=== PATIENT | male | born 1980 | race Caucasian/White ===

== ENCOUNTER → 2017-01-06 | Outpatient (CLI) | payer MEDICARE, OTHER, MEDICAID ==
[~2017-01-06] MED LIST: ACET65TA PO; LOPR50TA PO; MAGN500T2 PO; NEPHROVITE PO; TUMS500C PO; [UNRECOGNIZED DRUG - OTHER] IV
[2017-01-06 09:37] LABS: BASO % 0.4 % (0.0-1.0); EOS # 0.3 K/mm3 (0.0-0.50); EOS % 3.9 % (0.0-3.0); LARGE UNSTAINED CELL # 0.2 K/mm3 (0.0-0.4); LARGE UNSTAINED CELL % 2.5 % (0.0-4.0); LYMPH % 12.2 % (24.0-44.0); MEAN CORPUSCULAR HEMOGLOBIN 28.7 pg (27.0-33.0); MEAN CORPUSCULAR HGB CONC 32.7 g/dl (32.0-36.5); MEAN CORPUSCULAR VOLUME 87.7 fl (80.0-96.0); MONO # 0.5 K/mm3 (0.0-0.8); MONO % 6.7 % (0.0-5.0); NEUTROPHILS # 5.9 K/mm3 (1.8-7.7); NEUTROPHILS % 74.3 % (36.0-66.0); PLATELET COUNT, AUTOMATED 265 k/mm3 (150-450); WHITE BLOOD COUNT 7.9 K/mm3 (4.0-10.0)
[2017-01-06 09:44] LABS: ALBUMIN 3.8 GM/DL (3.2-5.2); ALBUMIN/GLOBULIN RATIO 1.27 (1.00-1.93); ALKALINE PHOSPHATASE 158 U/L (45-117); ALT/SGPT 25 U/L (12-78); ANION GAP 6 MEQ/L (8-16); AST/SGOT 10 U/L (15-37); BILIRUBIN,DIRECT < 0.1 MG/DL (0.0-0.2); BILIRUBIN,TOTAL 0.3 MG/DL (0.2-1.0); BLOOD UREA NITROGEN 28 MG/DL (7-18); CALCIUM LEVEL 8.5 MG/DL (8.5-10.1); CARBON DIOXIDE LEVEL 25 MEQ/L (21-32); CHLORIDE LEVEL 110 MEQ/L (98-107); CREATININE FOR GFR 1.71 MG/DL (0.70-1.30); GLOMERULAR FILTRATION RATE 48.2 (>60); GLUCOSE, FASTING 84 MG/DL (70-105); MAGNESIUM LEVEL 1.7 MG/DL (1.8-2.4); PHOSPHORUS LEVEL 2.9 MG/DL (2.5-4.9); POTASSIUM SERUM 4.6 MEQ/L (3.5-5.1); SODIUM LEVEL 141 MEQ/L (136-145); TOTAL PROTEIN 6.8 GM/DL (6.4-8.2)
== END ==
LOC: M LAB 08:42
PROVIDERS: ATTEND Internal Medicine Nephrology
DX: Z94.0 Kidney transplant status (principal); Z79.899 Other long term (current) drug therapy

== ENCOUNTER → 2017-01-18 | Outpatient (CLI) | payer MEDICARE, OTHER, MEDICAID ==
[2017-01-18 09:24] LABS: BASO % 0.3 % (0.0-1.0); EOS # 0.3 K/mm3 (0.0-0.50); EOS % 4.2 % (0.0-3.0); LARGE UNSTAINED CELL # 0.1 K/mm3 (0.0-0.4); LYMPH # 1.1 K/mm3 (1.5-4.5); LYMPH % 15.7 % (24.0-44.0); MEAN CORPUSCULAR HEMOGLOBIN 28.8 pg (27.0-33.0); MEAN CORPUSCULAR HGB CONC 33.2 g/dl (32.0-36.5); MEAN CORPUSCULAR VOLUME 86.7 fl (80.0-96.0); MONO # 0.5 K/mm3 (0.0-0.8); NEUTROPHILS # 4.9 K/mm3 (1.8-7.7); NEUTROPHILS % 70.8 % (36.0-66.0); PLATELET COUNT, AUTOMATED 257 k/mm3 (150-450); WHITE BLOOD COUNT 6.8 K/mm3 (4.0-10.0)
[2017-01-18 09:46] LABS: ALBUMIN 3.8 GM/DL (3.2-5.2); ALBUMIN/GLOBULIN RATIO 1.23 (1.00-1.93); ALKALINE PHOSPHATASE 158 U/L (45-117); ALT/SGPT 27 U/L (12-78); ANION GAP 8 MEQ/L (8-16); AST/SGOT 10 U/L (15-37); BILIRUBIN,DIRECT < 0.1 MG/DL (0.0-0.2); BILIRUBIN,TOTAL 0.3 MG/DL (0.2-1.0); BLOOD UREA NITROGEN 26 MG/DL (7-18); CALCIUM LEVEL 8.8 MG/DL (8.5-10.1); CARBON DIOXIDE LEVEL 22 MEQ/L (21-32); CHLORIDE LEVEL 111 MEQ/L (98-107); CREATININE FOR GFR 1.66 MG/DL (0.70-1.30); GLOMERULAR FILTRATION RATE 49.9 (>60); GLUCOSE, FASTING 83 MG/DL (70-105); MAGNESIUM LEVEL 1.8 MG/DL (1.8-2.4); PHOSPHORUS LEVEL 2.7 MG/DL (2.5-4.9); POTASSIUM SERUM 4.6 MEQ/L (3.5-5.1); SODIUM LEVEL 141 MEQ/L (136-145); TOTAL PROTEIN 6.9 GM/DL (6.4-8.2)
== END ==
LOC: M LAB 08:31
PROVIDERS: ATTEND Internal Medicine Nephrology
DX: N18.5 Chronic kidney disease, stage 5 (principal); D84.9 Immunodeficiency, unspecified; Z79.899 Other long term (current) drug therapy; Z94.0 Kidney transplant status

== ENCOUNTER → 2017-05-31 | Outpatient (CLI) | payer MEDICARE, OTHER, MEDICAID ==
[2017-05-31 09:49] LABS: BASO % 0.2 % (0.0-1.0); EOS # 0.1 10^3/uL (0.0-0.50); EOS % 1.6 % (0.0-3.0); IMMATURE GRANULOCYTE % 0.5 % (0-0); LYMPH % 11.1 % (24.0-44.0); MEAN CORPUSCULAR HEMOGLOBIN 28.2 pg (27.0-33.0); MEAN CORPUSCULAR HGB CONC 32.5 g/dl (32.0-36.5); MEAN CORPUSCULAR VOLUME 86.7 fl (80.0-96.0); MONO # 0.8 10^3/uL (0.0-0.8); MONO % 8.9 % (0.0-5.0); NEUTROPHILS # 6.7 10^3/uL (1.8-7.7); NEUTROPHILS % 77.7 % (36.0-66.0); PLATELET COUNT, AUTOMATED 289 10^3/uL (150-450); RED CELL DISTRIBUTION WIDTH 13.5 % (11.5-14.5); WHITE BLOOD COUNT 8.6 10^3/uL (4.0-10.0)
[2017-05-31 10:24] LABS: ALBUMIN 3.8 GM/DL (3.2-5.2); ALBUMIN/GLOBULIN RATIO 1.19 (1.00-1.93); ALKALINE PHOSPHATASE 111 U/L (45-117); ALT/SGPT 26 U/L (12-78); ANION GAP 6 MEQ/L (8-16); AST/SGOT 9 U/L (15-37); BILIRUBIN,DIRECT < 0.1 MG/DL (0.0-0.2); BILIRUBIN,TOTAL 0.2 MG/DL (0.2-1.0); BLOOD UREA NITROGEN 20 MG/DL (7-18); CALCIUM LEVEL 8.9 MG/DL (8.5-10.1); CARBON DIOXIDE LEVEL 26 MEQ/L (21-32); CHLORIDE LEVEL 109 MEQ/L (98-107); CHOLESTEROL LEVEL 144 MG/DL (<200); CREATININE FOR GFR 1.45 MG/DL (0.70-1.30); GLOMERULAR FILTRATION RATE 58.3 (>60); GLUCOSE, FASTING 72 MG/DL (70-105); MAGNESIUM LEVEL 1.9 MG/DL (1.8-2.4); PHOSPHORUS LEVEL 2.8 MG/DL (2.5-4.9); POTASSIUM SERUM 4.6 MEQ/L (3.5-5.1); SODIUM LEVEL 141 MEQ/L (136-145); TRIGLYCERIDES LEVEL 72 MG/DL (<150)
== END ==
LOC: M LAB 08:37
PROVIDERS: ATTEND Internal Medicine Nephrology
DX: N18.5 Chronic kidney disease, stage 5 (principal); D84.9 Immunodeficiency, unspecified; Z94.0 Kidney transplant status; Z79.899 Other long term (current) drug therapy

== ENCOUNTER → 2017-10-21 | Outpatient (CLI) | payer MEDICARE, OTHER, MEDICAID ==
[2017-10-21 09:55] LABS: APPEARANCE, URINE CLEAR (CLEAR); BACTERIA, URINE AUTO NEGATIVE (NEGATIVE); BILIRUBIN, URINE AUTO NEGATIVE (NEGATIVE); BLOOD, URINE BLOOD 1+ (NEGATIVE); COLOR, URINE STRAW (YELLOW); GLUCOSE, URINE (UA) AUTO NEGATIVE (NEGATIVE); KETONE, URINE AUTO NEGATIVE (NEGATIVE); LEUKOCYTE ESTERASE, URINE AUTO NEGATIVE (NEGATIVE); MUCUS, URINE SMALL (NEGATIVE); NITRITE, URINE AUTO NEGATIVE (NEGATIVE); PROTEIN, URINE AUTO NEGATIVE (NEGATIVE); RBC, URINE AUTO 0 /HPF (0-3); SPECIFIC GRAVITY URINE AUTO 1.012 (1.002-1.035); SQUAMOUS EPITHELIAL CELL UR AU 0 /HPF (0-6); UROBILINOGEN, URINE AUTO 0.2 mg/dL (0.0-2.0); WBC, URINE AUTO 1 /HPF (0-3)
[2017-10-21 10:25] LABS: CREATININE,RANDOM URINE 80.7 MG/DL; TOTAL PROTEIN,RANDOM URINE 19.2 MG/DL (0.0-12.0)
[2017-10-21 10:32] LABS: ALBUMIN 4.1 GM/DL (3.2-5.2); ALBUMIN/GLOBULIN RATIO 1.37 (1.00-1.93); ALKALINE PHOSPHATASE 86 U/L (45-117); ALT/SGPT 18 U/L (12-78); ANION GAP 7 MEQ/L (8-16); AST/SGOT 8 U/L (7-37); BILIRUBIN,DIRECT 0.1 MG/DL (0.0-0.2); BILIRUBIN,TOTAL 0.3 MG/DL (0.2-1.0); BLOOD UREA NITROGEN 32 MG/DL (7-18); CALCIUM LEVEL 8.6 MG/DL (8.5-10.1); CARBON DIOXIDE LEVEL 24 MEQ/L (21-32); CHLORIDE LEVEL 108 MEQ/L (98-107); CHOLESTEROL LEVEL 141 MG/DL (<200); CHOLESTEROL RISK RATIO 2.431 (<5); CREATININE FOR GFR 1.79 MG/DL (0.70-1.30); GLOMERULAR FILTRATION RATE 45.7 (>60); GLUCOSE, FASTING 91 MG/DL (70-100); HDL CHOLESTEROL 58 MG/DL (>40); LDL CHOLESTEROL 66.6 MG/DL (<100); MAGNESIUM LEVEL 1.8 MG/DL (1.8-2.4); NON-HDL-C 83 MG/DL; PHOSPHORUS LEVEL 2.9 MG/DL (2.5-4.9); POTASSIUM SERUM 4.5 MEQ/L (3.5-5.1); SODIUM LEVEL 139 MEQ/L (136-145); TOTAL PROTEIN 7.1 GM/DL (6.4-8.2); TRIGLYCERIDES LEVEL 82 MG/DL (<150)
[2017-10-21 10:42] LABS: BASO # 0.1 10^3/uL (0.0-0.2); BASO % 0.5 % (0.0-1.0); EOS % 0.2 % (0.0-3.0); HEMATOCRIT 41.3 % (42.0-52.0); HEMOGLOBIN 13.6 g/dl (14.0-18.0); IMMATURE GRANULOCYTE % 1.2 % (0-3.0); LYMPH # 1.5 10^3/uL (1.5-4.5); LYMPH % 13.7 % (24.0-44.0); MEAN CORPUSCULAR HEMOGLOBIN 27.8 pg (27.0-33.0); MEAN CORPUSCULAR HGB CONC 32.9 g/dl (32.0-36.5); MEAN CORPUSCULAR VOLUME 84.5 fl (80.0-96.0); MONO # 0.9 10^3/uL (0.0-0.8); MONO % 7.9 % (0.0-5.0); NEUTROPHILS # 8.5 10^3/uL (1.8-7.7); NEUTROPHILS % 76.5 % (36.0-66.0); PLATELET COUNT, AUTOMATED 262 10^3/uL (150-450); RED BLOOD COUNT 4.89 10^6/uL (4.30-6.10); RED CELL DISTRIBUTION WIDTH 13.2 % (11.5-14.5); WHITE BLOOD COUNT 11.1 10^3/uL (4.0-10.0)
== END ==
LOC: M LAB 08:56
DX: Z94.0 Kidney transplant status (principal); N18.5 Chronic kidney disease, stage 5; D84.9 Immunodeficiency, unspecified; Z79.899 Other long term (current) drug therapy
CPT/HCPCS: 83735

== ENCOUNTER → 2017-12-09 | Outpatient (CLI) | payer OTHER, MEDICARE, MEDICAID ==
[2017-12-09 10:41] LABS: BASO % 0.3 % (0.0-1.0); EOS # 0.1 10^3/uL (0.0-0.50); EOS % 0.9 % (0.0-3.0); HEMATOCRIT 40.4 % (42.0-52.0); HEMOGLOBIN 13.1 g/dl (13.5-17.5); IMMATURE GRANULOCYTE % 0.5 % (0-3.0); LYMPH # 1.1 10^3/uL (1.5-4.5); LYMPH % 11.8 % (24.0-44.0); MEAN CORPUSCULAR HEMOGLOBIN 28.1 pg (27.0-33.0); MEAN CORPUSCULAR HGB CONC 32.4 g/dl (32.0-36.5); MEAN CORPUSCULAR VOLUME 86.5 fl (80.0-96.0); MONO # 0.7 10^3/uL (0.0-0.8); MONO % 7.3 % (0.0-5.0); NEUTROPHILS # 7.4 10^3/uL (1.8-7.7); NEUTROPHILS % 79.2 % (36.0-66.0); PLATELET COUNT, AUTOMATED 256 10^3/uL (150-450); RED BLOOD COUNT 4.67 10^6/uL (4.30-6.10); RED CELL DISTRIBUTION WIDTH 14.4 % (11.5-14.5); WHITE BLOOD COUNT 9.3 10^3/uL (4.0-10.0)
[2017-12-09 10:44] LABS: APPEARANCE, URINE CLEAR (CLEAR); BACTERIA, URINE AUTO NEGATIVE (NEGATIVE); BILIRUBIN, URINE AUTO NEGATIVE (NEGATIVE); BLOOD, URINE BLOOD 1+ (NEGATIVE); COLOR, URINE YELLOW (YELLOW); GLUCOSE, URINE (UA) AUTO NEGATIVE (NEGATIVE); KETONE, URINE AUTO NEGATIVE (NEGATIVE); LEUKOCYTE ESTERASE, URINE AUTO NEGATIVE (NEGATIVE); NITRITE, URINE AUTO NEGATIVE (NEGATIVE); PROTEIN, URINE AUTO NEGATIVE (NEGATIVE); RBC, URINE AUTO 2 /HPF (0-3); SPECIFIC GRAVITY URINE AUTO 1.015 (1.002-1.035); SQUAMOUS EPITHELIAL CELL UR AU 0 /HPF (0-6); UROBILINOGEN, URINE AUTO 0.2 mg/dL (0.0-2.0); WBC, URINE AUTO 0 /HPF (0-3)
[2017-12-09 11:09] LABS: ALBUMIN/GLOBULIN RATIO 1.25 (1.00-1.93); ALKALINE PHOSPHATASE 85 U/L (45-117); ALT/SGPT 20 U/L (12-78); ANION GAP 7 MEQ/L (8-16); AST/SGOT 8 U/L (7-37); BILIRUBIN,DIRECT < 0.1 MG/DL (0.0-0.2); BILIRUBIN,TOTAL 0.3 MG/DL (0.2-1.0); BLOOD UREA NITROGEN 28 MG/DL (7-18); CALCIUM LEVEL 8.6 MG/DL (8.5-10.1); CARBON DIOXIDE LEVEL 23 MEQ/L (21-32); CHLORIDE LEVEL 112 MEQ/L (98-107); CREATININE FOR GFR 1.54 MG/DL (0.70-1.30); GLOMERULAR FILTRATION RATE 54.1 (>60); GLUCOSE, FASTING 77 MG/DL (70-100); MAGNESIUM LEVEL 1.7 MG/DL (1.8-2.4); PHOSPHORUS LEVEL 2.6 MG/DL (2.5-4.9); POTASSIUM SERUM 4.5 MEQ/L (3.5-5.1); SODIUM LEVEL 142 MEQ/L (136-145); TOTAL PROTEIN 7.2 GM/DL (6.4-8.2)
== END ==
LOC: M LAB 09:55
DX: N18.5 Chronic kidney disease, stage 5 (principal); Z94.0 Kidney transplant status; D84.9 Immunodeficiency, unspecified; Z79.899 Other long term (current) drug therapy
CPT/HCPCS: 83735

== ENCOUNTER 2018-05-18 08:29 | Inpatient (IN) | payer MEDICARE, MEDICAID ==
[2018-05-18 09:43] LABS: BASO % 0.2 % (0.0-1.0); EOS # 0.1 10^3/uL (0.0-0.50); EOS % 0.6 % (0.0-3.0); HEMOGLOBIN 14.1 g/dl (13.5-17.5); IMMATURE GRANULOCYTE % 0.6 % (0-3.0); LYMPH # 0.6 10^3/uL (1.5-4.5); LYMPH % 4.3 % (24.0-44.0); MEAN CORPUSCULAR HEMOGLOBIN 28.2 pg (27.0-33.0); MONO # 0.8 10^3/uL (0.0-0.8); MONO % 5.4 % (0.0-5.0); NEUTROPHILS # 12.6 10^3/uL (1.8-7.7); NEUTROPHILS % 88.9 % (36.0-66.0); PLATELET COUNT, AUTOMATED 247 10^3/uL (150-450); RED CELL DISTRIBUTION WIDTH 14.3 % (11.5-14.5); WHITE BLOOD COUNT 14.1 10^3/uL (4.0-10.0)
[2018-05-18 10:00] LABS: ERYTHROCYTE SEDIMENTATION RATE 42 mm/hr (0-15)
[2018-05-18 10:09] LABS: ANION GAP 11 MEQ/L (8-16); BLOOD UREA NITROGEN 30 MG/DL (7-18); CALCIUM LEVEL 9.1 MG/DL (8.5-10.1); CARBON DIOXIDE LEVEL 21 MEQ/L (21-32); CHLORIDE LEVEL 110 MEQ/L (98-107); GLOMERULAR FILTRATION RATE 32.4 (>60); GLUCOSE, FASTING 115 MG/DL (70-100); POTASSIUM SERUM 4.6 MEQ/L (3.5-5.1); SODIUM LEVEL 142 MEQ/L (136-145)
[2018-05-18 10:34] LABS: LACTIC ACID SEPSIS PROTOCOL 1.2 MMOL/L (0.4-2.0)
[2018-05-18] MEDS: CLINDAMYCIN 600 MG in APPROPRIATE DILUENT 1 EA IV (11:28)
[2018-05-18] MEDS ORDERED: PERCOCET 5MG/325MG TAB PO (12:00)
[2018-05-18] MEDS ORDERED: BISACODYL 5 MG TAB PO (12:00)
[2018-05-18] MEDS ORDERED: ACETAMINOPHEN TAB 650MG DOSE (2X325MG) PO (12:00)
[2018-05-18] MEDS ORDERED: ONDANSETRON 4MG/2ML VIAL (J2405) IV (12:00)
[2018-05-18] MEDS ORDERED: CEFTAROLINE FOSAMIL 300 MG in D5W 50 ML IV (12:00)
[2018-05-18] MEDS: NS 1,000 ML IV ×2 (14:12→21:42)
[2018-05-18] MEDS: HEPARIN SOD (PORCINE) 5000 UNITS/ML VIAL SC ×2 (14:16→21:42)
[2018-05-18] MEDS: CEFTAROLINE FOSAMIL 400 MG in D5W MINI-BAG PLUS 50 ML IV (16:41)
[2018-05-18] MEDS: TOLNAFTATE TOP (20:11)
[2018-05-18] MEDS: TACROLIMUS 1 MG CAP (J7507) PO (20:12)
[2018-05-18] MEDS: TACROLIMUS 0.5 MG CAP PO (20:12)
[2018-05-18] MEDS: MYCOPHENOLATE MOFETIL 250 MG CAP (J7517) PO (20:12)
[2018-05-19] MEDS: CEFTAROLINE FOSAMIL 400 MG in D5W MINI-BAG PLUS 50 ML IV ×2 (01:10→12:39)
[2018-05-19] MEDS: HEPARIN SOD (PORCINE) 5000 UNITS/ML VIAL SC ×3 (05:35→20:51)
[2018-05-19 06:05] LABS: HEMATOCRIT 38.6 % (42.0-52.0); HEMOGLOBIN 12.4 g/dl (13.5-17.5); MEAN CORPUSCULAR HEMOGLOBIN 27.9 pg (27.0-33.0); MEAN CORPUSCULAR HGB CONC 32.1 g/dl (32.0-36.5); MEAN CORPUSCULAR VOLUME 86.7 fl (80.0-96.0); PLATELET COUNT, AUTOMATED 227 10^3/uL (150-450); RED BLOOD COUNT 4.45 10^6/uL (4.30-6.10); WHITE BLOOD COUNT 9.8 10^3/uL (4.0-10.0)
[2018-05-19 06:22] LABS: ANION GAP 5 MEQ/L (8-16); BLOOD UREA NITROGEN 26 MG/DL (7-18); CALCIUM LEVEL 8.7 MG/DL (8.5-10.1); CARBON DIOXIDE LEVEL 21 MEQ/L (21-32); CHLORIDE LEVEL 115 MEQ/L (98-107); CREATININE FOR GFR 1.97 MG/DL (0.70-1.30); GLOMERULAR FILTRATION RATE 40.7 (>60); GLUCOSE, FASTING 102 MG/DL (70-100); POTASSIUM SERUM 4.8 MEQ/L (3.5-5.1); SODIUM LEVEL 141 MEQ/L (136-145)
[2018-05-19 07:38] LABS: ERYTHROCYTE SEDIMENTATION RATE 48 mm/hr (0-15)
[2018-05-19] MEDS: predniSONE 5 MG TAB PO (09:16)
[2018-05-19] MEDS: TOLNAFTATE TOP ×2 (09:16→20:51)
[2018-05-19] MEDS: MYCOPHENOLATE MOFETIL 250 MG CAP (J7517) PO ×2 (09:16→20:50)
[2018-05-19] MEDS: TACROLIMUS 1 MG CAP (J7507) PO ×2 (09:16→20:50)
[2018-05-19] MEDS: ASPIRIN 81 MG ENTERIC TAB PO (09:16)
[2018-05-19] MEDS: NS 1,000 ML IV (12:39)
[2018-05-19] MEDS: TACROLIMUS 0.5 MG CAP PO (20:50)
[2018-05-20] MEDS: CEFTAROLINE FOSAMIL 400 MG in D5W MINI-BAG PLUS 50 ML IV ×2 (01:01→11:56)
[2018-05-20] MEDS: HEPARIN SOD (PORCINE) 5000 UNITS/ML VIAL SC (05:33)
[2018-05-20] MEDS: MYCOPHENOLATE MOFETIL 250 MG CAP (J7517) PO (09:16)
[2018-05-20] MEDS: predniSONE 5 MG TAB PO (09:16)
[2018-05-20] MEDS: ASPIRIN 81 MG ENTERIC TAB PO (09:16)
[2018-05-20] MEDS: TACROLIMUS 1 MG CAP (J7507) PO (09:16)
[2018-05-20] MEDS: TOLNAFTATE TOP (09:17)
[2018-05-20 10:02] LABS: HEMATOCRIT 40.6 % (42.0-52.0); HEMOGLOBIN 12.8 g/dl (13.5-17.5); MEAN CORPUSCULAR HEMOGLOBIN 27.8 pg (27.0-33.0); MEAN CORPUSCULAR HGB CONC 31.5 g/dl (32.0-36.5); MEAN CORPUSCULAR VOLUME 88.1 fl (80.0-96.0); PLATELET COUNT, AUTOMATED 248 10^3/uL (150-450); RED BLOOD COUNT 4.61 10^6/uL (4.30-6.10); RED CELL DISTRIBUTION WIDTH 14.3 % (11.5-14.5); WHITE BLOOD COUNT 7.5 10^3/uL (4.0-10.0)
[2018-05-20 10:22] LABS: ANION GAP 6 MEQ/L (8-16); BLOOD UREA NITROGEN 22 MG/DL (7-18); CALCIUM LEVEL 9.3 MG/DL (8.5-10.1); CARBON DIOXIDE LEVEL 23 MEQ/L (21-32); CHLORIDE LEVEL 112 MEQ/L (98-107); CREATININE FOR GFR 1.87 MG/DL (0.70-1.30); GLOMERULAR FILTRATION RATE 43.2 (>60); GLUCOSE, FASTING 99 MG/DL (70-100); POTASSIUM SERUM 4.6 MEQ/L (3.5-5.1); SODIUM LEVEL 141 MEQ/L (136-145)
== END 2018-05-20 13:22 | disposition home or self-care (01) | DRG 872 ==
LOC: M ED 08:29 → M ED INP 11:53 → M MSPAV 13:00
DX: A41.9 Sepsis, unspecified organism (principal); L03.116 Cellulitis of left lower limb; N17.9 Acute kidney failure, unspecified; Z94.0 Kidney transplant status; R65.20 Severe sepsis without septic shock; E66.01 Morbid (severe) obesity due to excess calories; I10 Essential (primary) hypertension; B35.3 Tinea pedis; M10.9 Gout, unspecified; Z79.52 Long term (current) use of systemic steroids; Z79.82 Long term (current) use of aspirin; Z79.899 Other long term (current) drug therapy; Z68.32 Body mass index [BMI] 32.0-32.9, adult

== ENCOUNTER → 2018-07-30 | Outpatient (REF) | payer MEDICARE | LOC: M SFHCLERA 15:05 | DX: J02.9 Acute pharyngitis, unspecified (principal) ==

== ENCOUNTER → 2018-11-15 | Outpatient (CLI) | payer MEDICARE ==
[~2018-11-15] MED LIST changes: +ASPI1TAB15 PO; +AUGM875T28 PO; +MECL100C PO; +METO25TA4 PO; +MYCO250C PO; +PRED5PAK PO; +PRED5TA PO; +TACR0.5C3 PO; +TACR1CAP3 PO; +[UNRECOGNIZED DRUG - CODE] TOP
[2018-11-15 10:21] LABS: BASO % 0.4 % (0.0-1.0); EOS # 0.1 10^3/uL (0.0-0.50); EOS % 1.1 % (0.0-3.0); HEMATOCRIT 39.9 % (42.0-52.0); HEMOGLOBIN 12.8 g/dl (13.5-17.5); LYMPH # 1.1 10^3/uL (1.5-4.5); LYMPH % 13.4 % (24.0-44.0); MEAN CORPUSCULAR HEMOGLOBIN 28.4 pg (27.0-33.0); MEAN CORPUSCULAR HGB CONC 32.1 g/dl (32.0-36.5); MEAN CORPUSCULAR VOLUME 88.7 fl (80.0-96.0); MONO # 0.8 10^3/uL (0.0-0.8); MONO % 9.6 % (0.0-5.0); NEUTROPHILS # 6.2 10^3/uL (1.8-7.7); NEUTROPHILS % 74.7 % (36.0-66.0); PLATELET COUNT, AUTOMATED 243 10^3/uL (150-450); WHITE BLOOD COUNT 8.3 10^3/uL (4.0-10.0)
[2018-11-15 10:49] LABS: ALBUMIN 3.9 GM/DL (3.2-5.2); CALCIUM LEVEL 8.3 MG/DL (8.5-10.1); CREATININE FOR GFR 2.01 MG/DL (0.70-1.30); GLOMERULAR FILTRATION RATE 39.6 (>60); MAGNESIUM LEVEL 1.5 MG/DL (1.8-2.4); PHOSPHORUS LEVEL 2.5 MG/DL (2.5-4.9); POTASSIUM SERUM 4.3 MEQ/L (3.5-5.1)
[2018-11-15 11:03] LABS: CREATININE,RANDOM URINE 75.8 MG/DL; TOTAL PROTEIN,RANDOM URINE 22.8 MG/DL (0.0-12.0)
[2018-11-15 14:01] LABS: APPEARANCE, URINE CLEAR (CLEAR); BACTERIA, URINE AUTO NEGATIVE (NEGATIVE); BILIRUBIN, URINE AUTO NEGATIVE (NEGATIVE); BLOOD, URINE BLOOD 1+ (NEGATIVE); COLOR, URINE STRAW (YELLOW); GLUCOSE, URINE (UA) AUTO NEGATIVE (NEGATIVE); KETONE, URINE AUTO NEGATIVE (NEGATIVE); LEUKOCYTE ESTERASE, URINE AUTO NEGATIVE (NEGATIVE); NITRITE, URINE AUTO NEGATIVE (NEGATIVE); PROTEIN, URINE AUTO NEGATIVE (NEGATIVE); RBC, URINE AUTO 1 /HPF (0-3); SQUAMOUS EPITHELIAL CELL UR AU 0 /HPF (0-6); UROBILINOGEN, URINE AUTO 0.2 mg/dL (0.0-2.0); WBC, URINE AUTO 1 /HPF (0-3)
== END ==
LOC: M LAB 08:54
PROVIDERS: ATTEND Internal Medicine Nephrology
DX: N18.5 Chronic kidney disease, stage 5 (principal); D84.9 Immunodeficiency, unspecified; Z94.0 Kidney transplant status; Z79.899 Other long term (current) drug therapy

== ENCOUNTER → 2019-06-27 | Outpatient (CLI) | payer MEDICARE ==
[2019-06-27 09:21] LABS: BASO % 0.4 % (0.0-1.0); EOS # 0.1 10^3/uL (0.0-0.5); EOS % 1.1 % (0.0-3.0); HEMATOCRIT 43.8 % (42.0-52.0); HEMOGLOBIN 13.7 g/dl (13.5-17.5); LYMPH % 13.2 % (24.0-44.0); MEAN CORPUSCULAR HEMOGLOBIN 28.4 pg (27.0-33.0); MEAN CORPUSCULAR HGB CONC 31.3 g/dl (32.0-36.5); MEAN CORPUSCULAR VOLUME 90.9 fl (80.0-96.0); MONO # 0.6 10^3/uL (0.0-0.8); MONO % 8.8 % (0.0-5.0); NEUTROPHILS # 5.5 10^3/uL (1.5-8.5); NEUTROPHILS % 76.2 % (36.0-66.0); PLATELET COUNT, AUTOMATED 249 10^3/uL (150-450); RED BLOOD COUNT 4.82 10^6/uL (4.30-6.10); WHITE BLOOD COUNT 7.2 10^3/uL (4.0-10.0)
[2019-06-27 09:22] LABS: APPEARANCE, URINE CLEAR (CLEAR); BACTERIA, URINE AUTO NEGATIVE (NEGATIVE); BILIRUBIN, URINE AUTO NEGATIVE (NEGATIVE); BLOOD, URINE BLOOD 1+ (NEGATIVE); COLOR, URINE YELLOW (YELLOW); GLUCOSE, URINE (UA) AUTO NEGATIVE (NEGATIVE); KETONE, URINE AUTO NEGATIVE (NEGATIVE); LEUKOCYTE ESTERASE, URINE AUTO NEGATIVE (NEGATIVE); NITRITE, URINE AUTO NEGATIVE (NEGATIVE); PROTEIN, URINE AUTO NEGATIVE (NEGATIVE); RBC, URINE AUTO 2 /HPF (0-3); SPECIFIC GRAVITY URINE AUTO 1.013 (1.002-1.035); SQUAMOUS EPITHELIAL CELL UR AU 0 /HPF (0-6); UROBILINOGEN, URINE AUTO 0.2 mg/dL (0.0-2.0); WBC, URINE AUTO 1 /HPF (0-3)
[2019-06-27 09:37] LABS: TOTAL PROTEIN,RANDOM URINE 41.2 MG/DL (0.0-12.0)
[2019-06-27 09:41] LABS: CALCIUM LEVEL 8.7 MG/DL (8.5-10.1); CREATININE FOR GFR 1.99 MG/DL (0.70-1.30); MAGNESIUM LEVEL 1.5 MG/DL (1.8-2.4); PHOSPHORUS LEVEL 2.6 MG/DL (2.5-4.9); POTASSIUM SERUM 4.7 MEQ/L (3.5-5.1)
== END ==
LOC: M LAB 08:31
PROVIDERS: ATTEND Internal Medicine Nephrology
DX: Z94.0 Kidney transplant status (principal)

== ENCOUNTER → 2021-06-03 | Outpatient (CLI) | payer MEDICARE ==
[~2021-06-03] MED LIST changes: +ASPI-546 PO; -ASPI1TAB15 PO
[2021-06-03 11:49] LABS: BASO % 0.1 % (0.0-1.0); EOS % 0.4 % (0.0-3.0); HEMATOCRIT 41.1 % (42.0-52.0); HEMOGLOBIN 13.4 g/dl (13.5-17.5); LYMPH # 0.8 10^3/uL (1.5-5.0); LYMPH % 11.2 % (24.0-44.0); MEAN CORPUSCULAR HEMOGLOBIN 27.9 pg (27.0-33.0); MEAN CORPUSCULAR HGB CONC 32.6 g/dl (32.0-36.5); MEAN CORPUSCULAR VOLUME 85.6 fl (80.0-96.0); MONO # 0.8 10^3/uL (0.0-0.8); MONO % 11.4 % (2.0-8.0); NEUTROPHILS # 5.4 10^3/uL (1.5-8.5); NEUTROPHILS % 76.3 % (36.0-66.0); PLATELET COUNT, AUTOMATED 203 10^3/uL (150-450); WHITE BLOOD COUNT 7.1 10^3/uL (4.0-10.0)
[2021-06-03 11:58] LABS: APPEARANCE, URINE HAZY (CLEAR); BACTERIA, URINE AUTO NEGATIVE (NEGATIVE); BILIRUBIN, URINE AUTO NEGATIVE (NEGATIVE); BLOOD, URINE BLOOD 2+ (NEGATIVE); COLOR, URINE YELLOW (YELLOW); GLUCOSE, URINE (UA) AUTO NEGATIVE (NEGATIVE); KETONE, URINE AUTO NEGATIVE (NEGATIVE); LEUKOCYTE ESTERASE, URINE AUTO NEGATIVE (NEGATIVE); NITRITE, URINE AUTO NEGATIVE (NEGATIVE); PROTEIN, URINE AUTO 3+ mg/dL (NEGATIVE); RBC, URINE AUTO 4 /HPF (0-3); SPECIFIC GRAVITY URINE AUTO 1.016 (1.002-1.035); SQUAMOUS EPITHELIAL CELL UR AU 0 /HPF (0-6); UROBILINOGEN, URINE AUTO 0.2 mg/dL (0.0-2.0); WBC, URINE AUTO 1 /HPF (0-3)
[2021-06-03 12:17] LABS: TOTAL PROTEIN,RANDOM URINE 253.4 MG/DL (0.0-12.0)
[2021-06-03 12:32] LABS: ALBUMIN 3.5 GM/DL (3.2-5.2); CALCIUM LEVEL 8.4 MG/DL (8.5-10.1); CREATININE FOR GFR 3.34 MG/DL (0.70-1.30); GLOMERULAR FILTRATION RATE 21.8 (>60); MAGNESIUM LEVEL 1.6 MG/DL (1.8-2.4); POTASSIUM SERUM 4.3 MEQ/L (3.5-5.1)
== END ==
LOC: M LAB 10:45
PROVIDERS: ATTEND Nurse Practitioner Family
DX: Z94.0 Kidney transplant status (principal); N18.5 Chronic kidney disease, stage 5; D84.9 Immunodeficiency, unspecified; Z79.899 Other long term (current) drug therapy

== ENCOUNTER 2021-06-13 09:01 | Inpatient (IN) | payer MEDICARE ==
[~2021-06-13] VITALS: Ht 172.7 cm; Wt 88.9 kg
[2021-06-13] VITALS (65 sets, daily range): BP systolic 75–157; BP diastolic 48–112
--- OUTSIDE RECORDS SUMMARY | 2021-06-13 09:06 | CCD ---
Author Author [facility] Organization [facility] Address Unknown Phone Unavailable Care Team Providers Care Lan Engineer Name Role Phone Thankachan, Reeba VAT WASHER Unavailable Unavailable Thankachan, Reeba VAT WASHER Unavailable Unavailable Thankachan, Reeba VAT WASHER Unavailable Unavailable Thankachan, Reeba VAT WASHER Unavailable Unavailable Thankachan, Reeba VAT WASHER Unavailable Unavailable Thankachan, Reeba VAT WASHER Unavailable Unavailable Thankachan, Reeba VAT WASHER Unavailable Unavailable Thankachan, Reeba VAT WASHER Unavailable Unavailable Thankachan, Reeba VAT WASHER Unavailable Unavailable Thankachan, Reeba VAT WASHER Unavailable Unavailable Thankachan, Reeba VAT WASHER Unavailable Unavailable Thankachan, Reeba VAT WASHER Unavailable Unavailable Thankachan, Reeba VAT WASHER Unavailable Unavailable Thankachan, Reeba VAT WASHER Unavailable Unavailable Thankachan, Reeba VAT WASHER Unavailable Unavailable Thankachan, Reeba VAT WASHER Unavailable Unavailable Thankachan, Reeba VAT WASHER Unavailable Unavailable Thankachan, Reeba VAT WASHER Unavailable Unavailable Thankachan, Reeba VAT WASHER Unavailable Unavailable Thankachan, Reeba VAT WASHER Unavailable Unavailable Thankachan, Reeba VAT WASHER Unavailable Unavailable Thankachan, Reeba VAT WASHER Unavailable Unavailable Thankachan, Reeba VAT WASHER Unavailable Unavailable Thankachan, Reeba VAT WASHER Unavailable Unavailable Thankachan, Reeba VAT WASHER Unavailable Unavailable Thankachan, Reeba VAT WASHER Unavailable Unavailable Thankachan, Reeba VAT WASHER Unavailable Unavailable Thankachan, Reeba VAT WASHER Unavailable Unavailable Thankachan, Reeba VAT WASHER Unavailable Unavailable Thankachan, Reeba VAT WASHER Unavailable Unavailable Thankachan, Reeba VAT WASHER Unavailable Unavailable Thankachan, Reeba VAT WASHER Unavailable Unavailable Thankachan, Reeba VAT WASHER Unavailable Unavailable Thankachan, Reeba VAT WASHER Unavailable Unavailable Thankachan, Reeba VAT WASHER Unavailable Unavailable Thankachan, Reeba VAT WASHER Unavailable Unavailable Thankachan, Reeba VAT WASHER Unavailable Unavailable Thankachan, Reeba VAT WASHER Unavailable Unavailable Thankachan, Reeba VAT WASHER Unavailable Unavailable Thankachan, Reeba VAT WASHER Unavailable Unavailable Thankachan, Reeba VAT WASHER Unavailable Unavailable Thankachan, Reeba VAT WASHER Unavailable Unavailable Thankachan, Reeba VAT WASHER Unavailable Unavailable Thankachan, Reeba VAT WASHER Unavailable Unavailable Thankachan, Reeba VAT WASHER Unavailable Unavailable Thankachan, Reeba VAT WASHER Unavailable Unavailable Thankachan, Reeba VAT WASHER Unavailable Unavailable Thankachan, Reeba VAT WASHER Unavailable Unavailable Re-disclosure Warning The records that you are about to access may contain information from federally-assisted alcohol or drug abuse programs. If such information is present, then the following federally mandated warning applies: This information has been disclosed to you from records protected by federal confidentiality rules (42 CFR part 2). The federal rules prohibit you from making any further disclosure of this information unless further disclosure is expressly permitted by the written consent of the person to whom it pertains or as otherwise permitted by 42 CFR part 2. A general authorization for the release of medical or other information is NOT sufficient for this purpose. The Federal rules restrict any use of the information to criminally investigate or prosecute any alcohol or drug abuse patient.The records that you are about to access may contain highly sensitive health information, the redisclosure of which is protected by Article 27-F of the [facility] Public Health law. If you continue you may have access to information: Regarding HIV / AIDS; Provided by facilities licensed or operated by the [facility] Office of Mental Health; or Provided by the [facility] Office for People With Developmental Disabilities. If such information is present, then the following [facility] mandated warning applies: This information has been disclosed to you from confidential records which are protected by state law. State law prohibits you from making any further disclosure of this information without the specific written consent of the person to whom it pertains, or as otherwise permitted by law. Any unauthorized further disclosure in violation of state law may result in a fine or penitentiary sentence or both. A general authorization for the release of medical or other information is NOT sufficient authorization for further disc losure. Encounters Encounter Providers Location Date Indications Data Source(s ) Outpatient Attender: Uriel Charles NP 12/03/2021 12:00: 00 AM [facility] Outpatient Referrer: Uriel Charles NP 06/22/2021 12:00: 00 AM [facility] Outpatient Attender: Uriel Charles NP [id number] 12:00:00 AM T - 06/04/2021 12:00:00 AM [facility] Outpatient Attender: Uriel Charles NP [id number] 12:00:00 AM [facility] Outpatient Attender: Uriel Charles NP 05/07/2021 12:00: 00 AM [facility] Outpatient Attender: Uriel Charles NP 12:00:00 AM T - 02/04/2021 02:00:16 PM [facility] Outpatient Attender: Uriel Charles NP [id number] 12:00:00 AM EDT - 11/03/2020 02:26:52 PM EDT Encounter for aftercare following other organ transplant [facility] Encounter for aftercare following other organ transplant Outpatient Attender: Uriel Charles NP [id number] 12:00:00 AM EDT - 05/05/2020 03[facility]18[facility]: Uriel Charles NP 04/17/2020 12:00: 00 AM [facility] Medications Medication Brand Name Start Date Product Form Dose Route Admi nistrative Instructions Pharmacy Instructions Status Indications Reaction Description Data Source(s) Tacrolimus 1 MG Oral Capsule Tacrolimus 1 MG Oral Caps ule (PROGRAF) Tacrolimus 1 MG Oral Capsule (PROGRAF) 11/03/2020 12:00:00 AM EDT 2 mg Oral active Take 2 capsules by mouth Two Times Daily [facility] Metoprolol Tartrate 25 MG Oral Tablet Me toprolol Tartrate 25 MG Oral Tablet (LOPRESSOR) Metoprolol Tartrate 25 MG Oral Tablet (LOPRESSOR) 10/14 12:00:00 AM EDT 25 mg Oral active Take 1 tablet by mouth Two Times Daily [facility] Tacrolimus 1 MG Oral Capsule Tacrolimus 1 MG Oral Caps ule (PROGRAF) Tacrolimus 1 MG Oral Capsule (PROGRAF) 06/25/2020 12:00:00 AM EST Oral aborted Take 3 capsules by mouth every morning AND 2 capsules every evening. [facility] Prednisone 5 MG Oral Tablet predniSONE 5 MG Oral Table t (DELTASONE) predniSONE 5 MG Oral Tablet (DELTASONE) 06/25/2020 12:00:00 AM EST 5 mg Oral active Take 1 tablet by mouth daily [facility] mycophenolate mofetil 250 MG Oral Capsul e Mycophenolate Mofetil 250 MG Oral Capsule (CELLCEPT) Mycophenolate Mofetil 250 MG Oral Capsule (CELLCEPT) 06/25/2020 12:00:00 AM EST 1000 mg Oral active Take 4 capsules by mouth two times daily [facility] mycophenolate mofetil 250 MG Oral Capsul e Mycophenolate Mofetil 250 MG Oral Capsule (CELLCEPT) Mycophenolate Mofetil 250 MG Oral Capsule (CELLCEPT) 02/14/2020 12:00:00 AM EDT 1000 mg Oral active Take 4 capsules by mouth Two Times Daily [facility] Prednisone 5 MG Oral Tablet predniSONE 5 MG Oral Table t (DELTASONE) predniSONE 5 MG Oral Tablet (DELTASONE) 01/14/2020 12:00:00 AM EDT 5 mg Oral active Take 1 tablet by mouth daily [facility] Tacrolimus 1 MG Oral Capsule Tacrolimus 1 MG Oral Caps ule (PROGRAF) Tacrolimus 1 MG Oral Capsule (PROGRAF) 12/14/2019 12:00:00 AM EDT Oral active Take 3 capsules by mouth every morning AND 2 capsules every evening. [facility] Metoprolol Tartrate 25 MG Oral Tablet Me toprolol Tartrate 25 MG Oral Tablet (LOPRESSOR) Metoprolol Tartrate 25 MG Oral Tablet (LOPRESSOR) 04/2020 12:00:00 AM EST 25 mg Oral aborted Take 1 tablet by mouth Two Times Daily [facility] mycophenolate mofetil 250 MG Oral Capsul e Mycophenolate Mofetil 250 MG Oral Capsule (CELLCEPT) Mycophenolate Mofetil 250 MG Oral Capsule (CELLCEPT) 07/03/2019 12:00:00 AM EST 1000 mg Oral active Take 4 capsules by mouth Two Times Daily [facility] Tacrolimus 0.5 MG Oral Capsule Tacrolimus 0.5 MG Oral Capsule (PROGRAF) Tacrolimus 0.5 MG Oral Capsule (PROGRAF) 07/02/2019 12:00:00 AM EST 0.5 mg Oral active Take 1 capsule by mo uth Two Times Daily [facility] Tacrolimus 1 MG Oral Capsule Tacrolimus 1 MG Oral Caps ule (PROGRAF) Tacrolimus 1 MG Oral Capsule (PROGRAF) 07/02/2019 12:00:00 AM EST 2 mg Oral active Take 2 capsules by mouth Two Times Daily [facility] Prednisone 5 MG Oral Tablet predniSONE (DELTASONE) 5 M G tablet predniSONE (DELTASONE) 5 MG tablet 06/18/2019 12:00:00 AM EST 5 mg Oral active Take 1 tablet by mouth daily [facility] Insurance Providers Payer name Policy type / Coverage type Policy ID Covered constitution party ID Covered constitution party's relationship to hendricks Policy Hendricks Plan Information MEDICARE A [id number] Self [id number] A MEDICARE A [id number] Self [id number] MEDICARE [id number] Rima [id number] A MEDICARE [id number] Rima [id number] A OTHER B TRANSPLANT Self TRANSPLAN T MEDICAID M [id number] 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 TRANSPLANT [facility] O [id number] S [id number] SP [id number] [facility] [id number] SP [id number] MEDICARE [id number] SP [id number] T CD PHP [id number] Rima [id number] CD PHP [id number] Rima [id number] MEDICAID UNAVAILABLE UNAVAILA BLE ANS-Medicare Part B [id number] MEDICAID [id number] SP [id number] ANS-Medicare Part B [id number] MEDICARE PART A -O/P [id number] 18 [id number] MEDICARE [id number] [facility] TRANSPLANT [facility] [id number] Problems, Conditions, and Diagnoses Code Display Name Description Problem Type Effective Dates Data Source(s) Z79.899 Other long term care pharmacist (current) drug therapy [facility] (current[facility] drug therapy Diagnosis 11/03/2020 10:29:25 AM EDT [facility] Z94.0 Kidney transplant status Kidney transplant status Diag nosis 11/03/2020 10:29:25 AM T [facility] Z48.298 Encounter for aftercare following other organ transplant Encounter for aftercare following other organ transplant Diagnosis 11/03/2020 10:29: 25 AM [facility] trppost trppost Diagnosis 05/05/2020 10:39:19 AM ED [facility] Surgeries/Procedures No Information Results ID Date Data Source [id number] 06/03/2021 03:12:18 PM EDT [facility] Name Value Range Interpretation Code Description Data Jenyn rce(s) Supporting Document(s) Progress Note [facility] RSXXHt6hTrJSNmFe83/RFXhcXQCxv7RvRHihDKk9EXxlMLNwD9XiYDI2gM2xLTA0BKoIYyWvYsVdWKSy lbm [file] bzLB9cT/+long term/f4MEB7kq1XuYUVdTHzbqwPmDfcIGxrcOJNzUffCFzRcUWuZDzIrFBEdEEmtXA0RZZja [file] VRdgOWUOZi6V ID Date Data Source [id number] 06/05/2021 09:06:03 AM EDT [facility] Name Value Range Interpretation Code Description Data Jenny rce(s) Supporting Document(s) Tacrolimus [Mass/volume] in Blood 6.6 ng/mL [facility] Renal Transplant Target ValuesImmediate post-transplant: 10 - 15 ng/mL First 6 months: 6 - 15 ng/mL Greater than 6 months: 6 - 15 ng/mL ID Date Data Source [id number] 05/28/2021 11:26:13 AM EDT [facility] Name Value Range Interpretation Code Description Data Jenny rce(s) Supporting Document(s) Progress Note [facility] IUFEQt0kIgWQIxJf21/FURpzJGNhh0GtYStaHWo6VEhfYETiL8MmCAG2lJ6jHGF7FSxLQcDdEqDyLMZ8 lbm CpPcnFYaLdYXGxNqvTBpKqTJswTclgzMZvTE3RaGX1GYSvF62tIQXtNHTzV9TvLHX2NzW+In1ODERsfG RdTM4YKzxZeQsxi0t1FE8+YP+YgOEmAoVidlcuzaLNghBeg7RIY26Vcy7FYfv0tqPjAPcx/s9dhaY2ZS vgdgjtPNndPP5b74lyaLh89t53JPQi47MwI/UxigUb 6vNir3FeFsjP31tV9sC1ALwbMtGK/VHy+sisE8fvH88msruh1ipYorFc6ffrtAmtJfw9odTYLqrKrS2g X1+yAuWE64SMDCINqa/Z4E/2dsA+qK9JpbTjU0rbTSEpi3d4X+WKOXfJWEStpVg+pcp0XKjF+iCWkQis M8Oh0kbIupgcxT+HWpGysVv+traeWTUgdrRBsRU4hc dOJqs070uBK6Nrqb9Evy4A4J34f7+ZDK3TyotqANGbZLknPTo2dWGkSP9xvgHNZ+D8RQTAdvNGf4EbjP UYQt5L+I5aQsUFehRkqUmStakxHLVsJX3u/7gzomHthxXrs+TakYMeUsUPlWqN9+ORC18iBLOchPUvLb gWrenewcPA6rGqchLV6sAhpKXo2ekHhtUjY5FBrxfy w66YaGb8G+coxmRvPx/3+uzsw+supervising film or videotape editor/W+JI9QDt0EnKRny1sWsNzTDTTbb2mDXq5szgYd49Cl4ofF5/lN [file] QuOZY3GrUvCQ2SXs1CYjI1NNF2vQNbIe5DKfQ1EiJMBpNbMD4HRCj= ID Date Data Source [id number] 05/07/2021 01:17:46 PM EDT [facility] Name Value Range Interpretation Code Description Data Jenny rce(s) Supporting Document(s) Progress Note [facility] ZZQWQp0wMdEBVdIi03/CKZhxAPRci6RsMVblMSq3ZGkbPBBwE3WtZDI5tG4xBXA5AYvPVbQoLtUoWXQk lbm [file] LM8USPh= ID Date Data Source [id number] 05/09/2020 03:03:45 PM EDT [facility] Name Value Range Interpretation Code Description Data Jenny rce(s) Supporting Document(s) Progress Note [facility] JXFOIf3iBoZGLaOm58/KZZktIBYym1MzKNzcSRs8MJerZWEzV6DrVZL1oR1qCDS6PPtAVeZzFbQdFVI0 lbm EzLmfERnWvVDXoYqlYWuVsIZczOsoikAQyBL1JyPD9GMXpR55oMQPlDMBbM2GfUWEdTMW+Cb7EZEObnB JkGK4CWxzH0Z55VtvOZx1/Wh5MP5OX18lV9KqoJNF3iFUonFxhnizBH3k8jP5ni7h18TY+DD3j3miXJq HDMo89it4PZdvigLrHeOI2f8fKbsy/e8qTSZR1PoC/ Lf6ZGF+dXqvf/90uShf5cUoYp4MLaHt+p4hE3AR+z0Df/+I5psp45bz3KxEttn94N2brep4ouhxv+RICARDA [file] ShXiAg9kLHWOMe9+ORqscHPddBixXAAETdnpJCHsITzjPHVPNu5X Procedure Social History No Information Patient Treatment Plan of Care Planned Activity Planned Date Details Description Data Source (s) Metoprolol Tartrate 25 MG Oral Tablet 11/03/2020 12:00:00 AM [facility] Tacrolimus 1 MG Oral Capsule 11/03/2020 12:00:00 AM [facility] mycophenolate mofetil 250 MG Oral Capsule 06/25/2020 12:00:00 AM [facility] Prednisone 5 MG Oral Tablet 06/25/2020 12:00:00 AM [facility] Tacrolimus 1 MG Oral Capsule 06/25/2020 12:00:00 AM [facility] mycophenolate mofetil 250 MG Oral Capsule 02/14/2020 12:00:00 AM [facility] Prednisone 5 MG Oral Tablet 01/14/2020 12:00:00 AM [facility] Tacrolimus 1 MG Oral Capsule 12/14/2019 12:00:00 AM [facility] Metoprolol Tartrate 25 MG Oral Tablet 08/23/2019 12:00:00 AM [facility] mycophenolate mofetil 250 MG Oral Capsule 07/03/2019 12:00:00 AM [facility] Tacrolimus 0.5 MG Oral Capsule 07/02/2019 12:00:00 AM [facility] Tacrolimus 1 MG Oral Capsule 07/02/2019 12:00:00 AM [facility] Prednisone 5 MG Oral Tablet 06/18/2019 12:00:00 AM [facility]
[2021-06-13] MEDS ORDERED: MIDAZOLAM INJ 2MG/2ML VIAL (J2250 PER 1MG) IV STA ×5 (09:19→21:12)
[2021-06-13] MEDS ORDERED: fentaNYL 100 MCG/2 ML INJECTION (J3010) IV ONE (09:20)
[2021-06-13] MEDS ORDERED: LIDOCAINE 1% MDV 20ML VIAL SC ONE ×2 (09:25)
--- NOTE | 2021-06-13 09:37 | REP ---
INDICATION: SOB. COMPARISON: PA and lateral chest, 03/19/2016. TECHNIQUE: AP portable chest image was obtained. FINDINGS: There is a 29% left pneumothorax extending from the apex to the base. There is subcutaneous emphysema over the right lateral chest and in the lower neck bilaterally. There is probable pneumomediastinum. The heart size is normal. There may be mild interstitial lung disease bilaterally. The upper abdominal bowel gas pattern is normal. There are surgical clips in the base of the neck on the right, probable parathyroidectomy. IMPRESSION: 1. Moderate left pneumothorax without evidence of tension. 2. There is pneumomediastinum and predominantly right-sided subcutaneous emphysema. Critical Findings: Moderate left pneumothorax The critical information above was relayed directly by me by telephone to Chantal Clemente on 06/13/2021 at 9:33 am with readback verification. <Electronically signed by Ariel Rodriguez > 06/13/21 [id number]
[2021-06-13 10:00] LABS: HEMATOCRIT 46.3 % (42.0-52.0); HEMOGLOBIN 15.8 g/dl (13.5-17.5); MEAN CORPUSCULAR HEMOGLOBIN 27.9 pg (27.0-33.0); MEAN CORPUSCULAR HGB CONC 34.1 g/dl (32.0-36.5); MEAN CORPUSCULAR VOLUME 81.7 fl (80.0-96.0); PLATELET COUNT, AUTOMATED 616 10^3/uL (150-450); RED BLOOD COUNT 5.67 10^6/uL (4.30-6.10)
[2021-06-13 10:04] LABS: WHITE BLOOD COUNT 32.6 10^3/uL (4.0-10.0)
[2021-06-13] MEDS ORDERED: cefTRIAXone SOD 2 GM in D5W MINI-BAG PLUS 50 ML IV ONE (10:05)
--- OUTSIDE RECORDS SUMMARY | 2021-06-13 10:05 | CCD ---
Author Author [facility] Organization [facility] Address Unknown Phone Unavailable Care Team Providers Care Business Continuity Director Name Role Phone Thankachan, Reeba MANAGER STONE Unavailable Unavailable Thankachan, Reeba MANAGER STONE Unavailable Unavailable Thankachan, Reeba MANAGER STONE Unavailable Unavailable Thankachan, Reeba MANAGER STONE Unavailable Unavailable Thankachan, Reeba MANAGER STONE Unavailable Unavailable Thankachan, Reeba MANAGER STONE Unavailable Unavailable Thankachan, Reeba MANAGER STONE Unavailable Unavailable Thankachan, Reeba MANAGER STONE Unavailable Unavailable Thankachan, Reeba MANAGER STONE Unavailable Unavailable Thankachan, Reeba MANAGER STONE Unavailable Unavailable Thankachan, Reeba MANAGER STONE Unavailable Unavailable Thankachan, Reeba MANAGER STONE Unavailable Unavailable Thankachan, Reeba MANAGER STONE Unavailable Unavailable Thankachan, Reeba MANAGER STONE Unavailable Unavailable Thankachan, Reeba MANAGER STONE Unavailable Unavailable Thankachan, Reeba MANAGER STONE Unavailable Unavailable Thankachan, Reeba MANAGER STONE Unavailable Unavailable Thankachan, Reeba MANAGER STONE Unavailable Unavailable Thankachan, Reeba MANAGER STONE Unavailable Unavailable Thankachan, Reeba MANAGER STONE Unavailable Unavailable Thankachan, Reeba MANAGER STONE Unavailable Unavailable Thankachan, Reeba MANAGER STONE Unavailable Unavailable Thankachan, Reeba MANAGER STONE Unavailable Unavailable Thankachan, Reeba MANAGER STONE Unavailable Unavailable Thankachan, Reeba MANAGER STONE Unavailable Unavailable Thankachan, Reeba MANAGER STONE Unavailable Unavailable Thankachan, Reeba MANAGER STONE Unavailable Unavailable Thankachan, Reeba MANAGER STONE Unavailable Unavailable Thankachan, Reeba MANAGER STONE Unavailable Unavailable Thankachan, Reeba MANAGER STONE Unavailable Unavailable Thankachan, Reeba MANAGER STONE Unavailable Unavailable Thankachan, Reeba MANAGER STONE Unavailable Unavailable Thankachan, Reeba MANAGER STONE Unavailable Unavailable Thankachan, Reeba MANAGER STONE Unavailable Unavailable Thankachan, Reeba MANAGER STONE Unavailable Unavailable Thankachan, Reeba MANAGER STONE Unavailable Unavailable Thankachan, Reeba MANAGER STONE Unavailable Unavailable Thankachan, Reeba MANAGER STONE Unavailable Unavailable Thankachan, Reeba MANAGER STONE Unavailable Unavailable Thankachan, Reeba MANAGER STONE Unavailable Unavailable Thankachan, Reeba MANAGER STONE Unavailable Unavailable Thankachan, Reeba MANAGER STONE Unavailable Unavailable Thankachan, Reeba MANAGER STONE Unavailable Unavailable Thankachan, Reeba MANAGER STONE Unavailable Unavailable Thankachan, Reeba MANAGER STONE Unavailable Unavailable Thankachan, Reeba MANAGER STONE Unavailable Unavailable Thankachan, Reeba MANAGER STONE Unavailable Unavailable Thankachan, Reeba MANAGER STONE Unavailable Unavailable Re-disclosure Warning The records that [...] is protected by Article 27-F of the [facility] Public Health law. If you continue you may have access to information: Regarding HIV / AIDS; Provided by facilities licensed or operated by the [facility] Office of Mental Health; or Provided by the [facility] Office for People With Developmental Disabilities. If such information is present, then the following [facility] mandated warning applies: This information has been [...] law may result in a fine or mcc sentence or both. A general authorization for the release of medical or other information is NOT sufficient authorization for further disc losure. Encounters Encounter Providers Location Date Indications Data Source(s ) Outpatient Attender: Uriel Charles NP 12/03/2021 12:00: 00 AM [facility] Outpatient Referrer: Uriel Charles NP 06/22/2021 12:00: 00 AM [facility] Outpatient Attender: Uriel Charles NP [id number] 12:00:00 AM T - 06/04/2021 12:00:00 AM [facility] Outpatient Attender: Uriel Charles NP [id number] 12:00:00 AM [facility] Outpatient Attender: Uriel Charles NP 05/07/2021 12:00: 00 AM [facility] Outpatient Attender: Uriel Charles NP 12:00:00 AM T - 02/04/2021 02:00:16 PM [facility] Outpatient Attender: Uriel Charles NP [id number] 12:00:00 AM EDT - 11/03/2020 02:26:52 PM EDT Encounter for aftercare following other organ transplant [facility] Encounter for aftercare following other organ transplant Outpatient Attender: Uriel Charles NP [id number] 12:00:00 AM EDT - 05/05/2020 [facility]18[facility]: Uriel Charles NP 04/17/2020 12:00: 00 AM [facility] Medications Medication Brand Name Start Date Product Form Dose Route Admi nistrative Instructions Pharmacy Instructions Status Indications Reaction Description Data Source(s) Tacrolimus 1 MG Oral Capsule Tacrolimus 1 MG Oral Caps ule (PROGRAF) Tacrolimus 1 MG Oral Capsule (PROGRAF) 11/03/2020 12:00:00 AM EDT 2 mg Oral active Take 2 capsules by mouth Two Times Daily [facility] Metoprolol Tartrate 25 MG Oral Tablet Me toprolol Tartrate 25 MG Oral Tablet (LOPRESSOR) Metoprolol Tartrate 25 MG Oral Tablet (LOPRESSOR) 10/14 12:00:00 AM EDT 25 mg Oral active Take 1 tablet by mouth Two Times Daily [facility] Tacrolimus 1 MG Oral Capsule Tacrolimus 1 MG Oral Caps ule (PROGRAF) Tacrolimus 1 MG Oral Capsule (PROGRAF) 06/25/2020 12:00:00 AM EST Oral aborted Take 3 capsules by mouth every morning AND 2 capsules every evening. [facility] Prednisone 5 MG Oral Tablet predniSONE 5 MG Oral Table t (DELTASONE) predniSONE 5 MG Oral Tablet (DELTASONE) 06/25/2020 12:00:00 AM EST 5 mg Oral active Take 1 tablet by mouth daily [facility] mycophenolate mofetil 250 MG Oral Capsul e Mycophenolate Mofetil 250 MG Oral Capsule (CELLCEPT) Mycophenolate Mofetil 250 MG Oral Capsule (CELLCEPT) 06/25/2020 12:00:00 AM EST 1000 mg Oral active Take 4 capsules by mouth two times daily [facility] mycophenolate mofetil 250 MG Oral Capsul e Mycophenolate Mofetil 250 MG Oral Capsule (CELLCEPT) Mycophenolate Mofetil 250 MG Oral Capsule (CELLCEPT) 02/14/2020 12:00:00 AM EDT 1000 mg Oral active Take 4 capsules by mouth Two Times Daily [facility] Prednisone 5 MG Oral Tablet predniSONE 5 MG Oral Table t (DELTASONE) predniSONE 5 MG Oral Tablet (DELTASONE) 01/14/2020 12:00:00 AM EDT 5 mg Oral active Take 1 tablet by mouth daily [facility] Tacrolimus 1 MG Oral Capsule Tacrolimus 1 MG Oral Caps ule (PROGRAF) Tacrolimus 1 MG Oral Capsule (PROGRAF) 12/14/2019 12:00:00 AM EDT Oral active Take 3 capsules by mouth every morning AND 2 capsules every evening. [facility] Metoprolol Tartrate 25 MG Oral Tablet Me toprolol Tartrate 25 MG Oral Tablet (LOPRESSOR) Metoprolol Tartrate 25 MG Oral Tablet (LOPRESSOR) 04/2020 12:00:00 AM EST 25 mg Oral aborted Take 1 tablet by mouth Two Times Daily [facility] mycophenolate mofetil 250 MG Oral Capsul e Mycophenolate Mofetil 250 MG Oral Capsule (CELLCEPT) Mycophenolate Mofetil 250 MG Oral Capsule (CELLCEPT) 07/03/2019 12:00:00 AM EST 1000 mg Oral active Take 4 capsules by mouth Two Times Daily [facility] Tacrolimus 0.5 MG Oral Capsule Tacrolimus 0.5 MG Oral Capsule (PROGRAF) Tacrolimus 0.5 MG Oral Capsule (PROGRAF) 07/02/2019 12:00:00 AM EST 0.5 mg Oral active Take 1 capsule by mo uth Two Times Daily [facility] Tacrolimus 1 MG Oral Capsule Tacrolimus 1 MG Oral Caps ule (PROGRAF) Tacrolimus 1 MG Oral Capsule (PROGRAF) 07/02/2019 12:00:00 AM EST 2 mg Oral active Take 2 capsules by mouth Two Times Daily [facility] Prednisone 5 MG Oral Tablet predniSONE (DELTASONE) 5 M G tablet predniSONE (DELTASONE) 5 MG tablet 06/18/2019 12:00:00 AM EST 5 mg Oral active Take 1 tablet by mouth daily [facility] Insurance Providers Payer name Policy type / Coverage type Policy ID Covered constitution party ID Covered constitution party's relationship to hendricks Policy Hendricks Plan Information MEDICARE A [id number] Self [id number] MEDICARE A [id number] Self [id number] MEDICARE [id number] Rima [id number] A MEDICARE [id number] Rima [id number] A OTHER B TRANSPLANT Self TRANSPLAN T MEDICAID M [id number] Self [id number] 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 HAULER [id number] SP [id number] MEDICARE [id number] SP [id number] [id number] MEDICAID M [id number] S [id number] MEDICARE C [id number] S [id number] A [facility] TRANSPLANT [facility] O [id number] S [id number] SP [id number] [facility] HL [id number] SP [id number] MEDICARE [id number] SP [id number] T CD PHP [id number] Rima [id number] CD PHP [id number] Rima [id number] MEDICAID UNAVAILABLE UNAVAILA BLE ANS-Medicare Part B [id number] MEDICAID [id number] SP [id number] ANS-Medicare Part B [id number] MEDICARE PART A -O/P [id number] 18 [id number] MEDICARE [id number] [facility] TRANSPLANT [facility] [id number] Problems, Conditions, and Diagnoses Code Display Name Description Problem Type Effective Dates Data Source(s) Z79.899 Other manager pediatric (current) drug therapy O ther chcf (current) drug therapy Diagnosis 11/03/2020 10:29:25 AM EDT [facility] Z94.0 Kidney transplant status Kidney transplant status Diag nosis 11/03/2020 10:29:25 AM T [facility] Z48.298 Encounter for aftercare following other organ transplant Encounter for aftercare following other organ transplant Diagnosis 11/03/2020 10:29: 25 AM [facility] tr[facility]ost trppost Diagnosis 05/05/2020 10:39:19 AM ED [facility] Surgeries/Procedures No Information Results ID Date Data Source [id number] 06/03/2021 03:12:18 PM EDT [facility] Name Value Range Interpretation Code Description Data Jenny rce(s) Supporting Document(s) Progress Note [facility] MKWPKn1dWgZSSsCt17/CKKvxECVki9YcCVvyTYg6ZYjdIQMxT1XsMCO1pX0gJHJ5ACoIGhBaGdEoVTMc lbm [file] [id number] ID Date Data Source [id number] 06/05/2021 09:06:03 AM EDT [facility] Name Value Range Interpretation Code Description Data Jenny rce(s) Supporting Document(s) Tacrolimus [Mass/volume] in Blood 6.6 ng/mL [facility] Renal Transplant Target ValuesImmediate post-transplant: 10 - 15 ng/mL First 6 months: 6 - 15 ng/mL Greater than 6 months: 6 - 15 ng/mL ID Date Data Source [id number] 05/28/2021 11:26:13 AM EDT [facility] Name Value Range Interpretation Code Description Data Jenny rce(s) Supporting Document(s) Progress Note [facility] OULUSv7sGhWDOoFu93/EYCndLPKch3LnVCvpRAv1ODhjDTOsV2QnXFN5oK3pYLC5UKvNNgXdZgPjRJG0 lbm LySevZLaKzTJEmXvfFPeMdQQidPrdgsJOtHJ2LoLS9HIJrH37uZHRrYPMeJ1NzCPA4DqS+Yc8OFYRlvF OrRZ0JPzkJvIiok8s4NU7+YP+BtLHtQuYvmygpynSPbsIfj3VTS81Uhw4XQxj6aaWvDXfx/h3vzfU7UO ftpuhgFQlbFF0l87fuwDu89n60RNUj28YpM/UxigUb 6sWdx2HeIpfU95mP3mZ1RQffRkLR/VHy+uofF7toS47muujw8elKfoDb2zkpbDvtYnj5wyWKHwvDzH6m X1+gFvUW81RDNKEXpu/Z4E/2dsA+tK1TfwAtN2nsGOMfo9q4C+WKOXfJWEStpVg+abt0NIwT+iCWkQis U0Yx3xiYpjekvJ+HWpGysVv+odmiFHAnkuWXoSX2zx jGYll630iIU9Xeas5Tgh8F6J63y6+IBS1DsyqwSVZjLWarEMf7kEHjAQ3hliKYQ+Q9QQOSuuEPr2BozU UYQt5L+S9fDcDHlgBnxWfKizcqXXDtYA0b/7gzomHthxXrs+TakYMeUsUPlWqN9+MYP07xJTSgtJKbSe pRqcwzmcHJ7qCiofBK2rQqpOTh2fxMrrMpX6VOvifb u58CoXx9P+coxmRvPx/3+uzsw+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/W+ST1FTl4TlZMzt7uHfNjITTGio6wIIx4mvsOh89Gq0hsA9/lN [file] IlJWY1NoFzQD6HDt8APmF6MMG2oOUxRg1PIpC5VsTOAaCnEA9PBCr= ID Date Data Source [id number] 05/07/2021 01:17:46 PM EDT [facility] Name Value Range Interpretation Code Description Data Jenny rce(s) Supporting Document(s) Progress Note [facility] KWNKDt4eAxKJBdId97/GMLxlXQPgy2FmYYikNWn1ZRudJPUiA4QiGXN9bW0iQXP9IXrIHbMcNlEmBCCl lbm [file] ZP4QMIj= ID Date Data Source [id number] 05/09/2020 03:03:45 PM EDT [facility] Name Value Range Interpretation Code Description Data Jenny rce(s) Supporting Document(s) Progress Note [facility] HNHSHx2fKcCPHhPd12/GRGqaGHHrq2XuOYzgQOm5IZzaBPNlL1YtYJW1qT5hYRV9MWmTXcXhRfCwHWZ3 lbm RjMdmYVvCyQZGlNpqICkEeLLenXynbdQHfTT8ZwLN2NHFoT15lZUZdERTzY6BzZAAbMTW+Zh9VKTXctH DnQB7UYrtJ7V55DfcBLl2/Hu7YV6WZ28kM8VohZJG0eBDpwHtojliHS9x2oJ7ib5o13MC+GJ9e0fvGPg NVRq15oe3FZwydpLaIbBN0x7vGegf/u7iACUQ6KcU/ Lf6ZGF+dXqvf/75xQcg3oTdKs3JSqNi+g5sI2NK+z0Df/+J3uim26cn3AwYsmf79M6ymvm6hhrbf+RICARDA [file] VyZdRz2lZBJYLu8+RCfjtGWrcLbmZKYOBvfnWYUoRSpaAEIXBn5Y Procedure Social History No Information Patient Treatment Plan of Care Planned Activity Planned Date Details Description Data Source (s) Metoprolol Tartrate 25 MG Oral Tablet 11/03/2020 12:00:00 AM [facility] Tacrolimus 1 MG Oral Capsule 11/03/2020 12:00:00 AM [facility] mycophenolate mofetil 250 MG Oral Capsule 06/25/2020 12:00:00 AM [facility] Prednisone 5 MG Oral Tablet 06/25/2020 12:00:00 AM [facility] Tacrolimus 1 MG Oral Capsule 06/25/2020 12:00:00 AM [facility] mycophenolate mofetil 250 MG Oral Capsule 02/14/2020 12:00:00 AM [facility] Prednisone 5 MG Oral Tablet 01/14/2020 12:00:00 AM [facility] Tacrolimus 1 MG Oral Capsule 12/14/2019 12:00:00 AM [facility] Metoprolol Tartrate 25 MG Oral Tablet 08/23/2019 12:00:00 AM [facility] mycophenolate mofetil 250 MG Oral Capsule 07/03/2019 12:00:00 AM [facility] Tacrolimus 0.5 MG Oral Capsule 07/02/2019 12:00:00 AM [facility] Tacrolimus 1 MG Oral Capsule 07/02/2019 12:00:00 AM [facility] Prednisone 5 MG Oral Tablet 06/18/2019 12:00:00 AM [facility]
--- NOTE | 2021-06-13 10:09 | REP ---
INDICATION: sob. COMPARISON: Portable chest, 06/13/2021, 9:11 a.m.. TECHNIQUE: AP portable chest image was obtained. FINDINGS: There has been interval placement of a left thoracostomy tube with significant re-expansion of the left lung. There is a small right pneumothorax now evident. There is again noted pneumomediastinum and predominantly right-sided subcutaneous emphysema. The heart size is unchanged. There is patchy interstitial thickening bilaterally of indeterminate etiology. There are no significant pleural effusions evident. IMPRESSION: 1. Interval placement of a large bore thoracostomy tube on the left with significant re-expansion of the left lung. 2. Small right pneumothorax. 3. Again noted pneumomediastinum and right-sided subcutaneous emphysema. Pertinent findings: Left thoracostomy tube in good position with significant re-expansion of the left lung. There is a small right pneumothorax no evident. The critical information above was relayed directly by me by telephone to Chantal Clemente on 06/13/2021 at 10:04 am with readback verification. <Electronically signed by Ariel Rodriguez > 06/13/21 [id number]
[2021-06-13 10:11] LABS: INR 1.67; PARTIAL THROMBOPLASTIN TIME 38.4 SECONDS (25.9-37.0); PROTHROMBIN TIME 20.1 SECONDS (12.7-14.5)
[2021-06-13 10:17] LABS: FIBRINOGEN 1318 MG/DL (268-480)
[2021-06-13] MEDS: METOPROLOL 5 MG/5 ML VIAL IV SCH ×3 (10:26→10:45)
[2021-06-13 10:27] LABS: ABG BASE EXCESS -23.6 (-2.0-2.0); ABG HCO3 4.9 MEQ/L (22.0-26.0); ABG O2 SATURATION 98.5 % (95.0-99.0); ABG STANDARD HCO3 8.3 MEQ/L (22.0-26.0); ABG TOTAL CO2 5.5 MEQ/L (22.0-29.0)
--- NOTE | 2021-06-13 10:28 | REP ---
INDICATION: pneumo. COMPARISON: None. TECHNIQUE: Imaging protocol: Computed tomography of the chest without IV contrast. Contiguous 3 mm thick axial projection images were obtained through the chest. 2D sagittal and coronal reconstructions were performed. Radiation optimization: All CT scans at this facility use at least one of these dose optimization techniques: automated exposure control; mA and/or kV adjustment per patient size (includes targeted exams where dose is matched to clinical indication); or iterative reconstruction. FINDINGS: Lower neck: There are surgical clips at the lower pole of the right thyroid lobe consistent with parathyroidectomy. The thyroid gland is otherwise unremarkable. There is no supraclavicular lymphadenopathy. Mediastinum: There is extensive pneumomediastinum. There are no abnormal masses or lymphadenopathy. Heart/thoracic aorta: The heart is enlarged. There is no pericardial effusion. There is minimal calcific vascular disease of the thoracic aorta and coronary arteries. Upper abdomen: There is severe atrophy of the kidneys. Thoracic esophagus: Normal. Chest wall and axilla: There is extensive subcutaneous emphysema over the right chest wall and extending in the both size of the neck. There are no significant bony abnormalities of the chest. Lung parenchyma: There is diffuse ground-glass opacity of the lungs consistent with pneumonia/pulmonary edema. There are small bilateral pneumothoraces. There is a large bore thoracostomy tube on the left. There is no significant pleural effusion. IMPRESSION: 1. Small bilateral pneumothoraces. There is a large bore thoracostomy tube on the left. 2. There is pneumomediastinum and predominantly right-sided subcutaneous emphysema extending into both sides of the neck. 3. There is diffuse ground-glass opacity of the lungs consistent with pulmonary edema, less likely pneumonia. 4. Other findings as noted. Pertinent findings: Diffuse ground-glass opacity of the lungs consistent with pulmonary edema. Bilateral pleural effusions. Pneumomediastinum and subcutaneous emphysema. The critical information above was relayed directly by me by telephone to Chantal Clemente on 06/13/2021 at 10:23 am with readback verification. <Electronically signed by Ariel Rodriguez > 06/13/21 [id number]
[2021-06-13 10:29] LABS: ABG pH (ARTERIAL) 7.057 UNITS (7.350-7.450)
[2021-06-13 10:32] LABS: ALBUMIN 2.8 GM/DL (3.2-5.2); ALT/SGPT 38 U/L (12-78); BILIRUBIN,TOTAL 0.5 MG/DL (0.2-1.0); CALCIUM LEVEL 7.6 MG/DL (8.5-10.1); CARBON DIOXIDE LEVEL 11 MEQ/L (21-32); CHLORIDE LEVEL 94 MEQ/L (98-107); CK-MB VALUE MASS 1.7 NG/ML (<3.6); CPK CREATINE PHOSPHOKINASE 156 U/L (39-308); D-DIMER QUANT > 4000 ng/ml (<500); FERRITIN 7590 NG/ML (26-388); GLOMERULAR FILTRATION RATE 5.3 (>60); GLUCOSE, FASTING 208 MG/DL (70-100); LDH LACTATE DEHYDROGENASE 993 U/L (87-241); MAGNESIUM LEVEL 2.6 MG/DL (1.8-2.4); MB/CK RELATIVE INDEX 1.09 (< OR =4); POTASSIUM SERUM 3.6 MEQ/L (3.5-5.1); SODIUM LEVEL 134 MEQ/L (136-145); TOTAL PROTEIN 8.1 GM/DL (6.4-8.2); TROPONIN I 0.02 NG/ML (< 0.10)
[2021-06-13 10:33] LABS: BLOOD UREA NITROGEN 209 MG/DL (7-18)
[2021-06-13] MEDS ORDERED: METOPROLOL TART 25 MG TABLET PO ONE (10:35)
[2021-06-13 10:39] LABS: LYMPHOCYTES 7 % (16-44); MONOCYTES 5 % (0-5); NEUTROPHILS 85 % (28-66)
[2021-06-13 10:40] LABS: ANISOCYTOSIS 1+; PLATELET ESTIMATE INCREASED (NORMAL)
[2021-06-13] MEDS ORDERED: SODIUM BICARBONATE 8.4% INJ 50 ML SYRINGE IV STA (10:43)
[2021-06-13] MEDS ORDERED: MORPHINE 2 MG/ML 1ML VIAL (J2270) IV PRN (10:50)
[2021-06-13] MEDS ORDERED: ONDANSETRON 4MG/2ML VIAL IV ONE (10:50)
--- NOTE | 2021-06-13 11:40 | REP ---
INDICATION: renal failure, renal transplant. COMPARISON: None. TECHNIQUE: Imaging protocol: Computed tomography of the abdomen and pelvis without IV contrast. Contiguous 3 mm thick axial projection images were obtained through the abdomen and pelvis. 2D sagittal and coronal reconstructions were performed. Radiation optimization: All CT scans at this facility use at least one of these dose optimization techniques: automated exposure control; mA and/or kV adjustment per patient size (includes targeted exams where dose is matched to clinical indication); or iterative reconstruction. FINDINGS: Heart and lung bases: Please see CT chest report, same day. Liver: Normal unenhanced appearance. Gallbladder: Normal unenhanced appearance. Spleen: Normal unenhanced appearance. Pancreas: Normal unenhanced appearance. Adrenal glands: Normal unenhanced appearance. Kidneys/bladder: The nulato kidneys are severely atrophic. There is a right pelvic renal allograft which has a normal unenhanced appearance. The urinary bladder has a normal unenhanced appearance. Pelvic structures: The prostate gland is normal in size. The seminal vesicles have a normal unenhanced appearance. There is no free fluid the pelvis. There is no pelvic or inguinal lymphadenopathy. GI tract: There is a normal appendix demonstrated. The gastrointestinal tract is otherwise unremarkable. Abdominal wall and mesentery: There is a spigelian hernia on the right, probably related to the renal allograft placement. The abdominal wall defect measures 4.3 cm in diameter and the hernia sac, which contains normal fat, measures 7.9 cm in diameter. There is no mesenteric or retroperitoneal lymphadenopathy. Abdominal aorta and vascular structures: The abdominal aorta has a normal unenhanced appearance. Bony structures: There is sclerosis of the vertebral body endplates, consistent with renal osteodystrophy. The SI joints and hips are normal. There has been screw and plate fixation of diastasis of the pubic symphysis. IMPRESSION: 1. Severe bilateral renal atrophy with a normal appearing, right pelvic renal allograft. 2. Renal osteodystrophy. 3. Right-sided spigelian hernia, as described. 4. Other findings as noted. <Electronically signed by Ariel Rodriguez > 06/13/21 [id number]
--- OUTSIDE RECORDS SUMMARY | 2021-06-13 11:50 | CCD ---
Author Author [facility] Organization [facility] Address Unknown Phone Unavailable Care Team Providers Care Production Team Advisor Name Role Phone Thankachan, Reeba COURTESY DRIVER Unavailable Unavailable Thankachan, Reeba COURTESY DRIVER Unavailable Unavailable Thankachan, Reeba COURTESY DRIVER Unavailable Unavailable Thankachan, Reeba COURTESY DRIVER Unavailable Unavailable Thankachan, Reeba COURTESY DRIVER Unavailable Unavailable Thankachan, Reeba COURTESY DRIVER Unavailable Unavailable Thankachan, Reeba COURTESY DRIVER Unavailable Unavailable Thankachan, Reeba COURTESY DRIVER Unavailable Unavailable Thankachan, Reeba COURTESY DRIVER Unavailable Unavailable Thankachan, Reeba COURTESY DRIVER Unavailable Unavailable Thankachan, Reeba COURTESY DRIVER Unavailable Unavailable Thankachan, Reeba COURTESY DRIVER Unavailable Unavailable Thankachan, Reeba COURTESY DRIVER Unavailable Unavailable Thankachan, Reeba COURTESY DRIVER Unavailable Unavailable Thankachan, Reeba COURTESY DRIVER Unavailable Unavailable Thankachan, Reeba COURTESY DRIVER Unavailable Unavailable Thankachan, Reeba COURTESY DRIVER Unavailable Unavailable Thankachan, Reeba COURTESY DRIVER Unavailable Unavailable Thankachan, Reeba COURTESY DRIVER Unavailable Unavailable Thankachan, Reeba COURTESY DRIVER Unavailable Unavailable Thankachan, Reeba COURTESY DRIVER Unavailable Unavailable Thankachan, Reeba COURTESY DRIVER Unavailable Unavailable Thankachan, Reeba COURTESY DRIVER Unavailable Unavailable Thankachan, Reeba COURTESY DRIVER Unavailable Unavailable Thankachan, Reeba COURTESY DRIVER Unavailable Unavailable Thankachan, Reeba COURTESY DRIVER Unavailable Unavailable Thankachan, Reeba COURTESY DRIVER Unavailable Unavailable Thankachan, Reeba COURTESY DRIVER Unavailable Unavailable Thankachan, Reeba COURTESY DRIVER Unavailable Unavailable Thankachan, Reeba COURTESY DRIVER Unavailable Unavailable Thankachan, Reeba COURTESY DRIVER Unavailable Unavailable Thankachan, Reeba COURTESY DRIVER Unavailable Unavailable Thankachan, Reeba COURTESY DRIVER Unavailable Unavailable Thankachan, Reeba COURTESY DRIVER Unavailable Unavailable Thankachan, Reeba COURTESY DRIVER Unavailable Unavailable Thankachan, Reeba COURTESY DRIVER Unavailable Unavailable Thankachan, Reeba COURTESY DRIVER Unavailable Unavailable Thankachan, Reeba COURTESY DRIVER Unavailable Unavailable Thankachan, Reeba COURTESY DRIVER Unavailable Unavailable Thankachan, Reeba COURTESY DRIVER Unavailable Unavailable Thankachan, Reeba COURTESY DRIVER Unavailable Unavailable Thankachan, Reeba COURTESY DRIVER Unavailable Unavailable Thankachan, Reeba COURTESY DRIVER Unavailable Unavailable Thankachan, Reeba COURTESY DRIVER Unavailable Unavailable Thankachan, Reeba COURTESY DRIVER Unavailable Unavailable Thankachan, Reeba COURTESY DRIVER Unavailable Unavailable Thankachan, Reeba COURTESY DRIVER Unavailable Unavailable Thankachan, Reeba COURTESY DRIVER Unavailable Unavailable Re-disclosure Warning The records that [...] is protected by Article 27-F of the [facility] Public Health law. If you continue you may have access to information: Regarding HIV / AIDS; Provided by facilities licensed or operated by the [facility] Office of Mental Health; or Provided by the [facility] Office for People With Developmental Disabilities. If such information is present, then the following [facility] mandated warning applies: This information [...] law may result in a fine or snf sentence or both. A general authorization for the release of medical or other information is NOT sufficient authorization for further disc losure. Encounters Encounter Providers Location Date Indications Data Source(s ) Outpatient Attender: Uriel Charles NP 12/03/2021 12:00: 00 AM [facility] Outpatient Referrer: Uriel Charles NP 06/22/2021 12:00: 00 AM [facility] Outpatient Attender: Uriel Charles NP [id number] 12:00:00 AM T - 06/04/2021 12:00:00 AM [facility] Outpatient Attender: Uriel Charles NP [id number] 12:00:00 AM [facility] Outpatient Attender: Uriel Charles NP 05/07/2021 12:00: 00 AM [facility] Outpatient Attender: Uriel Charles NP 12:00:00 AM T - 02/04/2021 02:00:16 PM [facility] Outpatient Attender: Uriel Charles NP [id number] 12:00:00 AM EDT - 11/03/2020 02:26:52 PM EDT Encounter for aftercare following other organ transplant [facility] Encounter for aftercare following other organ transplant Outpatient Attender: Uriel Charles NP [id number] 12:00:00 AM EDT - 05/05/2020 03[facility]18[facility]: Uriel Charles NP 04/17/2020 12:00: 00 AM [facility] Medications Medication Brand Name Start Date Product Form Dose Route Admi nistrative Instructions Pharmacy Instructions Status Indications Reaction Description Data Source(s) Tacrolimus 1 MG Oral Capsule Tacrolimus 1 MG Oral Caps ule (PROGRAF) Tacrolimus 1 MG Oral Capsule (PROGRAF) 11/03/2020 12:00:00 AM EDT 2 mg Oral active Take 2 capsules by mouth Two Times Daily [facility] Metoprolol Tartrate 25 MG Oral Tablet Me toprolol Tartrate 25 MG Oral Tablet (LOPRESSOR) Metoprolol Tartrate 25 MG Oral Tablet (LOPRESSOR) 10/14 12:00:00 AM EDT 25 mg Oral active Take 1 tablet by mouth Two Times Daily [facility] Tacrolimus 1 MG Oral Capsule Tacrolimus 1 MG Oral Caps ule (PROGRAF) Tacrolimus 1 MG Oral Capsule (PROGRAF) 06/25/2020 12:00:00 AM EST Oral aborted Take 3 capsules by mouth every morning AND 2 capsules every evening. [facility] Prednisone 5 MG Oral Tablet predniSONE 5 MG Oral Table t (DELTASONE) predniSONE 5 MG Oral Tablet (DELTASONE) 06/25/2020 12:00:00 AM EST 5 mg Oral active Take 1 tablet by mouth daily [facility] mycophenolate mofetil 250 MG Oral Capsul e Mycophenolate Mofetil 250 MG Oral Capsule (CELLCEPT) Mycophenolate Mofetil 250 MG Oral Capsule (CELLCEPT) 06/25/2020 12:00:00 AM EST 1000 mg Oral active Take 4 capsules by mouth two times daily [facility] mycophenolate mofetil 250 MG Oral Capsul e Mycophenolate Mofetil 250 MG Oral Capsule (CELLCEPT) Mycophenolate Mofetil 250 MG Oral Capsule (CELLCEPT) 02/14/2020 12:00:00 AM EDT 1000 mg Oral active Take 4 capsules by mouth Two Times Daily [facility] Prednisone 5 MG Oral Tablet predniSONE 5 MG Oral Table t (DELTASONE) predniSONE 5 MG Oral Tablet (DELTASONE) 01/14/2020 12:00:00 AM EDT 5 mg Oral active Take 1 tablet by mouth daily [facility] Tacrolimus 1 MG Oral Capsule Tacrolimus 1 MG Oral Caps ule (PROGRAF) Tacrolimus 1 MG Oral Capsule (PROGRAF) 12/14/2019 12:00:00 AM EDT Oral active Take 3 capsules by mouth every morning AND 2 capsules every evening. [facility] Metoprolol Tartrate 25 MG Oral Tablet Me toprolol Tartrate 25 MG Oral Tablet (LOPRESSOR) Metoprolol Tartrate 25 MG Oral Tablet (LOPRESSOR) 04/2020 12:00:00 AM EST 25 mg Oral aborted Take 1 tablet by mouth Two Times Daily [facility] mycophenolate mofetil 250 MG Oral Capsul e Mycophenolate Mofetil 250 MG Oral Capsule (CELLCEPT) Mycophenolate Mofetil 250 MG Oral Capsule (CELLCEPT) 07/03/2019 12:00:00 AM EST 1000 mg Oral active Take 4 capsules by mouth Two Times Daily [facility] Tacrolimus 0.5 MG Oral Capsule Tacrolimus 0.5 MG Oral Capsule (PROGRAF) Tacrolimus 0.5 MG Oral Capsule (PROGRAF) 07/02/2019 12:00:00 AM EST 0.5 mg Oral active Take 1 capsule by mo uth Two Times Daily [facility] Tacrolimus 1 MG Oral Capsule Tacrolimus 1 MG Oral Caps ule (PROGRAF) Tacrolimus 1 MG Oral Capsule (PROGRAF) 07/02/2019 12:00:00 AM EST 2 mg Oral active Take 2 capsules by mouth Two Times Daily [facility] Prednisone 5 MG Oral Tablet predniSONE (DELTASONE) 5 M G tablet predniSONE (DELTASONE) 5 MG tablet 06/18/2019 12:00:00 AM EST 5 mg Oral active Take 1 tablet by mouth daily [facility] Insurance Providers Payer name Policy type / Coverage type Policy ID Covered republican ID Covered republican's relationship to hendricks Policy Hendricks Plan Information MEDICARE A [id number] Self [id number] MEDICARE A [id number] Self [id number] MEDICARE [id number] Rima [id number] A MEDICARE [id number] Rima [id number] A OTHER B TRANSPLANT Self TRANSPLAN T MEDICAID M [id number] Self 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 [id number] SP [id number] MEDICARE [id number] SP [id number] MEDICAID M [id number] S [id number] MEDICARE C [id number] S [id number] [facility] O [id number] S [id number] SP [id number] [facility] [id number] SP [id number] MEDICARE [id number] SP [id number] T CD PHP [id number] Rima [id number] CD PHP [id number] Rima [id number] MEDICAID UNAVAILABLE UNAVAILA BLE ANS-Medicare Part B [id number] MEDICAID [id number] SP [id number] ANS-Medicare Part B [id number] MEDICARE PART A -O/P [id number] MEDICARE [id number] [facility] TRANSPLANT [facility] [id number] Problems, Conditions, and Diagnoses Code Display Name Description Problem Type Effective Dates Data Source(s) Z79.899 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 watermelon inspector (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) drug therapy O ther correction (current) drug therapy Diagnosis 11/03/2020 10:29:25 AM EDT [facility] Z94.0 Kidney transplant status Kidney transplant status Diag nosis 11/03/2020 10:29:25 AM T [facility] Z48.298 Encounter for aftercare following other organ transplant Encounter for aftercare following other organ transplant Diagnosis 11/03/2020 10:29: 25 AM [facility] tr[facility]ost Diagnosis 05/05/2020 10:39:19 AM ED [facility] Surgeries/Procedures No Information Results ID Date Data Source [id number] 06/03/2021 03:12:18 PM EDT [facility] Name Value Range Interpretation Code Description Data Jenny rce(s) Supporting Document(s) Progress Note [facility] [id number]/[id number]YPcA4VlEAD9eG4qUWH3RPgZSdOiPhSwEQKw lbm [file] [id number] ID Date Data Source [id number] 06/05/2021 09:06:03 AM EDT [facility] Name Value Range Interpretation Code Description Data Jenny rce(s) Supporting Document(s) Tacrolimus [Mass/volume] in Blood 6.6 ng/mL [facility] Renal Transplant Target ValuesImmediate post-transplant: 10 - 15 ng/mL First 6 months: 6 - 15 ng/mL Greater than 6 months: 6 - 15 ng/mL ID Date Data Source [id number] 05/28/2021 11:26:13 AM EDT [facility] Name Value Range Interpretation Code Description Data Jenny rce(s) Supporting Document(s) Progress Note [facility] VJNUUy6iBgZMTcIu64/LYThmVLNnk7ZgUSecCAv6ERjnTCXwB6LhMGQ8zK7cPGH7BUeKNjMfLmQyHAQ6 lbm BaOqkGAkXhMMKwUffPTpXyOPmxXymsfZHpJN6KiPI5ZSZqO86eRSDeGFQhQ3EjOJJ7VpP+Fv6SVRFftK KdGJ5YFlkAoAocl0x9JX5+YP+MfDAxLvBilsgprmHIttLsp5SYB11Vtx7OQuz4soNdUMma/p5umlJ4UI xpdcmnZEqlZP6q57smjZy12z28GJAl92OqP/UxigUb 7vFga0DqZhgN74pO0oK1LUroBgET/VHy+ubdA7lnK41ymtxy8bcKmlQz6kvtiVtuVzo7yyBCSsiWgN4c X1+wSqVL38RDMSXVzl/Z4E/2dsA+cV2NrcWfO2szYQDde0f3G+WKOXfJWEStpVg+sih1XYtI+iCWkQis G6Rv5ycBmchrbK+HWpGysVv+zbtcNCFtgvPEtEW9ni vMPlw154hKH4Tllr6Llc7L8R90a1+NBD2WlfrpNNLxGMzmDRn0zVLkIF9oolJKM+A2JAPPnpIRn9GgiS UYQt5L+B1zZoARiqXqcMtDsdmqLIPbCT3d/7gzomHthxXrs+TakYMeUsUPlWqN9+ZWX17vXHVagBLvWf hShmqcokXD3sAvvgMM8yLllADp7rhMmzSpT8EDduud b00EwAg5V+coxmRvPx/3+uzsw+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/W+WA0ZXi1VtMKrc9gBqOwBYAAzd7fYWg1nesMs84Wr0jrE6/lN [file] RuAEJ9KkPsGQ8VSt8NPzO3YWB2uZFtJi4WPrB4KnGLFkIeJW1KCZm= ID Date Data Source [id number] 05/07/2021 01:17:46 PM EDT [facility] Name Value Range Interpretation Code Description Data Jenny rce(s) Supporting Document(s) Progress Note [facility] [id number]/GENwySXNej6StOTyePJk6TUbsYDWdT3UeVCB8jR7lMXT1JNyRPsKvRxGcECDo lbm [file] [id number]= ID Date Data Source [id number] 05/09/2020 03:03:45 PM EDT [facility] Name Value Range Interpretation Code Description Data Jenny rce(s) Supporting Document(s) Progress Note [facility] UAQXCg1sOaTFQbMi28/VSFgaNWKre2TtPUvzSWw9FItzWSGqT6DmEMN4nA0tLTL1JYyAArWrLnGiXGM0 lbm EeMbsWJfLqLLHlWlxTGcIkPQgnRyzqyJWyBT7UuOG2JHQjW20aYGNzTTSrJ5RsBQQqZAR+Kd5MOLAumN VbTK6NBofM5J08DwyATh8/Mf6DB6YW69gR8YleNPJ4hGXwmGvfictQX7b2uZ8kn4f26VO+VU4o3saTVk TNMr01ma5JSogkzUpTsXZ2l4iUvft/j0oSKAF8OiT/ Lf6ZGF+dXqvf/50jLru5aLtWv1SQfDb+g5kR2XG+z0Df/+R4esq70mg4KbDjtq54B6xjas1agvzy+RICARDA [file] BkPxKs5cSMOLXt4+FSbejENwvTgoKVDNAjbtNVQoUZvrESUMBl9Y Procedure Social History No Information Patient Treatment Plan of Care Planned Activity Planned Date Details Description Data Source (s) Metoprolol Tartrate 25 MG Oral Tablet 11/03/2020 12:00:00 AM [facility] Tacrolimus 1 MG Oral Capsule 11/03/2020 12:00:00 AM [facility] mycophenolate mofetil 250 MG Oral Capsule 06/25/2020 12:00:00 AM [facility] Prednisone 5 MG Oral Tablet 06/25/2020 12:00:00 AM [facility] Tacrolimus 1 MG Oral Capsule 06/25/2020 12:00:00 AM [facility] mycophenolate mofetil 250 MG Oral Capsule 02/14/2020 12:00:00 AM [facility] Prednisone 5 MG Oral Tablet 01/14/2020 12:00:00 AM [facility] Tacrolimus 1 MG Oral Capsule 12/14/2019 12:00:00 AM [facility] Metoprolol Tartrate 25 MG Oral Tablet 08/23/2019 12:00:00 AM [facility] mycophenolate mofetil 250 MG Oral Capsule 07/03/2019 12:00:00 AM [facility] Tacrolimus 0.5 MG Oral Capsule 07/02/2019 12:00:00 AM [facility] Tacrolimus 1 MG Oral Capsule 07/02/2019 12:00:00 AM [facility] Prednisone 5 MG Oral Tablet 06/18/2019 12:00:00 AM [facility]
[2021-06-13] MEDS: ALBUTEROL 90 MCG/ACT 8GM HFA INHALER INH SCH ×3 (12:00→20:01)
[2021-06-13] MEDS ORDERED: METOPROLOL TART 25 MG TABLET PO SCH (12:00)
[2021-06-13] MEDS ORDERED: ALBU8.5H INH (12:21)
[2021-06-13] MEDS ORDERED: AZIT-12 PO (12:21)
[2021-06-13] MEDS ORDERED: TACR1CAP3 PO (12:21)
--- NOTE | 2021-06-13 12:21 | RO ---
OPERATIVE NOTE DATE OF OPERATION: 06/13/2021 PREOPERATIVE DIAGNOSIS: Left pneumothorax, acute respiratory failure. POSTOPERATIVE DIAGNOSIS: Left pneumothorax, acute respiratory failure. PROCEDURE: Insertion of left anterior-superior chest tube. SURGEON: Dr. Sumit Soria DESCRIPTION OF PROCEDURE: Under satisfactory moderate sedation achieved with 4 mg of Versed, patient was prepped and draped in the usual sterile fashion. The 2nd rib was located, and the skin, subcutaneous tissue, and pleura were infiltrated with 1% lidocaine. Incision was made, and a tunnel was created in the chest without difficulty. A #20 chest tube was then placed and placed to suction with the production of air. Chest tube was secured to the chest wall with #2 Tevdek suture. Patient tolerated the procedure well, and a chest x-ray and a CT are pending.
[2021-06-13] MEDS ORDERED: HOME MED LIST COMPLETE! XX SCH (12:25)
[2021-06-13] MEDS: dexameTHASONE 4 MG/ML 1ML VIAL (J1100 PER 1MG) IV SCH (13:33)
[2021-06-13] MEDS ORDERED: HEPARIN SOD (PORCINE) 5000UNITS/ML 1ML VIAL/SYRINGE IV STA (13:40)
[2021-06-13] MEDS ORDERED: HEPARIN SOD (PORCINE) 5000UNITS/ML 1ML VIAL/SYRINGE IV PRN (14:00)
[2021-06-13 14:13] LABS: BASO # 0.1 10^3/uL (0.0-0.2); BASO % 0.2 % (0.0-1.0); EOS # 0.1 10^3/uL (0.0-0.5); EOS % 0.3 % (0.0-3.0); HEMATOCRIT 43.8 % (42.0-52.0); HEMOGLOBIN 15.1 g/dl (13.5-17.5); LYMPH # 0.4 10^3/uL (1.5-5.0); LYMPH % 1.6 % (24.0-44.0); MEAN CORPUSCULAR HEMOGLOBIN 27.4 pg (27.0-33.0); MEAN CORPUSCULAR HGB CONC 34.5 g/dl (32.0-36.5); MEAN CORPUSCULAR VOLUME 79.5 fl (80.0-96.0); MONO # 1.1 10^3/uL (0.0-0.8); MONO % 4.5 % (2.0-8.0); NEUTROPHILS # 21.3 10^3/uL (1.5-8.5); NEUTROPHILS % 91.6 % (36.0-66.0); PLATELET COUNT, AUTOMATED 441 10^3/uL (150-450); RED BLOOD COUNT 5.51 10^6/uL (4.30-6.10); WHITE BLOOD COUNT 23.2 10^3/uL (4.0-10.0)
[2021-06-13 14:17] LABS: ABG HCO3 9.3 MEQ/L (22.0-26.0); ABG PARTIAL PRESSURE CO2 22.4 mmHg (35.0-45.0); ABG PARTIAL PRESSURE O2 86.1 mmHg (75.0-100.0); ABG STANDARD HCO3 12.6 MEQ/L (22.0-26.0)
[2021-06-13 14:18] LABS: ABG pH (ARTERIAL) 7.235 UNITS (7.350-7.450)
--- NOTE | 2021-06-13 14:24 | HPEPDOC ---
[facility] Medical History & Physical Date of Admission Jun 13, 2021 Date of Service: Jun 13, 2021 Primary Care Physician: Tahir Ambriz Attending Physician: NICOLETTE LOBO MD History and Physical CHIEF COMPLAINT: Shortness of breath HISTORY OF PRESENT ILLNESS: Dewey Barajas is a 40-year-old male who presented to the emergency department today with complaints of 3 to 4 days of worsening shortness of breath. He states that when this started he thought he had bronchitis. He states he went to urgent care who prescribed him an antibiotic (azithromycin) for bronchitis. He denies being COVID-19 tested at that time. He states that over this. He is also developed a cough which is productive of a yellow sputum. He denies coughing up any blood. He denies any episodes of chest pain or palpitations. He reports diarrhea over these past few days with loose stool. He denies any blood in his stool that he has noticed. He denies experiencing nausea, vomiting, or abdominal pain. Patient states he was not vaccinated for COVID-19 In the emergency department, the patient was found to be in acute hypoxic respiratory failure as well as atrial fibrillation with RVR. The patient did have 1 cardioversion during transport by EMS at 100 kJ per ED staff but persisted in A. fib with RVR despite this. In the ED, he was started on IV and oral metoprolol for rate control. Chest x-ray showed a left-sided pneumothorax. Dr. Soria of cardiothoracic surgery was called and placed a left-sided chest tube. Subsequent CT scan of the chest showed small bilateral pneumothoraces as well as bilateral pleural effusions and concern for pulmonary edema. COVID-19 test was positive. His lab work also revealed leukocytosis, lactic acidosis, and elevated inflammatory markers, all consistent with acute infection. Additionally, the patient was found to be in acute renal failure. Dr. Alvarenga was called and recommended hemodialysis. Hospitalist team was called for admission. 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 No alcohol in the past 4 to 5 months. Reports occasional alcohol prior to this 1-2 drinks per week. Denies any current or history of illicit substance use. Lives at home alone with 2 dogs. FAMILY HISTORY: Father passed of lung cancer. Otherwise patient is unaware of family medical h istory. ALLERGIES: Please see below. REVIEW OF SYSTEMS: CONSTITUTIONAL: Denies fevers, chills, night sweats, fatigue, unexpected change in weight. HEENT: Denies change in vision, change in hearing. CARDIOVASCULAR: Denies chest pain, palpitations, lightheadedness. RESPIRATORY: As per HPI GASTROINTESTINAL: Denies nausea, vomiting, abdominal pain, blood in stool. GENITOURINARY: Denies dysuria, urinary frequency, urinary urgency. SKIN: Denies rash, lesions. MUSCULOSKELETAL: Denies new joint pain or muscle aches. NEUROLOGICAL: Denies headache, dizziness, weakness. LYMPHATICS: Denies any swollen lymph nodes. HEMATOLOGIC: Denies easy bleeding or bruising HOME MEDICATIONS: Please see below. PHYSICAL EXAMINATION: VITAL SIGNS: See below GENERAL: Patient is lying in ED stretcher on BiPAP, alert, appears in mild respiratory distress without accessory muscle usage. HEENT: Normocephalic, atraumatic, PERRLA, EOMI, moist mucous membranes NECK: Supple, trachea midline, no lymphadenopathy CARDIOVASCULAR: Tachycardic with irregularly irregular rhythm, normal S1 and S2. RESPIRATORY: Patient is tachypneic without accessory muscle usage. Breath sounds are diminished bilaterally. ABDOMEN: Tender to deep palpation throughout. Soft, nondistended, bowel sounds present. Mass present in the right lower lateral quadrant which patient notes is his kidney transplant EXTREMITIES: No cyanosis or edema. Pulses 2+/4 in bilateral upper and lower extremities SKIN: [place], warm, dry NEUROLOGIC: Alert and oriented x3 to person, place and time. No focal deficits appreciated PSYCHIATRIC: Mood and affect appropriate LABORATORY DATA: See below. IMAGING: (Impressions per radiologist report) CXR 1. Moderate left pneumothorax without evidence of tension. 2. There is pneumomediastinum and predominantly right-sided subcutaneous emphysema. CXR 1. Interval placement of a large bore thoracostomy tube on the left with significant re-expansion of the left lung. 2. Small right pneumothorax. 3. Again noted pneumomediastinum and right-sided subcutaneous emphysema. CT chest 1. Small bilateral pneumothoraces. There is a large bore thoracostomy tube on the left. 2. There is pneumomediastinum and predominantly right-sided subcutaneous emphysema extending into both sides of the neck. 3. There is diffuse ground-glass opacity of the lungs consistent with pulmonary edema, less likely pneumonia. CT abdomen and pelvis 1. Severe bilateral renal atrophy with a normal appearing, right pelvic re nal allograft. 2. Renal osteodystrophy. 3. Right-sided spigelian hernia, as described. MICROBIOLOGY: Please see below. ASSESSMENT: 40-year-old male with past medical history of end-stage renal disease secondary to hypertension status post allograft renal transplant, immunosuppression secondary to transplant medications, hyperparathyroidism status post parathyroidectomy, hypertension, who presented to the emergency room due to 4 days of worsening shortness of breath and productive cough, found to have COVID- 19 pneumonia, left-sided pneumothorax now status post chest tube placement, bilateral pleural effusions and pulmonary edema, atrial fibrillation with RVR, admitted to the hospital for evaluation and further management. PLAN: #Acute hypoxic respiratory failure Multifactorial, with contributing factors including COVID-19 pneumonia, possible superimposed bacterial pneumonia, left-sided pneumothorax status post chest tube placement, small right-sided pneumothorax, pneumomediastinum with subcutaneous emphysema, bilateral pleural effusions Pulmonology consulted, appreciate recommendations. Patient currently on BiPAP which was started in the ED, follow-up ABG pending #COVID-19 pneumonia with possible superimposed bacterial pneumonia Patient started on Remdesivir and Decadron. Avoid baricitinib at this time due to renal failure Additional supportive care with awake pronation, incentive spirometer and Acapella. Inhaled albuterol treatments ordered. Antibiotic coverage for suspected superimposed bacterial pneumonia with ceftriaxone and doxycycline day #1 Procalcitonin remains pending, will consider de-escalation of antibiotics if not elevated #Sepsis secondary to COVID-19 pneumonia versus superimposed bacterial pneumonia Meets 3-4 SIRS criteria on admission with leukocytosis, tachycardia, and hypoxia. Lactic acidosis, repeat lactic acid level pending Procalcitonin pending Antibiotic coverage for suspected superimposed bacterial pneumonia as above In the setting of acute infection, hold home immunosuppressive agents for renal transplant #Left-sided pneumothorax status post chest tube placement and small right sided pneumothorax Suspect pneumothorax may be related to acute pneumonia with persistent cough. No other clear etiology. No known underlying pulmonary disease. Dr. Soria placed chest tube in the ED and is consulted for chest tube m anagement, appreciate recommendations #Pneumomediastinum with subcutaneous emphysema Unclear etiology, appreciate pulmonary recommendations #New onset atrial fibrillation with rapid ventricular response Status post cardioversion at 100 kJ in transfer by EMS, unsuccessful Status post IV metoprolol, continue with oral metoprolol tartrate 25 mg every 6 hours for rate control Anticoagulation with heparin drip for now given the patient's poor renal function Echocardiogram once patient is better rate controlled #Acute renal failure with uremia Nephrology consulted, appreciate recommendations Plan is for dialysis today per nephrology. Unclear etiology. Ordered UA and urine electrolytes to analysis if patient is able to produce urine. #Anion gap metabolic acidosis, compensated by respiratory alkalosis Etiology likely due to uremia (BUN elevated at 209) and lactic acidosis (lactic acid elevated at 4.9) Status post 1 dose sodium bicarbonate 50 MEQ in the ED Plan for uremia as above is dialysis per nephrology Plan for lactic acidosis as above is treatment of sepsis and acute infection #History of allopathic renal transplant Hold home medications including tacrolimus and mycophenolate in the setting of acute infection Hold home prednisone as patient is on a Decadron for treatment as stated above #Hypertension We will avoid antihypertensives other than as discussed above in the setting of acute sepsis as we monitor for hypotension As patient's condition improves, consider starting antihypertensive agent if indicated by elevated blood pressures. #History of hyperparathyroidism Status post parathyroidectomy DVT prophylaxis: On heparin drip as noted above for full anticoagulation CODE STATUS: Full code Disposition: Patient is admitted inpatient to ICU. Attending Attestation: I performed a history and physical examination of the patient and discussed his management with the resident. I reviewed the resident's note and agree with the documented findings and plan of care Discussed with cardiothoracic surgery and pulmonology. Discussed with nephrology - hold tacrolimus and cellcept for now. Poor prognosis. Vital Signs Vital Signs Date Time Temp Pulse Resp B/P (MAP) Pulse Ox O2 Delivery O2 Flow Rate FiO2 06/13/21 11:46 128 38 95 06/13/21 11:40 124/73 (90) 06/13/21 11:24 NIPPV (BIPAP/CPAP) 06/13/21 10:20 70 06/13/21 09:54 15.0 06/13/21 09:27 97.9 Laboratory Data Labs 24H Laboratory Tests 2 06/13/21 09:22: POC Glucose (Misc Panel) 205H, POC Sodium (Misc Panel) 135L, POC Potassium (Misc Panel) 3.0L, POC Chloride (Misc Panel) 100, POC Total CO2 (Misc Panel) 11.0L, POC Blood Urea Nitrogen (Misc Panel > 140H, POC Ionized Calcium (Misc Panel) 3.4*L, POC Creatinine (Misc Panel) 11.9H, POC Hematocrit (Misc Panel) 49.0 06/13/21 09:32: Neutrophils (%) (Auto) , Nucleated Red Blood Cells % (auto) 0.0, Neutrophils 85H, Band Neutrophils 3, Lymphocytes (Manual) 7L, Monocytes (Manual) 5, Anisocytosis 1+, Platelet Estimate INCREASED, Prothrombin Time 20.1H, Prothromb Time International Ratio 1.67, Activated Partial Thromboplast Time 38.4, Fibrinogen 1318H, D-Dimer, Quantitative > 4000H, Anion Gap 29H, Glomerular Filtration Rate 5.3L, Lactic Acid Level 4.9*H, Calcium Level 7.6L, Magnesium Level 2.6H, Ferritin 7590H, Total Bilirubin 0.5, Aspartate Amino Transf (AST/SGOT) 32, Alanine Aminotransferase (ALT/SGPT) 38, Alkaline Phosphatase 92, Lactate Dehydrogenase 993H, Total Creatine Kinase 156, Creatine Kinase MB 1.7, Creatine Kinase MB Relative Index 1.09, Troponin I 0.02, C-Reactive Protein, Quantitative 27.50H, Total Protein 8.1, Albumin 2.8L, Albumin/Globulin Ratio 0.5 06/13/21 09:37: Blood Gas Bicarbonate Standard 8.3L, Arterial Blood pH 7.057*L, Arterial Blood Partial Pressure CO2 18.0*L, Arterial Blood Partial Pressure O2 168.0H, Arterial Blood Total CO2 5.5L, Arterial Blood HCO3 4.9L, Arterial Blood Base Excess - 23.6L, Arterial Blood Oxygen Saturation 98.5 CBC/BMP Laboratory Tests 06/13/21 09:32 Microbiology Microbiology 06/13/21 Respiratory Virus Panel (PCR) ([facility]) - Final, Complete SARS-CoV-2 (COVID 19) 06/13/21 Blood Culture, Received Pending Home Medications Scheduled Aspirin (Aspirin EC) 81 Mg Tab, 81 MG PO DAILY Azithromycin (Azithromycin) 250 Mg Tablet, 250 MG PO DAILY Metoprolol Tartrate (Metoprolol Tartrate) 25 Mg Tab, 25 MG PO BID Mycophenolate Mofetil (Mycophenolate Mofetil) 250 Mg Cap, 500 MG PO BID Prednisone (Prednisone) 5 Mg Tab, 5 MG PO DAILY Tacrolimus (Tacrolimus) 1 Mg Cap, 3 MG PO DAILY QAM Tacrolimus (Tacrolimus) 1 Mg Capsule, 2 MG PO QHS Scheduled PRN Albuterol Sulfate (Albuterol Sulfate Hfa) 8.5 Gm Hfa.aer.ad, 2 PUFF INH Q4H PRN for SOB/WHEEZING Allergies Coded Allergies: No Known Drug Allergies (Verified Allergy, Unknown, 06/13/21) MYKEL CARO D.O. Jun 13, 2021 11:55 NICOLETTE LOBO MD Jun 14, 2021 11:50
--- NOTE | 2021-06-13 14:34 | CR.PDOC ---
General Date of Consultation: Jun 13, 2021 Consultation REASON FOR CRITICAL CARE CONSULTATION/ELIEZER COMPLAINT: Respiratory failure HISTORY OF PRESENT ILLNESS: 40-year-old male with past medical history of end-stage renal disease status post renal transplant 6 years ago and is currently on immunosuppressive medications, hypertension who presents to the ED for worsening shortness of breath over 3 days. He also says for the past 2 to 3 weeks he has not had much appetite and he has been anorexic. The last time he had dialysis was many years ago. He presented to the ER via EMS. EMS found that he had A. fib RVR and per the ER records he underwent synchronized cardioversion with 100 J. On arrival to the ED he was in acute hypoxic respiratory failure and he was was found to be Covid positive. He was also found to have severe metabolic acidosis with respiratory compensation and left lung pneumothorax with pneumomediastinum. Thoracic surgery was called and he place an anterior chest tube. Patient is seen and examined and he is currently on BiPAP 12/6 at 70%. PAST MEDICAL/SURGICAL HISTORY: ESRD status post renal transplant approximately 6 years ago on CellCept, tacrolimus, prednisone 5 mg daily. Hypertension. FAMILY HISTORY: No significant cardiopulmonary disease SOCIAL HISTORY: Never smoker, occasional alcohol no illicit drug use. ALLERGIES: Please see below. HOME MEDICATIONS: Please see below. REVIEW OF SYSTEMS: CONSTITUTIONAL: Denies fever, chills, night sweats, weight loss EYES: No blurring of vision or redness. ENT: No sore throat. No epistaxis. No tinnitus. CARDIOVASCULAR: No chest pain. No palpitations. RESPIRATORY: No dyspnea, no wheeze, no cough, no hemoptysis GASTROINTESTINAL: No nausea, vomiting, or diarrhea. GENITOURINARY: No frequency, urgency, nocturia. No hematuria or dysuria. MUSCULOSKELETAL: No arthralgias or myalgias. INTEGUMENTARY: No rash or swelling NEUROLOGIC: No headache. No numbness or tingling of the extremities. No weakness. PSYCHIATRIC: No confusion or mood changes. ENDOCRINE: No fatigue, no goiter. HEMATOLOGICAL: No bleeding. No petechiae. No bruising. PHYSICAL EXAMINATION: VITAL SIGNS: Please see below. GENERAL APPEARANCE: Alert and awake. On BiPAP is able to speak in full sentences HEENT: no thyromegaly, trachea midline, PERRLA. normal mucous membranes RESPIRATORY: In respiratory distress he is tachypneic, CTA B/L, good air entry. Thoracostomy tube in the left anterior chest with air leak present in the pleural VAC drainage system CARDIOVASCULAR: +s1 s2, no murmurs. ABDOMEN: nontender, not distended, +BS EXTREMITIES: Left arm AV fistula with good bruit, no edema or erythema. palpable distal pulses SKIN: no rash, no purpura NEUROLOGICAL: no sensory or motor deficits, orientedx3. LABS/IMAGING: chest x-ray 06/13/2021 moderate left pneumothorax without evidence of tension. There is pneumomediastinum and predominantly right-sided subcu emphysema. CT chest without contrast 06/13/2021 small bilateral pneumothoraces. There is a chest tube on the left. There is pneumomediastinum and right-sided subcu emphysema extending into both sides of the neck. There is diffuse groundglass opacity of the lungs. IMPRESSION: The most critical problems requiring my immediate presence at bedside are: 1. Acute hypoxic respiratory failure secondary to Covid pneumonia/ARDS complicated by pneumothorax and pneumomediastinum status post chest tube placement. 2. LINDA likely prerenal in the setting of anorexia for the past few weeks 3. High anion gap metabolic acidosis secondary to renal failure and lactic acidosis with respiratory compensation 4. History of end-stage renal disease on chronic immunosuppressive therapies including daily prednisone 5 mg 5. ?A. fib RVR status post synchronized cardioversion by EMS on route to hospital 6. Sepsis present on admission PLAN: HR ADVISOR: Patient is agitated can give Seroquel x1 PULM: HOB 30 degrees. Maintain Sp02 94-98%. Titrate down FiO2 as tolerated. Continue with BiPAP 12/6 and FiO2 70% increased respiratory rate to 26. After dialysis can try Vapotherm. Repeat ABG now. Keep chest tube to suction. Agree with Decadron 10 mg IV daily CARDIO: Maintain MAPs 60-65. EKG. Rate control. Follow-up lactate. If develops hypotension would start stress dose steroids hydrocortisone 50 mg every 6 hours. GI: N.p.o. for now while on BiPAP, feeding while on Vapotherm RENAL: Nephrology on board he will be dialyzed today. Would hold immunosuppressive medications for now. ID: Community acquired pneumonia coverage as bacterial superinfection cannot be ruled out. Continue with remdesivir. Baricitinib not recommended in renal failure. Blood cultures. Check procalcitonin. ENDO: Monitor FS per routine. Goal range 140-180. HEME: On a heparin drip for new onset A. fib, monitor PTT LINES/CATHETERS: No central lines and no Vasquez catheter. CODE STATUS: Full code. DISPOSITION: ICU monitoring. A total of 51 minutes of critical care time was spent on patient care, not including procedures Thank you for the courtesy of this consult. Please text me on Vocera for any questions or concerns. Vital Signs/I&O Vital Signs Date Time Temp Pulse Resp B/P (MAP) Pulse Ox O2 Delivery O2 Flow Rate FiO2 06/13/21 13:25 98.0 95 44 127/75 (92) 95 NIPPV (BIPAP/CPAP) 70 06/13/21 09:54 15.0 Laboratory Data Labs 24H Laboratory Tests 2 06/13/21 09:22: POC Glucose (Misc Panel) 205H, POC Sodium (Misc Panel) 135L, POC Potassium (Misc Panel) 3.0L, POC Chloride (Misc Panel) 100, POC Total CO2 (Misc Panel) 11.0L, POC Blood Urea Nitrogen (Misc Panel > 140H, POC Ionized Calcium (Misc Panel) 3.4*L, POC Creatinine (Misc Panel) 11.9H, POC Hematocrit (Misc Panel) 49.0 06/13/21 09:32: Neutrophils (%) (Auto) , Nucleated Red Blood Cells % (auto) 0.0, Neutrophils 85H, Band Neutrophils 3, Lymphocytes (Manual) 7L, Monocytes (Manual) 5, Anisocytosis 1+, Platelet Estimate INCREASED, Prothrombin Time 20.1H, Prothromb Time International Ratio 1.67, Activated Partial Thromboplast Time 38.4, Fibrinogen 1318H, D-Dimer, Quantitative > 4000H, Anion Gap 29H, Glomerular Filtration Rate 5.3L, Lactic Acid Level 4.9*H, Calcium Level 7.6L, Magnesium Level 2.6H, Ferritin 7590H, Total Bilirubin 0.5, Aspartate Amino Transf (AST/SGOT) 32, Alanine Aminotransferase (ALT/SGPT) 38, Alkaline Phosphatase 92, Lactate Dehydrogenase 993H, Total Creatine Kinase 156, Creatine Kinase MB 1.7, Creatine Kinase MB Relative Index 1.09, Troponin I 0.02, C-Reactive Protein, Q uantitative 27.50H, Total Protein 8.1, Albumin 2.8L, Albumin/Globulin Ratio 0.5 06/13/21 09:37: Blood Gas Bicarbonate Standard 8.3L, Arterial Blood pH 7.057*L, Arterial Blood Partial Pressure CO2 18.0*L, Arterial Blood Partial Pressure O2 168.0H, Arterial Blood Total CO2 5.5L, Arterial Blood HCO3 4.9L, Arterial Blood Base Excess - 23.6L, Arterial Blood Oxygen Saturation 98.5 06/13/21 13:57: CBC/BMP Laboratory Tests 06/13/21 09:32 Microbiology Microbiology 06/13/21 Blood Culture, Received Pending 06/13/21 Respiratory Virus Panel (PCR) ([facility]) - Final, Complete SARS-CoV-2 (COVID 19) 06/13/21 Blood Culture, Received Pending Allergies Coded Allergies: No Known Drug Allergies (Verified Allergy, Unknown, 06/13/21) Home Medications Scheduled Aspirin (Aspirin EC) 81 Mg Tab, 81 MG PO DAILY, (Reported) Azithromycin (Azithromycin) 250 Mg Tablet, 250 MG PO DAILY, (Reported) Metoprolol Tartrate (Metoprolol Tartrate) 25 Mg Tab, 25 MG PO BID, (Reported) Mycophenolate Mofetil (Mycophenolate Mofetil) 250 Mg Cap, 500 MG PO BID, (Reported) Prednisone (Prednisone) 5 Mg Tab, 5 MG PO DAILY, (Reported) Tacrolimus (Tacrolimus) 1 Mg Cap, 3 MG PO DAILY, (Reported) QAM Tacrolimus (Tacrolimus) 1 Mg Capsule, 2 MG PO QHS, (Reported) Scheduled PRN Albuterol Sulfate (Albuterol Sulfate Hfa) 8.5 Gm Hfa.aer.ad, 2 PUFF INH Q4H PRN for SOB/WHEEZING, (Reported) CANDELARIA LOO MD Jun 13, 2021 14:34
[2021-06-13] MEDS: DOXYCYCLINE HYCLATE 100 MG in D5W MINI-BAG PLUS 100 ML IV SCH (14:37)
[2021-06-13] MEDS: HEPARIN DRIP 25,000 UNITS in IV 1 EA IV SCH (14:41)
[2021-06-13] MEDS ORDERED: HALOPERIDOL 5MG/ML VIAL (J1630 PER 1) As Ordered ONE (15:15)
[2021-06-13 15:17] LABS: ALBUMIN 2.5 GM/DL (3.2-5.2); GLOMERULAR FILTRATION RATE 5.9 (>60); PHOSPHORUS LEVEL 8.7 MG/DL (2.5-4.9)
[2021-06-13] MEDS ORDERED: HALOPERIDOL 5MG/ML VIAL (J1630 PER 1) IV STA (15:17)
[2021-06-13] MEDS: dexmedeTOMidine 200 MCG in IV 1 EA IV SCH ×2 (15:45→17:55)
[2021-06-13] MEDS ORDERED: QUEtiapine FUMARATE 50MG TAB PO ONE (16:00)
[2021-06-13] MEDS ORDERED: SODIUM CHLORIDE 0.9% 1000ML IV PRN (16:50)
[2021-06-13] MEDS ORDERED: LIDOCAINE 1% SDV 5ML VIAL SC PRN (16:50)
[2021-06-13] MEDS ORDERED: REMDESIVIR 200 MG in NS 250 ML IV ONE (17:00)
[2021-06-13] MEDS ORDERED: LORazepam 2 MG/ML VIAL As Ordered ONE (17:05)
[2021-06-13] MEDS ORDERED: LORazepam 2 MG/ML VIAL IV STA (17:08)
[2021-06-13 17:41] LABS: HEMOGLOBIN A1c 5.7 %
[2021-06-13] MEDS: METOPROLOL TART 25 MG TABLET PO SCH (18:00)
[2021-06-13 18:29] LABS: CREATININE FOR GFR 10.3 MG/DL (0.70-1.30)
[2021-06-13] MEDS ORDERED: SODIUM CHLORIDE 0.9% INJ 10 ML SYR IV ONE (19:00)
[2021-06-13] MEDS: NOREPINEPHRINE BITARTRATE 8 MG in D5W 492 ML IV SCH (19:15)
[2021-06-13 19:31] LABS: CHOLESTEROL RISK RATIO 4.588 (<5)
[2021-06-13] MEDS ORDERED: NOREPINEPHRINE 4 MG/4 ML AMP As Ordered ONE (19:31)
[2021-06-13] MEDS ORDERED: LORazepam 2 MG/ML VIAL IV PRN (19:40)
--- NOTE | 2021-06-13 20:02 | ECGEPIP ---
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
--- NOTE | 2021-06-13 20:03 | ECGEPIP ---
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
[2021-06-13] MEDS ORDERED: PROPOFOL 1,000 MG/100 ML VIAL As Ordered ONE (20:30)
[2021-06-13] MEDS ORDERED: propofoL 200 MG/20 ML VIAL As Ordered ONE (20:31)
[2021-06-13] MEDS ORDERED: SUCCINYLCHOLINE INJ 200 MG/10 ML VIAL (J0330) IV STA (20:45)
[2021-06-13] MEDS ORDERED: ETOMIDATE INJ 20MG/10ML VIAL IV STA (20:45)
[2021-06-13] MEDS ORDERED: TACROLIMUS 1 MG CAP (J7507) PO SCH (21:00)
[2021-06-13] MEDS ORDERED: MYCOPHENOLATE MOFETIL 250 MG CAP (J7517) PO SCH (21:00)
--- NOTE | 2021-06-13 21:24 | ROOPDOC ---
[facility] Report Of Operation Report of Operation INDICATION: Hypotension and venous access PROCEDURE: Left internal jugular triple-lumen catheter placement PROCEDURE OUTBOUND SALES PROFESSIONAL: Dr. Shine CONSENT: Consent was implied as the procedure was done under emergency circumstances PROCEDURE SUMMARY: A time out was performed. My hands were washed immediately prior to the procedure. I wore a surgical cap, mask with protective eyewear, full gown and sterile gloves throughout the procedure. The patient was placed in Trendelenburg position. The left chest region was prepped using chlorhexidine scrub and draped in sterile fashion using a full drape and sterile probe cover and sterile gel employed. The left internal Jugular vein was identified using the ultrasound. Anesthesia was achieved over the vein using 1% lidocaine. Using real-time out of plane guidance, the introducer needle was inserted into the Internal Jugular vein under direct ultrasound visualization. Venous blood was withdrawn. The syringe was removed and a guidewire was advanced into the introducer needle. The guidewire was visualized in the Internal Jugular Vein by ultrasound. A small incision was made at the skin surface with a scalpel and the introducer needle was exchanged for a dilator over the guidewire. After appropriate dilation was obtained, the dilator was exchanged over the wire for a central venous catheter. The wire was removed and the catheter was sutured in place at 17 cm. A sterile shield was placed over the catheter at the insertion site. The patient tolerated the procedure without any hemodynamic compromise. At time of procedure com pletion, all ports aspirated and flushed properly. Post-procedure chest x-ray shows the line is in satisfactory position. Estimated blood loss is 10 cc. CANDELARIA SHINE MD Jun 13, 2021 21:24
[2021-06-13] MEDS: propofoL 1,000 MG in IV 1 EA IV SCH (21:30)
[2021-06-13] MEDS ORDERED: REFRIGERATOR IV KEYS XX PRN (21:30)
[2021-06-13] MEDS ORDERED: fentaNYL CITRATE 1,000 MCG in NS 80 ML IV SCH (21:30)
[2021-06-13] MEDS ORDERED: MIDAZOLAM HCL 100 MG in D5W 80 ML IV SCH (21:30)
[2021-06-13 21:58] LABS: ABG BASE EXCESS -12.9 (-2.0-2.0); ABG HCO3 14.3 MEQ/L (22.0-26.0); ABG O2 SATURATION 98.3 % (95.0-99.0); ABG PARTIAL PRESSURE CO2 37.4 mmHg (35.0-45.0); ABG PARTIAL PRESSURE O2 139.4 mmHg (75.0-100.0); ABG STANDARD HCO3 14.8 MEQ/L (22.0-26.0); ABG TOTAL CO2 15.5 MEQ/L (22.0-29.0)
[2021-06-13 21:59] LABS: ABG pH (ARTERIAL) 7.201 UNITS (7.350-7.450)
--- NOTE | 2021-06-13 22:10 | REPVR ---
PROCEDURE INFORMATION: Exam: XR Chest Exam date and time: 06/13/2021 9:28 PM Age: 40 years old Clinical indication: Device placement; Ett placement (vent status); Additional info: Intubation TECHNIQUE: Imaging protocol: XR of the chest. Views: 1 view. COMPARISON: CT Chest without contrast 06/13/2021 9:49 AM FINDINGS: Tubes, catheters and devices: ETT just below the clavicular heads, approximately 3.5 cm above the johanna. Left internal jugular central line to the proximal superior vena cava. Left chest tube in position in the lateral left apex. Lungs: Mild scattered bilateral pulmonary infiltrates. Pleural spaces: Unremarkable. No pleural effusion. No pneumothorax. Heart/Mediastinum: Unremarkable. No cardiomegaly. Bones/joints: Unremarkable. Soft tissues: Subcutaneous emphysema about the neck and upper chest. Surgical clips are noted in the lower neck, particularly to the right. IMPRESSION: 1. ET tube in position with the tip just below the clavicular heads, approximately 3.5 cm above the johanna. 2. Left internal jugular central line to the proximal superior vena cava. 3. Left lateral apical chest tube in position. 4. Subcutaneous emphysema about the upper chest and neck. 5. Scattered bilateral pulmonary infiltrates. Electronically signed by: Keyon Barber On 06/13/2021 22:10:22 PM
[2021-06-13] MEDS ORDERED: SODIUM BICARBONATE 150 MEQ in D5W 1,000 ML IV SCH (23:00)
--- NOTE | 2021-06-13 23:45 | CR ---
NEPHROLOGY CONSULTATION DATE: 06/13/2021 REQUESTING PHYSICIAN: Chantal Moore M.D. CONSULTING PHYSICIAN: Molly Alvarenga D.O. REASON FOR CONSULTATION: Acute renal failure in this patient with renal transplantation and COVID pneumonia. HISTORY OF PRESENT ILLNESS: Mr. Dewey Barajas is a 40-year-old male. He is previously unknown to me. He was a previous patient of the [facility], but he has not been seen in the local nephrology office since 2014. He has a past medical history of end-stage renal disease, status post altruistic living donor kidney transplantation in 2016, maintained on chronic triple immunosuppression with CellCept, Tacrolimus and Prednisone. Available records through [facility] are reviewed. The patient was last seen there April 2020 and apparently only sporadically has laboratory work done and the patient has had worsening function of his renal allograft. He does still have a patent left upper extremity AV fistula. The patient is unvaccinated for COVID-19. He presented to the Emergency Room with complaints of progressive shortness of breath over the past several days and a productive cough with yellow sputum which was quite strenuous in nature. He denied hemoptysis. He tells me he did not notice any change in his urine output. He presented to the Emergency Department via EMS and was immediately noted to be in significant respiratory distress, and was in atrial fibrillation with rapid ventricular response and was significantly hypoxic. Urgent chest x-ray revealed a moderate left pneumothorax and pneumomediastinum. The patient had a chest tube placed. Laboratory studies revealed significant leukocytosis (white count 32) and renal failure with markedly elevated blood urea nitrogen of 210 and creatinine of 11.4 and lactic acidosis of 4.9 and significant high anion gap metabolic acidosis with pH of 7.0. The patient required BIPAP placement in the Emergency Room and was treated with beta carroll for his rapid ventricular response and nephrology evaluation was requested given his [id number] renal failure with high anion gap metabolic acidosis and also in view of COVID pneumonia in the setting of chronic immunosuppression related to his renal transplant. The patient was seen and examined by myself urgently this morning in the Emergency Room. Pt is in extremis and most of the history is from collateral medical records. PAST MEDICAL HISTORY: The patient's past medical history is significant for: 1. End-stage renal disease previously on hemodialysis and subsequently status post altruistic living donor renal transplantation in 2016. 2. Chronic immunosuppression (CellCept, Tacrolimus and Prednisone). 3. Chronic kidney disease. 4. Hypertension. 5. Hyperparathyroidism - status post parathyroidectomy. 6. Migraine headaches. PAST SURGICAL HISTORY: The patient's past surgical history is significant for: 1. Living donor kidney transplant March 2016. 2. Parathyroidectomy 2014. 3. Hernia repair. 4. Left upper extremity AV fistula placement. 5. Left hand repair. 6. Heel reconstruction. FAMILY HISTORY: Father of lung cancer. SOCIAL HISTORY: The patient is a never smoker. No alcohol the past few months. He denies any current or prior history of illicit substance abuse. He is unvaccinated. He lives alone. ALLERGIES: No known drug allergies. HOME MEDICATIONS: 1. Aspirin 81 mg p.o. daily. 2. Metoprolol 25 mg p.o. twice daily. 3. Mycophenolate 500 mg p.o. twice daily. 4. Prednisone 5 mg daily. 5. Tacrolimus 3 mg p.o. daily in the morning and 2 mg p.o. q. h.s. 6. Albuterol p.r.n. REVIEW OF SYSTEMS: The patient's review of systems is limited secondary to the patient's clinical condition and respiratory distress (wearing BIPAP at the time of my visit). Constitutional: The patient reports fatigue, reports generalized weakness. ENT: Denies change in vision. Denies change in hearing. Cardiovascular: Currently in atrial fibrillation. He denies chest pain or leg swelling. Respiratory: The patient reports severe shortness of breath which has improved since he came to the Emergency Room. Recently found to have a pneumothorax and now status post chest tube. Gastrointestinal: He denies any nausea or vomiting or diarrhea. Genitourinary: He denies any change in his urine output that he was aware of. Skin: He denies any new rashes or lesions. Musculoskeletal: He denies new myalgias or acute arthralgias. Neurological: He denies seizure or syncope. He reports a history of migraines. Endocrine: He reports hyperparathyroidism. He denies any diabetes or thyroid issues. +chronic steroid use Hematologic: He denies anticoagulant use. He denies anemia. The remainder review of systems is negative or as per HPI. PHYSICAL EXAMINATION: VITAL SIGNS: Temperature 98.0, pulse 95, respiratory rate 40, blood pressure 127/75, saturating 95% on 70% via BIPAP. GENERAL APPEARANCE: The patient is seen in the Emergency Room lying on the stretcher with his head elevated. A middle aged male in mild to moderate respiratory distress with BIPAP in place. He makes eye contact, looks fatigued and tired. NECK: Supple. Jugular veins were difficult to assess. HEART: Sounds were tachycardic and irregularly irregular. LUNGS: There is a chest tube in the left anterior chest with a pleural VAC drain. There is tachypnea. There is a BIPAP. Respirations appear shallow and tachypnic. ABDOMEN: Soft and there is no tenderness to palpation. EXTREMITIES: Left arm fistula is patent with thrill and bruit. Lower extremities have trace edema. SKIN: Warm and dry. NEUROLOGIC: He is somewhat tremulous but is oriented x3 and follows simple commands. LABORATORY STUDIES: Sodium 134, potassium 3.6, bicarbonate 11, anion gap 29, BUN 209, creatinine 11.4, lactic acid 4.9, ferratin 7,500, magnesium 2.6, AST ALT within normal range. CK within normal range. CRP 27.5, albumin 2.8. Hemoglobin 15.1, platelet count 441, white count 32.6. D-dimer greater than 4,000. Microbiology: Blood cultures pending. Respiratory viral panel positive for COVID-19. IMAGING: Chest CT, non-contrast done this morning there is extensive pneumomediastinum. The heart is enlarged. There is no pericardial effusion. There is extensive subcutaneous emphysema over the right chest wall. There is diffuse ground glass opacity of the lungs, consistent with pneumonia/pulmonary edema. There are bilateral pleural effusions. CT abdomen and pelvis done today, non-contrast there is a normal appearing right pelvic renal allograft. INPATIENT MEDICATIONS: 1. Ceftriaxone 2 grams IV times one and one gram IV daily. 2. Doxycycline 100 mg IV twice daily. 3. Heparin infusion. 4. Remdesivir 200 mg IV times one. 5. Dexamethasone 10 mg IV daily. 6. Metoprolol 25 mg p.o. q. 6 hourly. 7. Morphine p.r.n. 8. Zofran 4 mg IV times one. 9. Sodium Bicarbonate 50 mEq IV times one. PROBLEMS: 1. Acute renal failure superimposed on chronic kidney disease - The patient does not follow with [facility]. He has not been seen in our outpatient office since 2014. He does appear to sporadically follow up with [facility] Transplant Team, and I believe he last had a tele visit with them in April of 2020. Apparently he has had worsening function of his renal allograft. He had a recent Tacrolimus trough level done about a week ago (Tacrolimus trough equals 6.6). He is now admitted with severe renal failure in the setting of COVID pneumonia. He requires re-initiation of hemodialysis. Fortunately, he does have a patent left radiocephalic AV fistula. Dialysis orders are written for today. And I feel that the patient may also require dialysis again on Tuesday, June 14 given the severe elevation in his blood urea nitrogen level. There is additionally a degree of pulmonary edema on CT of the chest and the patient is in significant respiratory distress. I will try to remove 1.5 liters if tolerated by hemodynamics with today's dialysis treatment. Please dose his medications for dialysis dosing. 2. Chronic immunosuppression for renal transplant - The patient takes Tacrolimus, Prednisone and CellCept as an outpatient. CellCept can be held for the duration of this admission and does not need to be restarted. Likewise, Prednisone can be held as the patient is receiving Decadron and I will also hold Tacrolimus for a 48-hour period, and then we can consider resuming Tacrolimus at a lower dose. 3. COVID pneumonia with left sided pneumothorax and acute hypoxic respiratory failure the patient is unfortunately unvaccinated. He is being treated by the Primary Team with Remdesivir and IV steroids and is likely going to have further management by Pulmonary Critical Care. He additionally has pulmonary edema on CAT scan of the chest, and we will try and remove some fluid with hemodialysis. 4. High anion gap metabolic acidosis the patient's serum bicarbonate is only 11. ABG with pH of 7.0. He has a mild lactic acidosis as well. We will dialyze him for further correction of his acidemia. 5. Atrial fibrillation with rapid ventricular response in the setting of severe respiratory distress secondary to COVID pneumonia/ARDS and further complicated by the presence of pneumothorax and pneumomediastinum. The patient is receiving IV beta carroll and he is also now anticoagulated with a Heparin infusion. We will see how he tolerates fluid removal with hemodialysis. I would plan for a gentle treatment in view of current atrial fibrillation with rapid ventricular response and concern for hemodynamic instability given sepsis. Thank you for involving me in the care of Mr. Barajas. I will be happy to follow him along with you. ALEJA
[2021-06-14] VITALS (75 sets, daily range): BP systolic 85–141; BP diastolic 42–83
[2021-06-14] MEDS: propofoL 1,000 MG in IV 1 EA IV SCH ×3 (01:07→14:03)
[2021-06-14] MEDS: DOXYCYCLINE HYCLATE 100 MG in D5W MINI-BAG PLUS 100 ML IV SCH ×2 (03:39→16:14)
[2021-06-14] MEDS ORDERED: PROPOFOL 1,000 MG/100 ML VIAL As Ordered ONE (05:40)
[2021-06-14] MEDS: METOPROLOL TART 25 MG TABLET PO SCH ×2 (06:00)
[2021-06-14] MEDS: NOREPINEPHRINE BITARTRATE 8 MG in D5W 492 ML IV SCH (06:49)
[2021-06-14 07:27] LABS: BASO # 0.1 10^3/uL (0.0-0.2); BASO % 0.3 % (0.0-1.0); EOS % 0.1 % (0.0-3.0); HEMOGLOBIN 14.7 g/dl (13.5-17.5); LYMPH # 0.3 10^3/uL (1.5-5.0); LYMPH % 1.8 % (24.0-44.0); MEAN CORPUSCULAR HEMOGLOBIN 27.7 pg (27.0-33.0); MEAN CORPUSCULAR VOLUME 79.2 fl (80.0-96.0); MONO # 0.7 10^3/uL (0.0-0.8); MONO % 3.9 % (2.0-8.0); NEUTROPHILS # 16.4 10^3/uL (1.5-8.5); NEUTROPHILS % 91.7 % (36.0-66.0); PLATELET COUNT, AUTOMATED 455 10^3/uL (150-450); WHITE BLOOD COUNT 17.8 10^3/uL (4.0-10.0)
[2021-06-14 07:47] LABS: INR 1.53; PROTHROMBIN TIME 18.8 SECONDS (12.7-14.5)
[2021-06-14 07:49] LABS: PARTIAL THROMBOPLASTIN TIME 98.8 SECONDS (25.9-37.0)
[2021-06-14 08:04] LABS: CALCIUM LEVEL 7.3 MG/DL (8.5-10.1); CREATININE FOR GFR 9.93 MG/DL (0.70-1.30); GLOMERULAR FILTRATION RATE 6.2 (>60); MAGNESIUM LEVEL 2.5 MG/DL (1.8-2.4)
--- NOTE | 2021-06-14 08:28 | REP ---
INDICATION: OG tube placement. COMPARISON: 06/13/2021 at 9:17 p.m. TECHNIQUE: Portable FINDINGS: The technique utilized in obtaining the radiograph has magnified the cardiac silhouette and accentuated the interstitial markings. The cardiomediastinal silhouette is unchanged. Since the last examination and oral gastric tube has been placed. The tip of the tube is in the region of the stomach fundus. The proximal port appears just distal to the gastroesophageal junction. The central venous catheter and endotracheal tube are unchanged. The lung onofre are unchanged. Patchy interstitial and airspace opacities are noted status quo. Subcutaneous emphysema is unchanged. There is no change in the osseous structures. IMPRESSION: Oral gastric tube as described above. Otherwise no significant change. <Electronically signed by Zack Jackson > 06/14/21 [id number]
[2021-06-14] MEDS: dexameTHASONE 4 MG/ML 1ML VIAL (J1100 PER 1MG) IV SCH (08:36)
[2021-06-14] MEDS ORDERED: TACROLIMUS 1 MG CAP (J7507) PO SCH (09:00)
[2021-06-14] MEDS ORDERED: SODIUM CHLORIDE 0.9% 1000ML IV PRN (09:20)
[2021-06-14 09:41] LABS: ABG BASE EXCESS -11.3 (-2.0-2.0); ABG HCO3 15.6 MEQ/L (22.0-26.0); ABG O2 SATURATION 95.9 % (95.0-99.0); ABG PARTIAL PRESSURE CO2 38.4 mmHg (35.0-45.0); ABG PARTIAL PRESSURE O2 93.5 mmHg (75.0-100.0); ABG STANDARD HCO3 15.7 MEQ/L (22.0-26.0); ABG TOTAL CO2 16.8 MEQ/L (22.0-29.0); ABG pH (ARTERIAL) 7.226 UNITS (7.350-7.450)
[2021-06-14] MEDS: HEPARIN DRIP 25,000 UNITS in IV 1 EA IV SCH ×2 (10:00→14:04)
--- NOTE | 2021-06-14 11:07 | IPNPDOC ---
Text Note Date of Service The patient was seen on 06/14/21. NOTE CRITICAL CARE PROGRESS NOTE: SUBJECTIVE: Patient seen and examined at bedside this morning. Patient remains on mechanical ventilation. Patient was intubated yesterday after becoming encephalopathic on the BiPAP and lethargic. He is afebrile this morning and Levophed was turned off at 8:30 AM. He is on the following drips: Propofol 40, heparin drip, bicarb drip at 100 cc an hour. He did have hemodialysis yesterday in which they took off a 500 cc. He has his chest tube on the left side in place and there is no air leak present. He is mildly tachycardic and in A. fib on the monitor. All other ROS are negative except as mentioned above PHYSICAL EXAMINATION: VITAL SIGNS: Please see below. GENERAL APPEARANCE: On mechanical ventilation HEENT: no thyromegaly, trachea midline, PERRLA. normal mucous membranes RESPIRATORY: Intubated, good air entry bilaterally, left anterior chest tube in place CARDIOVASCULAR: Tachycardic and irregular rhythm. +s1 s2, no murmurs. ABDOMEN: nontender, not distended, +BS EXTREMITIES: Mild edema lower extremity. Palpable distal pulses SKIN: no rash, no purpura NEUROLOGICAL: Sedated not following commands PERTINENT LABS/IMAGING: Chest x-ray from this morning shows bilateral infiltrates. There is no pneumothorax. There is left sided chest tube in place. ET tube ET tube, OG tube, left IJ central line are in satisfactory position IMPRESSION: 1. Acute hypoxic respiratory failure secondary to Covid pneumonia/ARDS complicated by pneumothorax and pneumomediastinum status post chest tube placement with resolved pneumothorax on chest x-ray and no air leak present. 2. LINDA likely prerenal in the setting of anorexia vs ATN from sepsis, s/p HD via left arm AVF 3. High anion gap metabolic acidosis secondary to renal failure. Lactic acidosis resolved. 4. History of end-stage renal disease on chronic immunosuppressive therapies including daily prednisone 5 mg 5. New A. fib RVR status post synchronized cardioversion by EMS on route to hospital on full anticoagulation 6. Sepsis present on admission 7. Septic shock improving PLAN: CARD CUTTER: Sedation vacation, can resume propofol if becomes awake or agitated, m aintain light sedation. PULM: HOB 30 degrees. Maintain Sp02 94-98%. Titrate down FiO2 as tolerated. Place chest tube to waterseal. Repeat chest x-ray in 2 hours. Continue current vent settings 20/400/8/100, decrease FiO2 90%. Decadron 10 mg dailyday 2 CARDIO: Maintain MAPs 60-65. Increase metoprolol to 50 every 8 hours if BP allows. If worsening shock, will start stress dose steroids GI: Start tube feeds and increase to goal RENAL: We will get hemodialysis today, DC bicarb drip ID: Continue with antibiotics until cultures, on Rocephin and doxycycline, check MRSA nares, procal, bcx, dta, mrsa nare. dc remdesivir due to LINDA and is on dialysis and since more than 2 weeks since onset of his symptoms. Baricitinib 1 mg daily, despite renal failure, as benefits outweigh the risks. monitor LFTs ENDO: Monitor FS per routine. Goal range 140-180. HEME: On a heparin drip for new onset A. fib, monitor PTT LINES/CATHETERS: Left IJ central line, Vasquez, chest tube CODE STATUS: Full code. DISPOSITION: ICU monitoring. VS,Fishbone, I+O VS, Fishbone, I+O Laboratory Tests 06/13/21 13:57 06/14/21 06:00 Vital Signs Date Time Temp Pulse Resp B/P (MAP) Pulse Ox O2 Delivery O2 Flow Rate FiO2 06/14/21 10:15 102 93/62 (72) 94 06/14/21 10:05 Ventilator 100 06/14/21 09:32 22 06/14/21 08:00 97.6 06/13/21 09:54 15.0 I&O- Last 24 Hours up to 6 AM 06/14/21 06:00 Intake Total 1108.4 ml Output Total 675 ml Balance 433.4 ml CANDELARIA LOO MD Jun 14, 2021 11:07
--- NOTE | 2021-06-14 11:55 | REP ---
INDICATION: CT. COMPARISON: 06/14/2021 at 7:27 a.m. TECHNIQUE: Portable FINDINGS: The technique utilized in obtaining the radiograph has magnified the cardiac silhouette and accentuated the interstitial markings. The tubes and line are unchanged. There is an additional tube seen a crossed the lower neck transversely. I have not been given history as to with this tube represents. The tip of the tube is in the right shoulder region. The lung onofre and cardiomediastinal silhouette are unchanged. IMPRESSION: No significant change from earlier today other than a single additional tube as described above. <Electronically signed by Zack Jackson > 06/14/21 [id number]
[2021-06-14] MEDS: PANTOPRAZOLE 40MG VIAL (C9113 PER 1) IV SCH (12:40)
[2021-06-14] MEDS: cefTRIAXone SOD 1 GM in D5W MINI-BAG PLUS 50 ML IV SCH (12:40)
--- NOTE | 2021-06-14 12:49 | IPN ---
NEPHROLOGY PROGRESS NOTE DATE: 06/14/2021 SUBJECTIVE: Mr. Barajas is seen and examined this morning at the bedside in the Intensive Care Unit. I was in touch with the hemodialysis nurse yesterday evening. The patient had a little but under 2 hours of dialysis yesterday. His treatment needed to be cut short because of respiratory distress. He was intubated and this morning he is on the ventilator on 100% FiO2. Blood pressures have been soft overnight. He is requiring Levophed pressor support. He remains in oligoanuric renal failure and is going to be dialyzed again this afternoon, and I subsequently saw the patient on dialysis this afternoon as well. REVIEW OF SYSTEMS: The patient's review of systems was unable to be obtained secondary to clinical condition. OBJECTIVE: PHYSICAL EXAMINATION: VITAL SIGNS: Temperature 97.6, blood pressure 102/66, respiratory rate 28, heart rate 104, saturating 95% on 100% FiO2. INTAKE AND OUTPUT: Intake yesterday was not fully recorded, likely around 1.6 liters, given that he has been on a D5W bicarbonate drip at 100 mL hourly since yesterday evening. Weight in the bed scale today was not recorded. GENERAL APPEARANCE: The patient was seen in the ICU intubated and sedated with the dialysis treatment ongoing. HEENT: Pupils are reactive to light. Endotracheal tube and orogastric tube in place. NECK: There is a left IJ central line present. HEART: Sounds are regular and tachycardic. LUNGS: Breath sounds are coarse bilaterally. The patient is mechanically ventilated. ABDOMEN: Soft and there are bowel sounds. He is receiving tube feeds. EXTREMITIES: There is a fistula in the left arm which is in use. There is a Vasquez catheter with minimal urine draining. Extremities show trace to 1+ leg edema. NEUROLOGICAL: He is sedate. LABORATORY STUDIES: White count 17.8, down from 32 on admission. Hemoglobin 14.7, platelet count 455. Sodium 135, potassium 3.0, bicarbonate 17, BUN 159, creatinine 9.9. PH on the ABG was 7.22, pco2 38, pO2 93. Blood cultures showed no growth for 24 hours times one set. IMAGING: Chest x-ray this morning shows patchy interstitial and air space opacities status quo and ongoing subcutaneous emphysema which is unchanged. INPATIENT MEDICATIONS: The patient is on: 1. IV Ceftriaxone. 2. He is on Levophed infusion. 3. He was receiving D5W with 150 mEq of sodium bicarbonate running at 100 mL an hour overnight. I held that his morning. 4. He is on Doxycycline 100 mg IV twice daily. 5. He is on a Heparin infusion. 6. He is on Propofol. 7. He is on Remdesivir. 8. Dexamethasone 10 mg IV daily. 9. Lorazepam p.r.n. 10. Protonix 40 mg IV daily. 11. Seroquel 50 mg p.o. times one. PROBLEMS: 1. [id number] renal failure in this patient with failed renal allograft and concomitant COVID pneumonia. He was dialyzed yesterday. His treatment was cut short (a little but under 2 hours of dialysis was performed). Because he was in respiratory distress and was subsequently intubated; he is being dialyzed again this afternoon. I feel it is very unlikely that he will have recovery of renal function and he is likely going to need chronic hemodialysis at this point. Fortunately he does have a patent left radiocephalic AV fistula. He will be reassessed for dialysis needs on a daily basis. 2. Chronic immunosuppression renal allograft is unlikely to recover function. The patient is critically ill with COVID pneumonia and has high FiO2 requirement. I would hold CellCept for the duration of this admission. He likewise does not need Prednisone given that he is on IV Decadron, and we are holding Tacrolimus for a 48-hour period, and then we can consider resuming Tacrolimus at a lower dose. He does not follow up with [facility]. On Tuesday we can get in touch with his transplant certified shorthand reporter at [facility] to give them an update regarding the patient's clinical condition and to discuss immunosuppression. 3. COVID pneumonia with acute hypoxic respiratory failure/ARDS being treated by the Pulmonary Critical Care Team. He is on IV steroids. He is on Remdesivir. He has considerable FiO2 requirement. His chronic immunosuppression has been significantly scaled down. His overall prognosis is quite poor. FiO2 is currently at 90%. 4. Hypotension - The patient continues to require Levophed. He met criteria for sepsis on admission. His white count has decreased from 32 down to 17. His blood cultures are negative. He is currently receiving Doxycycline and Ceftriaxone. Consideration can be given to stress dose steroids, given chronic steroid use and I would defer to the Primary Team. He was also in atrial fibrillation with rapid ventricular response, but he has not received too much beta-carroll given his soft blood pressures. Heart rate is around 100 to 110. 5. High anion gap metabolic acidosis - The patient will be dialyzed again today, and I have increased the bicarbonate in the dialysis bath to 35. 6. Hypokalemia it will improve with dialysis. We are dialyzing him with a 4.0 mEq dialysis bath. MTDD
[2021-06-14] MEDS ORDERED: AMIODARONE HCL 150 MG in IV 1 EA IV ONE (13:35)
[2021-06-14] MEDS ORDERED: AMIODARONE HCL 150 MG/100 ML PREMIXED BAG (NEXTERONE) (J0282 PER 30MG) As Ordered ONE (13:42)
[2021-06-14] MEDS ORDERED: AMIODARONE HCL 360 MG in IV 1 EA IV SCH (13:50)
[2021-06-14] MEDS ORDERED: METOPROLOL TART 50 MG TAB PO SCH (14:00)
[2021-06-14] MEDS ORDERED: MIDAZOLAM INJ 2MG/2ML VIAL (J2250 PER 1MG) IV PRN (14:05)
[2021-06-14] MEDS: BARICITINIB 2MG TABLET (OLUMIANT) FOR EUA PO SCH (16:14)
[2021-06-14] MEDS ORDERED: REMDESIVIR 100 MG in NS 250 ML IV SCH (17:00)
[2021-06-14] MEDS ORDERED: SODIUM CHLORIDE 0.9% INJ 10 ML SYR IV SCH (18:00)
[2021-06-14] MEDS: AMIODARONE HCL 360 MG in IV 1 EA IV SCH (19:55)
[2021-06-15] VITALS (30 sets, daily range): BP systolic 88–133; BP diastolic 50–75
[2021-06-15] MEDS: propofoL 1,000 MG in IV 1 EA IV SCH ×5 (02:31→20:12)
[2021-06-15] MEDS: DOXYCYCLINE HYCLATE 100 MG in D5W MINI-BAG PLUS 100 ML IV SCH ×2 (02:31→15:00)
[2021-06-15 04:34] LABS: BASO # 0.1 10^3/uL (0.0-0.2); BASO % 0.3 % (0.0-1.0); HEMATOCRIT 40.9 % (42.0-52.0); HEMOGLOBIN 14.2 g/dl (13.5-17.5); LYMPH # 0.3 10^3/uL (1.5-5.0); LYMPH % 1.7 % (24.0-44.0); MEAN CORPUSCULAR HEMOGLOBIN 27.5 pg (27.0-33.0); MEAN CORPUSCULAR HGB CONC 34.7 g/dl (32.0-36.5); MEAN CORPUSCULAR VOLUME 79.1 fl (80.0-96.0); MONO # 0.9 10^3/uL (0.0-0.8); MONO % 5.1 % (2.0-8.0); NEUTROPHILS # 15.8 10^3/uL (1.5-8.5); NEUTROPHILS % 88.7 % (36.0-66.0); PLATELET COUNT, AUTOMATED 480 10^3/uL (150-450); RED BLOOD COUNT 5.17 10^6/uL (4.30-6.10); WHITE BLOOD COUNT 17.8 10^3/uL (4.0-10.0)
[2021-06-15 04:47] LABS: INR 1.39; PROTHROMBIN TIME 17.5 SECONDS (12.7-14.5)
[2021-06-15 04:49] LABS: PARTIAL THROMBOPLASTIN TIME 91.7 SECONDS (25.9-37.0)
[2021-06-15 05:24] LABS: ALBUMIN 2.2 GM/DL (3.2-5.2); ALT/SGPT 27 U/L (12-78); BILIRUBIN,DIRECT 0.2 MG/DL (0.0-0.2); BILIRUBIN,TOTAL 0.4 MG/DL (0.2-1.0); BLOOD UREA NITROGEN 96 MG/DL (7-18); CALCIUM LEVEL 7.2 MG/DL (8.5-10.1); CARBON DIOXIDE LEVEL 24 MEQ/L (21-32); CHLORIDE LEVEL 92 MEQ/L (98-107); CPK CREATINE PHOSPHOKINASE 540 U/L (39-308); CREATININE FOR GFR 6.93 MG/DL (0.70-1.30); FERRITIN 5981 NG/ML (26-388); GLOMERULAR FILTRATION RATE 9.4 (>60); GLUCOSE, FASTING 220 MG/DL (70-100); LDH LACTATE DEHYDROGENASE 517 U/L (87-241); MAGNESIUM LEVEL 2.3 MG/DL (1.8-2.4); NT-PRO BNP 8013 PG/ML (<125); POTASSIUM SERUM 3.2 MEQ/L (3.5-5.1); SODIUM LEVEL 133 MEQ/L (136-145); TROPONIN I < 0.02 NG/ML (< 0.10)
[2021-06-15 06:17] LABS: ABG HCO3 20.6 MEQ/L (22.0-26.0); ABG O2 SATURATION 93.6 % (95.0-99.0); ABG PARTIAL PRESSURE O2 73.8 mmHg (75.0-100.0); ABG STANDARD HCO3 20.3 MEQ/L (22.0-26.0); ABG TOTAL CO2 21.8 MEQ/L (22.0-29.0); ABG pH (ARTERIAL) 7.329 UNITS (7.350-7.450)
[2021-06-15] MEDS: AMIODARONE HCL 360 MG in IV 1 EA IV SCH (07:24)
[2021-06-15] MEDS: PANTOPRAZOLE 40MG VIAL (C9113 PER 1) IV SCH (09:20)
[2021-06-15] MEDS: dexameTHASONE 4 MG/ML 1ML VIAL (J1100 PER 1MG) IV SCH (09:23)
[2021-06-15] MEDS ORDERED: DEXTROSE 50% 50 ML SYRINGE IV PRN (10:15)
[2021-06-15] MEDS ORDERED: GLUCAGON INJ 1MG VIAL SC PRN (10:15)
[2021-06-15] MEDS ORDERED: GLUCOSE 4GM CHEW TABLET PO PRN (10:15)
[2021-06-15] MEDS: cefTRIAXone SOD 1 GM in D5W MINI-BAG PLUS 50 ML IV SCH (11:19)
--- NOTE | 2021-06-15 11:35 | IPNPDOC ---
Text Note Date of Service The patient was seen on 06/15/21. NOTE CRITICAL CARE PROGRESS NOTE: SUBJECTIVE: Patient seen and examined at bedside this morning. Patient remains on mechanical ventilation. There were no overnight events. Patient is on low-dose Levophed and propofol drip at 40, patient also is on amiodarone drip 0.5 mg per hour and heparin drip. Patient is tolerating OG feeds in the ER at goal. Patient is afebrile last 24 hours. Patient's heart rate is better controlled today but remains in A. fib. Patient has left-sided chest tube in place to waterseal, no air leak. Patient made 40 cc urine last 24 hours. Hemodialysis was performed yesterday and 1 L was taken off. All other ROS are negative except as mentioned above PHYSICAL EXAMINATION: VITAL SIGNS: Please see below. GENERAL APPEARANCE: Sedated and intubated HEENT: no thyromegaly, trachea midline, PERRLA. normal mucous membranes RESPIRATORY: Breath sounds equal bilaterally, anterior chest tube in place CARDIOVASCULAR: +s1 s2, no murmurs. ABDOMEN: nontender, not distended, +BS EXTREMITIES: no edema or erythema. palpable distal pulses SKIN: no rash, no purpura NEUROLOGICAL: Sedated and does not follow commands but moves all extremities. PERTINENT LABS/IMAGING: Chest x-ray from this morning shows bilateral opacities, ET tube and left central line are in satisfactory position. OG to below the diaphragm. Left chest tube in place no pneumothorax. IMPRESSION: 1. Acute hypoxic respiratory failure secondary to Covid pneumonia/ARDS complica mary by pneumothorax and pneumomediastinum status post chest tube placement with resolved pneumothorax on chest x-ray and no air leak present. 2. LINDA likely prerenal in the setting of anorexia vs ATN from sepsis, s/p HD via left arm AVF 3. High anion gap metabolic acidosis secondary to renal failure. Lactic acidosis resolved. 4. History of end-stage renal disease on chronic immunosuppressive therapies including daily prednisone 5 mg, now with renal allograft failure 5. New A. fib RVR status post synchronized cardioversion by EMS on route to hospital on full anticoagulation 6. Sepsis present on admission 7. 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 PULM: HOB 30 degrees. Maintain Sp02 94-98%. Titrate down FiO2 as tolerated. Chest tube to waterseal, chest x-ray no pneumothorax. We will keep chest tube in place until patient is off positive pressure ventilation. Continue current vent settings 20/400/8/100, decrease FiO2 90%. DC Decadron as starting stress dose steroids CARDIO: Maintain MAPs 60-65. On amiodarone for rate control, start stress dose steroids hydrocortisone 50 every 6 for suspected adrenal insufficiency. Amiodarone 200 mg daily after the drip. GI: Start tube feeds and increase to goal. Check triglyceride level on propofol RENAL: Nephrology on board next dialysis will be tomorrow. ID: Continue with antibiotics until cultures, on Rocephin and doxycycline, MRSA negative, procal, bcx, dta, mrsa nare. dc remdesivir due to LINDA and is on dialysis and since more than 2 weeks since onset of his symptoms. Baricitinib 1 mg daily, despite renal failure, as benefits outweigh the risks. monitor LFTs ENDO: Monitor FS per routine. Goal range 140-180. Sliding scale insulin HEME: On a heparin drip for new onset A. fib, monitor PTT LINES/CATHETERS: Left IJ central line, Vasquez, chest tube to waterseal CODE STATUS: Full code. DISPOSITION: ICU monitoring. VS,Fishbone, I+O VS, Fishbone, I+O Laboratory Tests 06/15/21 04:00 Vital Signs Date Time Temp Pulse Resp B/P (MAP) Pulse Ox O2 Delivery O2 Flow Rate FiO2 06/15/21 11:18 108 35 91 Ventilator 100 06/15/21 10:30 120/67 (84) 06/15/21 08:00 97.7 06/13/21 09:54 15.0 I&O- Last 24 Hours up to 6 AM 06/15/21 06:00 Intake Total 2906.4 ml Output Total 1157 ml Balance 1749.4 ml CANDELARIA LOO MD Jun 15, 2021 11:35
[2021-06-15] MEDS: HumaLOG INSULIN (NovoLOG) PER UNIT SC SCH ×3 (11:52→23:37)
[2021-06-15 12:32] LABS: HEPATITIS B SURFACE ANTIBODY POSITIVE (POSITIVE)
[2021-06-15 12:42] LABS: HEPATITIS B SURFACE ANTIGEN NEGATIVE (NEGATIVE)
[2021-06-15 13:11] LABS: HEPATITIS B CORE ANTIBODY IGM NEGATIVE (NEGATIVE); HEPATITIS C VIRUS ABY INDEX < 0.0 INDEX (<0.8)
[2021-06-15 13:12] LABS: TRIGLYCERIDES LEVEL 213 MG/DL (<150)
[2021-06-15] MEDS: BARICITINIB 2MG TABLET (OLUMIANT) FOR EUA PO SCH (15:04)
[2021-06-15] MEDS: HYDROCORTISONE 100 MG/2 ML VIAL (J1720 PER 1) IV SCH ×2 (15:04→20:12)
[2021-06-15] MEDS: HEPARIN DRIP 25,000 UNITS in IV 1 EA IV SCH (16:11)
--- NOTE | 2021-06-15 20:23 | IPN ---
PROGRESS NOTE DATE: 06/15/2021 SUBJECTIVE: Mr. Barajas is seen and examined this morning in the Intensive Care Unit. 24-hour events are reviewed. Patient was dialyzed yesterday with 1 liter of fluid removed. He remains intubated and sedated and is still on 100% FIO2. Levophed was on hold at the time of my visit this morning. He does continue on Heparin drip. He is off of his chronic immunosuppressant (Tacrolimus and CellCept, he does continue on steroids). I put out a call to his transplant rubber chemist to discuss plan for his immunosuppression going forward. Patient remains in oligoanuric renal failure. He is receiving tube feeds and is still in atrial fibrillation and has a chest tube. He remains afebrile with improving white count. REVIEW OF SYSTEMS: Unable to obtain. OBJECTIVE: VITAL SIGNS: Temperature 97.9 pulse 98, respiratory rate 30, blood pressure 116/65, saturating 91% on 100% FIO2. INTAKE/OUTPUT: Intake yesterday was 2.1 liters. Dialysis removed 1 liter. Gastric drainage was 100 cc, net positive 900 cc. Weight in the bed scale today is 88.7 kg. GENERAL: Patient is seen intubated and sedated and mechanically ventilated. HEENT: Pupils are reactive. Orogastric tube is in place. There is a left IJ triple lumen catheter. HEART: Heart sounds are tachycardic and irregularly irregular. LUNGS: Sounds are coarse bilaterally. There is a chest tube in place as well. ABDOMEN: Soft and there are some bowel sounds. GENITOURINARY: Shows Vasquez catheter with minimal urine. There is a fistula in the left arm, which is patent with good thrill and bruit. EXTREMITIES: Show no edema. Peripheral pulses are palpable. NEUROLOGIC: He is sedate, but he is seen spontaneously moving extremities to tactile stimulus. LABORATORY DATA: White count 17.8, hemoglobin 14.2, platelets 480,000. Sodium 133, potassium 3.2, bicarbonate 24, BUN 96, creatinine 6.9. Magnesium 2.3. BNP 8,000. Albumin 2.2. Blood gas today: pH of 7.32, pCO2 of 40 and pO2 of 73. Blood cultures no growth 48-hours x2 sets. IMAGING: There is no chest x-ray seen today. INPATIENT MEDICATIONS: He is on I.V. Ceftriaxone, I.V. Doxycycline. Levophed is on hold. He continues on a Heparin infusion, Propofol infusion. He is on Baricitinib 1 mg daily, Hydrocortisone 50 mg I.V. every 6 hours, insulin, Versed p.r.n., Protonix 40 mg I.V. daily. PROBLEMS: 1. Acute oligoanuric renal failure in this patient with failed renal allograft: Patient is dialysis dependent at this point. There is no sign of renal recovery. I am quite pessimistic about likelihood of him regaining any function of his transplant kidney. I feel that dialysis is likely to be chronic for him. He was dialyzed yesterday with 1 liter of fluid removed and I will dialyze him next on June 16 and we will try to remove 1-2 liters as tolerated by his hemodynamics. His fistula is patent. 2. Chronic immunosuppression: Patient's immunosuppressant regimen is prednisone, CellCept and Tacrolimus. In terms of prednisone, he is receiving I.V. Hydrocortisone. In terms of CellCept, we will keep him off of it for the duration of this admission. In terms of Tacrolimus, I feel that this can continue to be held and I will discuss it with his transplant rubber chemist through [facility]. I have put a call out to them. Patient is currently receiving I.V. steroids and is also on Baricitinib and there is an additive immunomodulatory affect. 3. Ventilator dependent respiratory failure secondary to COVID pneumonia and complicated by pneumothorax. Patient is status post chest tube. His FIO2 is still at 100%. His overall prognosis is poor. He is on empiric antibiotics; Ceftriaxone and Doxycycline by the critical care team. His white count is down trending. We will try to keep him a little bit on the dryer side with hemodialysis if he can tolerate it from a hemodynamic point of view given his significant FIO2 requirements. 4. Atrial fibrillation: Patient is on Amiodarone and he is anticoagulated with a Heparin drip. 5. Anion gap metabolic acidosis secondary to renal failure: Plan for next dialysis treatment on June 16. ALEJA
[2021-06-16] VITALS (42 sets, daily range): BP systolic 80–182; BP diastolic 48–126
[2021-06-16] MEDS: DOXYCYCLINE HYCLATE 100 MG in D5W MINI-BAG PLUS 100 ML IV SCH ×2 (02:12→14:46)
[2021-06-16] MEDS: HYDROCORTISONE 100 MG/2 ML VIAL (J1720 PER 1) IV SCH ×4 (02:12→20:24)
[2021-06-16 04:42] LABS: BASO # 0.1 10^3/uL (0.0-0.2); BASO % 0.2 % (0.0-1.0); HEMATOCRIT 42.4 % (42.0-52.0); HEMOGLOBIN 14.5 g/dl (13.5-17.5); LYMPH # 0.3 10^3/uL (1.5-5.0); LYMPH % 1.2 % (24.0-44.0); MEAN CORPUSCULAR HEMOGLOBIN 27.6 pg (27.0-33.0); MEAN CORPUSCULAR HGB CONC 34.2 g/dl (32.0-36.5); MEAN CORPUSCULAR VOLUME 80.6 fl (80.0-96.0); MONO # 1.3 10^3/uL (0.0-0.8); MONO % 5.5 % (2.0-8.0); NEUTROPHILS # 21.5 10^3/uL (1.5-8.5); NEUTROPHILS % 89.5 % (36.0-66.0); PLATELET COUNT, AUTOMATED 478 10^3/uL (150-450); RED BLOOD COUNT 5.26 10^6/uL (4.30-6.10)
[2021-06-16 05:55] LABS: ALBUMIN 2.2 GM/DL (3.2-5.2); BILIRUBIN,TOTAL 0.4 MG/DL (0.2-1.0); CALCIUM LEVEL 7.3 MG/DL (8.5-10.1); CREATININE FOR GFR 9.59 MG/DL (0.70-1.30); GLOMERULAR FILTRATION RATE 6.5 (>60); MAGNESIUM LEVEL 2.9 MG/DL (1.8-2.4); TOTAL PROTEIN 8.1 GM/DL (6.4-8.2)
[2021-06-16] MEDS: HumaLOG INSULIN (NovoLOG) PER UNIT SC SCH ×3 (06:01→18:10)
[2021-06-16] MEDS: propofoL 1,000 MG in IV 1 EA IV SCH (07:45)
[2021-06-16] MEDS ORDERED: fentaNYL CITRATE 1,000 MCG in NS 80 ML IV SCH (08:40)
[2021-06-16] MEDS ORDERED: REFRIGERATOR IV KEYS XX PRN (08:40)
[2021-06-16 09:24] LABS: ABG BASE EXCESS -8.7 (-2.0-2.0); ABG HCO3 17.6 MEQ/L (22.0-26.0); ABG O2 SATURATION 97.2 % (95.0-99.0); ABG PARTIAL PRESSURE CO2 39.4 mmHg (35.0-45.0); ABG PARTIAL PRESSURE O2 104.8 mmHg (75.0-100.0); ABG STANDARD HCO3 17.6 MEQ/L (22.0-26.0); ABG TOTAL CO2 18.9 MEQ/L (22.0-29.0); ABG pH (ARTERIAL) 7.269 UNITS (7.350-7.450)
[2021-06-16] MEDS: AMIODARONE 200 MG TAB (PACERONE) PO SCH (09:29)
[2021-06-16] MEDS: PANTOPRAZOLE 40MG VIAL (C9113 PER 1) IV SCH (09:30)
[2021-06-16] MEDS: LEVEMIR (INSULIN DETEMIR) 1 UNITS/0.01ML SC SCH ×2 (09:31→20:23)
[2021-06-16] MEDS ORDERED: SODIUM CHLORIDE 0.9% 1000ML IV PRN (09:35)
--- NOTE | 2021-06-16 09:36 | REP ---
INDICATION: intubated. COMPARISON: 06/15/2021. TECHNIQUE: Single portable AP view of the chest was performed. FINDINGS: Endotracheal tube tip is 3.3 cm above the johanna. Nasogastric tube traverses into the stomach, the side port is in the stomach. Left central venous catheter is again noted with the tip in the superior vena cava. Diffuse bilateral infiltrates are grossly unchanged. There is a tiny right apical pneumothorax. Left chest tube tip overlies the left upper lung. IMPRESSION: Stable infiltrates. Tiny right apical pneumothorax. Left chest tube. <Electronically signed by Narendra Pickett > 06/16/21 0932
[2021-06-16] MEDS: fentaNYL CITRATE 1,000 MCG in NS 80 ML IV SCH (09:55)
[2021-06-16] MEDS ORDERED: MIDODRINE 5 MG TAB PO ONE (10:15)
--- NOTE | 2021-06-16 10:20 | IPNPDOC ---
Text Note Date of Service The patient was seen on 06/16/21. NOTE CRITICAL CARE PROGRESS NOTE: SUBJECTIVE: Patient seen and examined at bedside. Patient remains on mechanical ventilation. There were no overnight events. T-max in the last 24 hours is 102 degrees. His fingersticks have been in the 200s. He is currently on propofol drip at 40 and heparin drip. Levophed has been off since yesterday at 9 AM. Amnio drip has been off since yesterday afternoon. He is tolerating his tube feeds and they are at goal. His last dialysis was June 14. And is due for dialysis today. Last 24 hours his fluid balance is +3000 cc. Chest tube is on waterseal and there is no air leak. PTT was supratherapeutic and heparin drip is currently on hold. All other ROS are negative except as mentioned above PHYSICAL EXAMINATION: VITAL SIGNS: Please see below. GENERAL APPEARANCE: On mechanical ventilation HEENT: no thyromegaly, trachea midline, PERRLA. normal mucous membranes RESPIRATORY: Intubated with good air entry bilateral. He has left anterior chest tube to waterseal CARDIOVASCULAR: Sinus tach, +s1 s2, no murmurs. ABDOMEN: nontender, not distended, +BS EXTREMITIES: AV fistula, leg edema bilateral palpable distal pulses SKIN: no rash, no purpura NEUROLOGICAL: Sedated but withdraws to pain. PERTINENT LABS/IMAGING: Chest x-ray from this morning shows bilateral opacities, ET tube, OG, TLC are in satisfactory position. There is tiny right apical pneumothorax and what appears to be pneumomediastinum by my read. Left chest tube in position. Stable bilateral infiltrates IMPRESSION: 1. Acute hypoxic respiratory failure secondary to Covid pneumonia/ARDS complicated by pneumothorax and pneumomediastinum status post left chest tube placement with resolved left pneumothorax on chest x-ray and no air leak present. Now with tiny right apical pneumothorax. 2. LINDA likely prerenal in the setting of anorexia vs ATN from sepsis, s/p HD via left arm AVF 3. High anion gap metabolic acidosis secondary to renal failure. Lactic acidosis resolved. 4. History of end-stage renal disease on chronic immunosuppressive therapies including daily prednisone 5 mg, now with renal allograft failure 5. New A. fib RVR status post synchronized cardioversion by EMS, on full anticoagulation, status post amio drip and converted to sinus tach 6. Sepsis present on admission 7. 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 Maintain Sp02 88-96 %. Titrate down FiO2 as tolerated. Chest tube to waterseal, chest x-ray no left pneumothorax, drainage device without air leak. We will keep chest tube in place until patient is off positive pressure ventilation. Continue with ARDS protocol low tidal volume inhalation with a goal plateau less than 30 and driving pressure less than 15. ABG 7.26/39/104 on 26/400/12/90%. Plateau 22. Tiny right apical pneumothorax. Vent changes as follows: Tidal volume 380, FiO2 80%. Repeat gas in the afternoon after HD CARDIO: Maintain MAPs 60-65. Amiodarone 200 mg p.o. Hydrocortisone 50 mg every 6 hours for suspected adrenal insufficiency GI: Continue with tube feeds. Triglyceride 213 RENAL: Nephrology on board he will get hemodialysis today ID: As patient is having fever we will repeat blood cultures. DTA is pending. 1 set of blood cultures already negative and MRSA nares is negative. Procalcitonin is 28. Continue with antibiotics until cultures, on Rocephin and doxycycline. Baricitinib 1 mg dailyday 3 will complete 14-day course, monitor LFTs ENDO: Monitor FS per routine. Goal range 140-180. On subcu insulin Levemir and Humalog HEME: Repeat PTT and when therapeutic restart heparin drip. LINES/CATHETERS: Left IJ central line, Vasquez, chest tube to waterseal CODE STATUS: Full code. DISPOSITION: ICU monitoring. VS,Fishbone, I+O VS, Fishbone, I+O Laboratory Tests 06/16/21 04:00 Vital Signs Date Time Temp Pulse Resp B/P (MAP) Pulse Ox O2 Delivery O2 Flow Rate FiO2 06/16/21 09:22 109 31 96 85 06/16/21 08:00 102.0 133/69 (90) Ventilator 06/13/21 09:54 15.0 I&O- Last 24 Hours up to 6 AM 06/16/21 06:00 Intake Total 1996 ml Output Total 20 ml Balance 1976 ml CANDELARIA LOO MD Jun 16, 2021 10:20
[2021-06-16] MEDS: MIDAZOLAM HCL 100 MG in D5W 80 ML IV SCH (10:40)
[2021-06-16] MEDS: cefTRIAXone SOD 1 GM in D5W MINI-BAG PLUS 50 ML IV SCH (11:04)
[2021-06-16] MEDS: CHLORHEXIDINE GLUCONATE 0.12 % 15ML UDC (PERIDEX ORAL RINSE) MT SCH ×2 (11:47→20:24)
[2021-06-16] MEDS: LACRILUBE (AKWA TEARS) OPHTH OINT 3.5 GM OU SCH ×3 (11:47→20:25)
--- NOTE | 2021-06-16 12:39 | REP ---
INDICATION: intubated. COMPARISON: Yesterday at 11:26 a.m. TECHNIQUE: Portable FINDINGS: The technique utilized in obtaining the radiograph has magnified the cardiac silhouette and accentuated the interstitial markings. The tubes and line are unchanged. Diffuse patchy interstitial and airspace opacities seen on the prior exam may have minimally improved, however, the lung onofre are better expanded today. No definite new abnormal opacities have developed. The cardiomediastinal silhouette in the osseous structures are unchanged. IMPRESSION: Possible slight improvement. <Electronically signed by Zack Jackson > 06/15/21 1017
[2021-06-16] MEDS ORDERED: NOREPINEPHRINE 4 MG/4 ML AMP As Ordered ONE (17:16)
[2021-06-16] MEDS: ESMOLOL HCL 2,000 MG in IV 1 EA IV SCH ×2 (17:27→23:21)
[2021-06-16] MEDS: NOREPINEPHRINE BITARTRATE 8 MG in D5W 492 ML IV SCH (18:04)
[2021-06-16] MEDS: BARICITINIB 2MG TABLET (OLUMIANT) FOR EUA PO SCH (20:24)
[2021-06-16] MEDS: ACETAMINOPHEN 325 MG/10.15 ML UDC GT PRN (21:17)
[2021-06-16] MEDS ORDERED: VANCOMYCIN HCL 1,000 MG in IV FLUID PLACE HOLDER 1 EA IV ONE (21:30)
--- NOTE | 2021-06-16 21:32 | ECGEPIP ---
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
--- NOTE | 2021-06-16 21:40 | IPN ---
NEPHROLOGY PROGRESS NOTE DATE: 06/16/2021 SUBJECTIVE: Mr. Barajas is seen and examined this morning at the bedside in the Intensive Care Unit. He remains intubated and sedated. FiO2 this morning was 100% but has been cut down to 85% at around 10:00 a.m. The patient remains in oligoanuric renal failure with no significant urine output and he is positive 3 liters in the past 24 hours. He is dialyzed this afternoon. There is significant hemodynamic instability with attempt at hemodialysis. The patient was tachycardic with heart rate in the 160's to 180's. Ultrafiltration with dialysis was subsequently held. He was started on Esmolol infusion by Critical Care. The patient's blood pressure subsequently became soft and he then needed Levophed infusion. In the end we were only able to remove one liter with his hemodialysis treatment and the dialysis nurse also reported issues with flows from his fistula, and from clotting, despite Heparin infusion. OBJECTIVE: PHYSICAL EXAMINATION: INTAKE AND OUTPUT: Intake in the past 24 hours was 3 liters. Urine output was only 40 mL. Dialysis today was only able to remove one liter. VITAL SIGNS: Temperature 99.1, pulse 118 and up to 170's, respiratory rate 28-35, blood pressure 114/69, saturating 95% on 85% FiO2. GENERAL APPEARANCE: The patient is seen in the ICU intubated, sedated, mechanically ventilated. HEENT: Pupils are reactive to light. Endotracheal tube and orogastric tube are in place. NECK: There is a central line in the left IJ. HEART: Sounds are quite tachycardic. I am unable to appreciate if there are any murmurs. There is only trace peripheral edema. LUNGS: Coarse breath sounds bilaterally. There is tachypnea. There is a chest tube present on the left. ABDOMEN: Soft. Tube feeds are ongoing. There are bowel sounds. GENITOURINARY: Vasquez catheter with almost on urine. EXTREMITIES: Trace edema. There is a fistula in the left arm which is patent. NEUROLOGIC: He is sedate. LABORATORY STUDIES: Sodium 133, potassium 3.0, bicarbonate 21, BUN 137, creatinine 9.5, magnesium 2.9, hemoglobin 14.5, white count 24. Repeat blood cultures were drawn today. Chest x-ray today shows bilateral infiltrates and a left chest tube and a tiny right apical pneumothorax. INPATIENT MEDICATIONS: The patient was on Levophed infusion while he was on dialysis. He was also on Esmolol infusion while he was on hemodialysis. He otherwise continues on: 1. IV Ceftriaxone. 2. IV Doxycycline. 3. Heparin drip. 4. Fentanyl. 5. Versed. 6. Amiodarone 200 mg p.o. daily. 7. Baricitinib one mg p.o. daily. 8. Chlorhexidine twice daily. 9. Hydrocortisone 50 mg IV q. 6 hourly. 10. Insulin. 11. I gave a dose of Midodrine pre-dialysis today. 12. He is also on Protonix 40 mg IV daily. PROBLEMS: 1. Acute oligoanuric renal failure in this patient with failed renal allograft and very unlikely chance of recovering any meaningful renal allograft function - He is dialysis dependent. There is no sign of renal recovery. He is positive 3 liters in the past 24 hours. His FiO2 requirements are 85%. We dialyzed him again this evening but just like his treatment over the , Tuesday the patient had significant hemodynamic instability with hemodialysis. He gets very tachycardic. He was given Esmolol infusion by Critical Care. Then he became hypotensive. He was subsequently put on Levophed by Critical Care. Ultimately we were only able to remove one liter with his dialysis treatment because of the patient's marked tachycardia and subsequent beta-carroll induced hypotension. We will attempt to dialyze him again on and perhaps something can be done for management of his significant tachycardia. Otherwise I feel the patient is going to be progressively in more and more fluid overload (as we had trouble removing fluid with hemodialysis because of his marked tachycardia), and he may end up requiring CRRT. 2. Chronic immunosuppression he is on a usual triple immunosuppression regimen of CellCept, Prednisone and Tacrolimus. All of it is held at present. He is receiving IV Hydrocortisone and he is on Baricitinib for COVID pneumonia managed by Critical Care and I feel that we can continue to hold CellCept and Tacrolimus at present time. 3. Ventilated dependent respiratory failure secondary to COVID pneumonia and complicated by pneumothorax status post chest tube - His FiO2 decreased from 100% yesterday to 85% today. He is on empiric antibiotics (Ceftriaxone and Doxycycline) by the Critical Care Team. Unfortunately, we are unable to keep him on the skin drier side with the use of hemodialysis because the patient gets extremely tachycardic with fluid removal. 4. Atrial fibrillation he is on Amiodarone. He is with the Heparin drip. Critical Care used Esmolol infusion during hemodialysis. I suggest to continue to try and control the heart rate before he is due for his next dialysis treatment.
[2021-06-16] MEDS ORDERED: VANCOMYCIN HCL 1,000 MG, VIAL MATE ADAPTER 1 EACH in NS 250 ML IV SCH (21:45)
[2021-06-16] MEDS: VANCOMYCIN HCL 1,000 MG, VIAL MATE ADAPTER 1 EACH in NS 250 ML IV SCH ×2 (21:55→23:13)
[2021-06-17] VITALS (45 sets, daily range): BP systolic 72–212; BP diastolic 43–86
[2021-06-17] MEDS ORDERED: CEFEPIME HCL 1 GM in D5W MINI-BAG PLUS 50 ML IV SCH ×2
[2021-06-17] MEDS: HumaLOG INSULIN (NovoLOG) PER UNIT SC SCH ×3 (00:23→12:05)
[2021-06-17] MEDS: HYDROCORTISONE 100 MG/2 ML VIAL (J1720 PER 1) IV SCH ×3 (02:46→14:42)
[2021-06-17] MEDS: ACETAMINOPHEN 325 MG/10.15 ML UDC GT PRN ×3 (02:47→14:41)
[2021-06-17] MEDS: HEPARIN DRIP 25,000 UNITS in IV 1 EA IV SCH (03:53)
[2021-06-17] MEDS: fentaNYL CITRATE 1,000 MCG in NS 80 ML IV SCH (03:54)
[2021-06-17] MEDS: MIDAZOLAM HCL 100 MG in D5W 80 ML IV SCH (03:58)
[2021-06-17 04:13] LABS: HEMATOCRIT 40.8 % (42.0-52.0); HEMOGLOBIN 13.9 g/dl (13.5-17.5); MEAN CORPUSCULAR HEMOGLOBIN 27.7 pg (27.0-33.0); MEAN CORPUSCULAR HGB CONC 34.1 g/dl (32.0-36.5); MEAN CORPUSCULAR VOLUME 81.3 fl (80.0-96.0); PLATELET COUNT, AUTOMATED 459 10^3/uL (150-450); RED BLOOD COUNT 5.02 10^6/uL (4.30-6.10)
[2021-06-17 04:22] LABS: WHITE BLOOD COUNT 42.7 10^3/uL (4.0-10.0)
[2021-06-17 04:32] LABS: INR 1.52; PROTHROMBIN TIME 18.7 SECONDS (12.7-14.5)
[2021-06-17 04:40] LABS: LYMPHOCYTES 1 % (16-44); METAMYELOCYTES 2 % (0-0); MONOCYTES 5 % (0-5); MYELOCYTES 1 % (0-0); NEUTROPHILS 91 % (28-66)
[2021-06-17 04:42] LABS: PLATELET ESTIMATE INCREASED (NORMAL)
[2021-06-17 05:48] LABS: ABG BASE EXCESS -9.9 (-2.0-2.0); ABG HCO3 16.1 MEQ/L (22.0-26.0); ABG O2 SATURATION 94.7 % (95.0-99.0); ABG PARTIAL PRESSURE CO2 36.3 mmHg (35.0-45.0); ABG STANDARD HCO3 16.6 MEQ/L (22.0-26.0); ABG TOTAL CO2 17.3 MEQ/L (22.0-29.0); ABG pH (ARTERIAL) 7.266 UNITS (7.350-7.450)
[2021-06-17 05:53] LABS: ABG PARTIAL PRESSURE O2 83.8 mmHg (75.0-100.0)
[2021-06-17 05:53] LABS: ALBUMIN 2.1 GM/DL (3.2-5.2); BILIRUBIN,DIRECT 0.2 MG/DL (0.0-0.2); BILIRUBIN,TOTAL 0.4 MG/DL (0.2-1.0); CALCIUM LEVEL 6.7 MG/DL (8.5-10.1); CREATININE FOR GFR 7.92 MG/DL (0.70-1.30); MAGNESIUM LEVEL 2.6 MG/DL (1.8-2.4); POTASSIUM SERUM 4.4 MEQ/L (3.5-5.1); TOTAL PROTEIN 6.9 GM/DL (6.4-8.2); TROPONIN I 0.18 NG/ML (< 0.10); VANCOMYCIN RANDOM 27.2 UG/ML
[2021-06-17 06:04] LABS: PARTIAL THROMBOPLASTIN TIME 155.8 SECONDS (25.9-37.0)
[2021-06-17] MEDS: PANTOPRAZOLE 40MG VIAL (C9113 PER 1) IV SCH (08:36)
[2021-06-17] MEDS: LEVEMIR (INSULIN DETEMIR) 1 UNITS/0.01ML SC SCH (08:37)
[2021-06-17] MEDS: AMIODARONE 200 MG TAB (PACERONE) PO SCH (08:38)
[2021-06-17] MEDS: CHLORHEXIDINE GLUCONATE 0.12 % 15ML UDC (PERIDEX ORAL RINSE) MT SCH (08:38)
[2021-06-17] MEDS: LACRILUBE (AKWA TEARS) OPHTH OINT 3.5 GM OU SCH ×2 (08:38→15:45)
[2021-06-17] MEDS ORDERED: NOREPINEPHRINE BITARTRATE 16 MG in D5W 492 ML IV SCH (09:01)
[2021-06-17] MEDS ORDERED: NOREPINEPHRINE BITARTRATE 16 MG in D5W 484 ML IV SCH (10:00)
[2021-06-17] MEDS: SODIUM BICARBONATE 325 MG TAB NG SCH ×2 (10:11→12:00)
--- NOTE | 2021-06-17 10:58 | REP ---
INDICATION: abdomanial distension. COMPARISON: CT 06/13/2021 TECHNIQUE: Two views supine abdomen FINDINGS: A nasogastric tube coursing into the left upper quadrant with its proximal port past the GE junction into the fundus. Gaseous distention of the right transverse and proximal left colon noted with gas throughout remainder of the colon to rectosigmoid and scattered gas in small bowel loops. Some minor degenerative changes in the hips. No abnormal soft tissue calcifications or masses. IMPRESSION: 1. Gaseous distension of right, transverse and proximal left colon but gas seen throughout the remainder of the colon to the rectosigmoid and scattered in the small bowel loops. Findings may reflect some focal ileus. No other significant finding. There is a nasogastric tube in the left upper quadrant, its proximal port past the GE junction into the gastric fundus. <Electronically signed by Vniny Duran > 06/17/21 1056
--- NOTE | 2021-06-17 11:16 | REP ---
INDICATION: intubated. COMPARISON: Multiple the latest yesterday at 6:51 a.m. TECHNIQUE: Portable FINDINGS: The technique utilized in obtaining the radiograph has magnified the cardiac silhouette and accentuated the interstitial markings. The tubes and line are unchanged. Diffuse bilateral patchy interstitial and airspace opacities are noted status quo. There is new subcutaneous emphysema on the right and evidence of a tiny right apical pneumothorax. There is evidence of a new left-sided pneumothorax larger than the right. There is no change in the osseous structures. IMPRESSION: 1. New right-sided subcutaneous emphysema and evidence of a tiny right-sided pneumothorax. 2. New left-sided pneumothorax. 3. Other findings as described above. <Electronically signed by Zack Jackson > 06/17/21 [id number]
--- NOTE | 2021-06-17 11:45 | IPNPDOC ---
Text Note Date of Service The patient was seen on 06/17/21. NOTE CRITICAL CARE PROGRESS NOTE: SUBJECTIVE: Patient seen and examined at bedside. Patient remains on mechanical ventilation. His T-max is 102.7 degrees. His fluid balance is +1200 cc in last 24 hours. Yesterday was his last dialysis session and 1 L was taken off. Dialysis was interrupted for hemodynamic instability in which he was tachycardic in the 180s and hypotensive. He is currently on esmolol at 50 and he is sinus tachycardia in the 110s. He is on Levophed 8, he is on heparin drip, he is on Versed drip 6 and fentanyl drip 50. He is tolerating his feeds at goal. He is having bowel movements. All other ROS are negative except as mentioned above PHYSICAL EXAMINATION: VITAL SIGNS: Please see below. GENERAL APPEARANCE: On mechanical ventilation HEENT: no thyromegaly, trachea midline, pupils sluggish but reactive and equal. Normal mucous membranes RESPIRATORY: Reduced breath sounds bilateral, anterior chest tube in place and hooked to waterseal, there is no air leak CARDIOVASCULAR: Sinus tach, +s1 s2, no murmurs. ABDOMEN: Significant abdominal distention EXTREMITIES: no edema or erythema. palpable distal pulses SKIN: no rash, no purpura NEUROLOGICAL: Sedated, moves all extremities PERTINENT LABS/IMAGING: Chest x-ray from today shows bilateral opacities which are unchanged. Left chest tube in place. No pneumothorax. The OG tube, ET tube and TLC are in satisfactory position IMPRESSION: 1. Acute hypoxic respiratory failure secondary to Covid pneumonia/ARDS complicated by pneumothorax status post left chest tube placement with resolved left pneumothorax on chest x-ray and no air leak present. 2. LINDA likely prerenal in the setting of anorexia vs ATN from sepsis, s/p HD via left arm AVF 3. High anion gap metabolic acidosis secondary to renal failure. Lactic acidosis resolved. 4. History of end-stage renal disease on chronic immunosuppressive therapies including daily prednisone 5 mg, now with renal allograft failure 5. New A. fib RVR status post synchronized cardioversion by EMS, on full anticoagulation, status post amio drip and converted to sinus tach 6. Sepsis present on admission 7. Septic shock resolved, suspected adrenal insufficiency PLAN: PLATER BARREL: Sedation vacation to assess mental status then can keep lightly sedated with Versed and fentanyl if need PULM: HOB 30 degrees. Maintain Sp02 88-96 %. Titrate down FiO2 as tolerated. Chest tube to waterseal, chest x-ray no left pneumothorax, drainage device without air leak. We will keep chest tube in place until patient is off positive pressure ventilation. Continue with ARDS protocol low tidal volume inhalation with a goal plateau less than 30 and driving pressure less than 15. ABG 7. on 380/26/12/80 percent with plateau 26. Vent changes as follows: Respiratory rate 24 as there is some auto PEEP present. No proning due to anterior chest tube in place. ABG in afternoon at 4PM. CARDIO: Maintain MAPs 60-65. Amiodarone 200 mg p.o. Hydrocortisone 50 mg every 6 hours for suspected adrenal insufficiency. DC esmolol and titrate down levo as tolerated. GI: DC free water, KUB showing ileus, place OG tube to low intermittent suction for now RENAL: Nephrology on board will need CRRT as patient did not tolerate intermittent dialysis due to hemodynamic instability. Next HD will be tomorrow. Start p.o. bicarb 650 every 6 hours ID: Deep tracheal aspirate shows normal mary. Blood cultures are pending, procalcitonin is 28. Patient is on empiric vancomycin and cefepime. MRSA nares is negative. Baricitinib 1 mg dailyday 4 will complete 14-day course, LFTs elevated will monitor for now if continues to uptrend may have to DC baricitinib ENDO: Monitor FS per routine. Goal range 140-180. On subcu insulin Levemir and Humalog HEME: Heparin drip monitor PTT LINES/CATHETERS: Left IJ central line, Vasquez, chest tube to waterseal CODE STATUS: Full code. DISPOSITION: ICU monitoring. VS,Fishbone, I+O VS, Fishbone, I+O Laboratory Tests 06/17/21 04:00 Vital Signs Date Time Temp Pulse Resp B/P (MAP) Pulse Ox O2 Delivery O2 Flow Rate FiO2 06/17/21 10:38 80/52 06/17/21 10:07 111 28 96 85 06/17/21 09:15 Ventilator 06/17/21 09:00 104.0 06/13/21 09:54 15.0 I&O- Last 24 Hours up to 6 AM 06/17/21 06:00 Intake Total 2786.3 ml Output Total 1080 ml Balance 1706.3 ml CANDELARIA LOO MD Jun 17, 2021 11:45
[2021-06-17] MEDS: BARICITINIB 2MG TABLET (OLUMIANT) FOR EUA PO SCH (14:41)
--- NOTE | 2021-06-17 15:19 | IPN ---
PROGRESS NOTE DATE: 06/17/2021 SUBJECTIVE: I attended Mr. Barajas this morning in the Intensive Care Unit. He has done very poorly the past 24 hours and has been progressively worsening over the course of this hospitalization. He had a very tenuous dialysis treatment yesterday evening which was complicated by significant hemodynamic instability. I would not reattempt to do hemodialysis on him at this point. He is currently on Levophed pressor support at 10 mcg per minute. He is having high grade fever this morning, 104.0. His white count is up to 42. His ferritin has increased to 44,000. He had issues with his fistula during treatment yesterday. I spoke to his sister, Ashley ([phone]) and updated her regarding Mr. Barajas's clinical condition and inability to tolerate regular hemodialysis and overall multiple organ failure/dysfunction and deteriorating clinical status. OBJECTIVE: VITAL SIGNS: T-current 104, pulse 116, respiratory rate 28, blood pressure is 85/50, saturating 94% on 85% FIO2. INTAKE AND OUTPUT: Intake yesterday was 2.3 liters, dialysis yesterday removed 1 liter. Weight on the bed scale today is not recorded. GENERAL: Patient is seen intubated and sedated. There is a central line in the left IJ. HEART: Heart sounds are tachycardic. I am unable to make out if there is any murmur. EXTREMITIES: There is no significant peripheral edema. LUNGS: Coarse breath sounds bilaterally. ABDOMEN: Distended. I do not hear much bowel sounds. His tube feeds are on hold. There is a fistula in the left arm which is patent. GENITOURINARY: There is a Vasquez catheter with minimal urine. EXTREMITIES: There is no edema. Peripheral pulses are weaker. LABORATORY DATA: Hemoglobin 13.9, white count 42.7, platelets are 459,000, pH 7.26, pCO2 36, pO2 83, sodium is 136, potassium is 4.4, bicarbonate 20, BUN 103, creatinine 7.9, ferritin 44,000. Troponin 0.18. Random Vancomycin 27. Blood cultures: No growth for 24 hours x1 set. Abdominal x-ray done this morning shows gaseous distention, possible focal ileus. Chest x-ray done this morning shows new right sided subcutaneous emphysema and evidence of a tiny right sided pneumothorax and a new left sided pneumothorax. INPATIENT MEDICATIONS: He is on a Levophed infusion at 10 mcg/minute. He is on IV Cefepime. He is on Versed. He is on a Heparin drip, Fentanyl, Vancomycin, amiodarone 200 mg p.o. daily, Tylenol p.r.n., Baricitinib 1 mg p.o. daily, hydrocortisone 50 mg IV q. 6 hourly, insulin, Versed p.r.n., Protonix 40 mg IV daily. PROBLEMS: 1. Oligoanuric renal failure in this patient who is critically ill and has no sign of renal recovery and did not tolerate hemodialysis yesterday evening. Because of severe hemodynamic instability, patient is on 10 mcg per minute of Levophed infusion now, systolic is in the 80s. I would not attempt to do intermittent hemodialysis. I have updated his sister, Ashley Barajas, regarding his clinical condition and worsening status and inability to tolerate regular hemodialysis and high likelihood of not surviving this hospitalization. If the family wishes to continue with full and aggressive measures, then we will make an attempt for CRRT tomorrow, June 18. 2. Ventilator dependent respiratory failure secondary to COVID pneumonia, FIO2 requirement is presently 85%. It is also complicated by the presence of pneumothorax. Patient has been intubated since June 13. 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 If the family wishes to continue with aggressive measures, he will be reassessed for CRRT tomorrow. 3. Shock (sepsis). Patient is on stress dose steroids, he is on broad-spectrum antibiotics. His random Vancomycin level was supratherapeutic today. His blood cultures have been negative. He is pressor dependent. He will not tolerate intermittent hemodialysis. Plan for CRRT tomorrow if the family wishes to continue with aggressive measures. His parameters are worsening. He has high-grade fevers. His white count has likewise risen significantly and he has marked elevation and acute phase reactants including ferritin. 4. Atrial fibrillation with RVR. He is on a Heparin infusion and he was treated with Esmolol yesterday by the Critical Care Team but subsequently had worsening hypotension and at this point is off of Esmolol. 5. High anion gap metabolic acidosis in the setting of renal failure. There is no recent lactic acid level and I will draw one. He will be reevaluated for CRRT tomorrow. 6. Disposition: I spoke with the patient's sister, Ashley, and discussed the patient's worsening status and multiple organ failure/dysfunction. She wishes to come in and see him and then will direct us regarding further goals of care and whether she would like CRRT or not.
[2021-06-17] MEDS ORDERED: **VANCO AFTER HD** MISC XX SCH (16:00)
[2021-06-17] MEDS ORDERED: VASOPRESSIN INJ 20 UNITS in NS 499 ML IV SCH (16:00)
--- NOTE | 2021-06-18 15:09 | DS.PDOC ---
Discharge Summary General Date of Admission Jun 13, 2021 at 11:43 Date of Discharge June 17, 2021 Discharge Summary PROCEDURES PERFORMED DURING STAY: Left-sided chest tube, internal jugular central line. ADMITTING DIAGNOSES: 1. Acute hypoxic respiratory failure secondary to Covid pneumonia. 2. LINDA 3. A. fib 4. Pneumothorax 5. History of renal transplant on immunosuppressive agents DISCHARGE DIAGNOSES: 1. Same as above 2. ARDS 3. LINDA requiring hemodialysis COMPLICATIONS/CHIEF COMPLAINT: Covid-19,Pulmonary Edema,Renal Failure. HISTORY OF PRESENT ILLNESS: Dewey Barajas is a 40-year-old male who presented to the emergency department today with complaints of 3 to 4 days of worsening shortness of breath. He states that when this started he thought he had bronchitis. He states he went to urgent care who prescribed him an antibiotic (azithromycin) for bronchitis. He denies being COVID-19 tested at that time. He states that over this. He is also developed a cough which is productive of a yellow sputum. He denies coughing up any blood. He denies any episodes of chest pain or palpitations. He reports diarrhea over these past few days with loose stool. He denies any blood in his stool that he has noticed. He denies experiencing nausea, vomiting, or abdominal pain. Patient states he was not vaccinated for COVID-19 In the emergency department, the patient was found to be in acute hypoxic respiratory failure as well as atrial fibrillation with RVR. The patient did have 1 cardioversion during transport by EMS at 100 kJ per ED staff but persisted in A. fib with RVR despite this. In the ED, he was started on IV and oral metoprolol for rate control. Chest x-ray showed a left-sided pneumothorax. Dr. Soria of cardiothoracic surgery was called and placed a left-sided chest tube. Subsequent CT scan of the chest showed small bilateral pneumothoraces as well as bilateral pleural effusions and concern for pulmonary edema. COVID-19 t est was positive. His lab work also revealed leukocytosis, lactic acidosis, and elevated inflammatory markers, all consistent with acute infection. Additionally, the patient was found to be in acute renal failure. Dr. Alvarenga was called and recommended hemodialysis. Hospitalist team was called for admission.. HOSPITAL COURSE: Patient was in his the ICU with acute hypoxic respiratory failure requiring noninvasive ventilation. After 1 day being in the ICU the patient's respiratory status decompensated and he subsequently intubation and mechanical ventilation. The patient's hospital course was complicated by LINDA requiring hemodialysis. Left pneumothorax requiring chest tube. His hospital course was further complicated by inability to perform hemodialysis effectively. He progressed to become hemodynamically unstable with rapid A. fib RVR and hypotension requiring 2 vasopressors. The sister was eventually notified of his worsening multiorgan failure and she decided to make him DNR. Shortly after the patient started to have bradycardia and progressed to asystole. DISCHARGE MEDICATIONS: Please see below. ALLERGIES: Please see below. DISPOSITION: 20 . TIME SPENT ON DISCHARGE: 25 minutes. Vital Signs/I&Os Vital Signs Date Time Temp Pulse Resp B/P (MAP) Pulse Ox O2 Delivery O2 Flow Rate FiO2 06/17/21 16:00 80 06/17/21 15:59 84 127/59 (81) 78 Ventilator 06/17/21 15:36 28 06/17/21 15:00 104.7 06/13/21 09:54 15.0 I&O- Last 24 Hours up to 6 AM 06/18/21 06:00 Intake Total 725 ml Output Total 10 ml Balance 715 ml Microbiology Microbiology 06/16/21 Blood Culture - Preliminary, Resulted No Growth after 48 hours. All Specime... 06/15/21 Gram Stain - Final, Complete 06/15/21 Sputum Culture - Final, Complete 06/13/21 Blood Culture - Final, Complete NO GROWTH AFTER 5 DAYS 06/13/21 Respiratory Virus Panel (PCR) ([facility]) - Final, Complete SARS-CoV-2 (COVID 19) 06/13/21 Blood Culture - Final, Complete NO GROWTH AFTER 5 DAYS Discharge Medications Scheduled Aspirin (Aspirin EC) 81 Mg Tab, 81 MG PO DAILY, (Reported) Azithromycin (Azithromycin) 250 Mg Tablet, 250 MG PO DAILY, (Reported) Metoprolol Tartrate (Metoprolol Tartrate) 25 Mg Tab, 25 MG PO BID, (Reported) Mycophenolate Mofetil (Mycophenolate Mofetil) 250 Mg Cap, 500 MG PO BID, (Reported) Prednisone (Prednisone) 5 Mg Tab, 5 MG PO DAILY, (Reported) Tacrolimus (Tacrolimus) 1 Mg Cap, 3 MG PO DAILY, (Reported) QAM Tacrolimus (Tacrolimus) 1 Mg Capsule, 2 MG PO QHS, (Reported) Scheduled PRN Albuterol Sulfate (Albuterol Sulfate Hfa) 8.5 Gm Hfa.aer.ad, 2 PUFF INH Q4H PRN for SOB/WHEEZING, (Reported) Allergies Coded Allergies: No Known Drug Allergies (Verified Allergy, Unknown, 06/13/21) CANDELARIA LOO MD Jun 18, 2021 15:08
== END 2021-06-17 17:55 | disposition expired | DRG 871 ==
LOC: M ED 09:01 → M ED INP 11:43 → ENRESERV 11:57 → M ICU 13:12
PROVIDERS: ADMIT Internal Medicine; ATTEND Internal Medicine Pulmonary Disease
PROC: 0W9B30Z Drainage of Left Pleural Cavity with Drainage Device, Percutaneous Approach (ICD-10-PCS; principal; 2021-06-13)
PROC: 02HV33Z Insertion of Infusion Device into Superior Vena Cava, Percutaneous Approach (ICD-10-PCS; 2021-06-13)
PROC: 5A1D70Z Performance of Urinary Filtration, Intermittent, Less than 6 Hours Per Day (ICD-10-PCS; 2021-06-13)
PROC: 0BH17EZ Insertion of Endotracheal Airway into Trachea, Via Natural or Artificial Opening (ICD-10-PCS; 2021-06-13)
PROC: 5A1945Z Respiratory Ventilation, 24-96 Consecutive Hours (ICD-10-PCS; 2021-06-13)
PROC: XW033E5 Introduction of Remdesivir Anti-infective into Peripheral Vein, Percutaneous Approach, New Technology Group 5 (ICD-10-PCS; 2021-06-13)
PROC: 3E0333Z Introduction of Anti-inflammatory into Peripheral Vein, Percutaneous Approach (ICD-10-PCS; 2021-06-13)
PROC: 3E0436Z Introduction of Nutritional Substance into Central Vein, Percutaneous Approach (ICD-10-PCS; 2021-06-15)
DX: A41.9 Sepsis, unspecified organism (principal); J12.82 Pneumonia due to coronavirus disease 2019; J96.01 Acute respiratory failure with hypoxia; U07.1 COVID-19; J15.9 Unspecified bacterial pneumonia; R65.21 Severe sepsis with septic shock; N17.9 Acute kidney failure, unspecified; E87.4 Mixed disorder of acid-base balance; Z94.0 Kidney transplant status; J93.9 Pneumothorax, unspecified; G93.40 Encephalopathy, unspecified; I12.9 Hypertensive chronic kidney disease with stage 1 through stage 4 chronic kidney disease, or unspecified chronic kidney disease; Z66 Do not resuscitate; E89.2 Postprocedural hypoparathyroidism; J98.2 Interstitial emphysema; R63.0 Anorexia; I48.91 Unspecified atrial fibrillation; G43.909 Migraine, unspecified, not intractable, without status migrainosus; N18.9 Chronic kidney disease, unspecified; E87.6 Hypokalemia; Z99.2 Dependence on renal dialysis; Z79.82 Long term (current) use of aspirin; Z79.52 Long term (current) use of systemic steroids; Z79.899 Other long term (current) drug therapy